=== PATIENT | female | born 1945 | race Caucasian/White ===

== ENCOUNTER 2020-03-09 12:55 | Outpatient (REF) | payer MEDICARE, OTHER, SELFPAY ==
[2020-03-09 13:59] LABS: MANUAL DIFF FLAG NO
[2020-03-09 14:05] LABS: Basophils Percent Auto 0.5 % (0-2); Eosinophils Absolute Auto 0.1 X10*3/uL (0.0-0.4); Eosinophils Percent Auto 2.5 % (0-4); Hematocrit 41.6 % (37-47); Hemoglobin 14.1 g/dl (12.0-16.0); Imm Gran Abs Auto 0.01 X10*3/uL (0.00-0.03); Imm Gran Pct Auto 0.2 % (0.0-0.4); Lymphocytes Absolute Auto 1.3 X10*3/uL (1.2-4.9); Mean Corpuscular HGB Conc 33.9 g/dl (31.0-35.0); Mean Corpuscular Hemoglobin 31.7 pg (27.0-33.0); Mean Corpuscular Volume 93.5 fL (80-98); Mean Platelet Volume 10.6 fL (9.4-12.3); Monocytes Absolute Auto 0.5 X10*3/uL (0.1-1.2); Monocytes Percent Auto 8.1 % (2-11); Neutrophils Absolute Auto 3.8 X10*3/uL (2.0-8.3); Neutrophils Percent Auto 66.7 % (45-73); Platelet Count 170 X10*3/uL (160-400); Red Blood Count 4.45 X10*6/uL (4.20-5.50); Red Cell Distribution Width 13.4 % (11.0-16.0); White Blood Count 5.7 X10*3/uL (4.8-10.8)
[2020-03-09 14:30] LABS: Alanine Aminotransferase 27 U/L (0-31); Albumin Level 4.2 g/dL (3.5-5.0); Alkaline Phosphatase 79 U/L (39-117); Anion Gap 15 (12-20); Aspartate Amino Transferase 22 U/L (5-31); Bilirubin Total 0.5 mg/dL (0.0-1.0); Blood Urea Nitrogen 14 mg/dL (9-16); C Reactive Protein 0.36 mg/dL (< or = 0.50); Calcium 8.9 mg/dL (8.4-10.2); Carbon Dioxide 29 mmol/L (22-29); Chloride 101 mmol/L (96-108); Estimated Glomerular Filt Rate > 60; Glucose Random 153 mg/dL (60-115); Potassium 4.5 mmol/l (3.3-5.1); Sodium 140 mmol/L (135-145); Total Protein 6.9 g/dL (6.5-8.0)
[2020-03-09 15:03] LABS: Erythrocyte Sedimentation Rate 14 MM/HR (0-20)
== END 2020-03-09 12:56 | disposition home or self-care (01) ==
LOC: HO.LAB 12:55
PROVIDERS: PCP Internal Medicine; Visit Provider Student in an Organized Health Care Education/Training Program
DX: L40.50 Arthropathic psoriasis, unspecified (principal); Z79.899 Other long term (current) drug therapy
CPT/HCPCS: 36415; 80053; 85025; 85652; 86140

== ENCOUNTER 2020-10-09 13:15 | Outpatient (REF) | payer MEDICARE, OTHER, SELFPAY ==
[2020-10-09 14:24] LABS: MANUAL DIFF FLAG NO
[2020-10-09 14:28] LABS: Basophils Percent Auto 0.6 % (0-2); Eosinophils Absolute Auto 0.2 X10*3/uL (0.0-0.4); Eosinophils Percent Auto 3.2 % (0-4); Hematocrit 43.3 % (37-47); Hemoglobin 14.2 g/dl (12.0-16.0); Imm Gran Abs Auto 0.02 X10*3/uL (0.00-0.03); Imm Gran Pct Auto 0.3 % (0.0-0.4); Lymphocytes Absolute Auto 1.6 X10*3/uL (1.2-4.9); Lymphocytes Percent Auto 23.1 % (20-40); Mean Corpuscular HGB Conc 32.8 g/dl (31.0-35.0); Mean Corpuscular Hemoglobin 29.1 pg (27.0-33.0); Mean Corpuscular Volume 88.7 fL (80-98); Mean Platelet Volume 10.8 fL (9.4-12.3); Monocytes Absolute Auto 0.8 X10*3/uL (0.1-1.2); Monocytes Percent Auto 11.2 % (2-11); Neutrophils Absolute Auto 4.3 X10*3/uL (2.0-8.3); Neutrophils Percent Auto 61.6 % (45-73); Platelet Count 199 X10*3/uL (160-400); Red Blood Count 4.88 X10*6/uL (4.20-5.50); Red Cell Distribution Width 14.2 % (11.0-16.0)
[2020-10-09 14:53] LABS: Alanine Aminotransferase 15 U/L (0-31); Albumin Level 3.9 g/dL (3.5-5.0); Alkaline Phosphatase 86 U/L (39-117); Anion Gap 16 (12-20); Aspartate Amino Transferase 19 U/L (5-31); Bilirubin Total 0.6 mg/dL (0.0-1.0); Blood Urea Nitrogen 22 mg/dL (9-16); C Reactive Protein 0.42 mg/dL (< or = 0.50); Calcium 9.7 mg/dL (8.4-10.2); Carbon Dioxide 29 mmol/L (22-29); Chloride 97 mmol/L (96-108); Estimated Glomerular Filt Rate 51; Glucose Random 198 mg/dL (60-115); Sodium 138 mmol/L (135-145); Total Protein 6.9 g/dL (6.5-8.0)
[2020-10-09 15:11] LABS: Erythrocyte Sedimentation Rate 5 MM/HR (0-20)
== END 2020-10-09 13:16 | disposition home or self-care (01) ==
LOC: HO.LAB 13:15
PROVIDERS: PCP Internal Medicine; Visit Provider Student in an Organized Health Care Education/Training Program
DX: L40.50 Arthropathic psoriasis, unspecified (principal); Z79.899 Other long term (current) drug therapy
CPT/HCPCS: 36415; 80053; 85025; 85652; 86140; 99212

== ENCOUNTER 2023-01-06 13:58 | Outpatient (AMB) | payer MEDICARE, MEDICAID, SELFPAY ==
[2023-01-06 14:08] VITALS: BP 118/66; PULSE 62; TEMP 36.7; O2SAT 97; BMI 35.2
--- NOTE | 2023-01-06 14:08 | MHC.OFFVIS ---
Intake Vital Signs 01/06/23 14:08 Height 5 ft 3 in Weight 198 lb 10.184 oz BMI 35.2 BP 118/66 Blood Pressure Location Rt brachial Position Sitting Pulse 62 Pulse Source Pulse Oximeter Temp 98.0 F Temp Source Skin Pulse Oximetry (%) 97 Intake Visit Reasons: PSA Intake Note: Pt seen today to establish care. Last time she was seen by rheumatology was 10/09/20. C/o pain in back, ankles and feet. 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 Required: No Accompanied by: Self / Same As Patient Allergies leflunomide [Arava] Allergy (Intermediate, Verified 01/06/23 14:12) swollen lisinopril [Zestril] Allergy (Intermediate, Verified 01/06/23 14:12) Cough penicillin V Allergy (Intermediate, Verified 01/06/23 14:12) Rash Bees Allergy (Intermediate, Uncoded 01/06/23 14:12) Anaphylaxis Medication List - Last Reconciled 01/06/23 by Ken Currie MD albuterol sulfate 90 mcg/actuation (Ventolin HFA) inhalation amiodarone 200 mg PO DAILY amlodipine 10 mg PO DAILY apixaban (Eliquis) 5 mg PO BID budesonide-formoterol 80-4.5 mcg/actuation (Symbicort) 2 puffs inhalation BID carvedilol 25 mg PO BID dapagliflozin propanediol (Farxiga) mg PO fluticasone furoate-vilanterol 100-25 mcg/dose (Breo Ellipta) 1 ea inhalation DAILY insulin NPH isoph U-100 human (Novolin N NPH U-100 Insulin isophane) units subcut methotrexate sodium 15 mg (6 x 2.5 mg) PO QWEEK nystatin topical omeprazole 20 mg PO DAILY sacubitril-valsartan 97-103 mg (Entresto) tabs PO simvastatin 10 mg PO DAILY spironolactone mg PO tiotropium bromide (Spiriva with HandiHaler) 1 cap inhalation DAILY trazodone mg PO HPI HPI Comments History of Present Illness Details This is a 77-year-old female with psoriasis and psoriatic arthritis who presents for follow-up. She was last evaluated by Dr. Cueto 10/2020. She states that she started having psoriasis in her early teens, she develops psoriatic arthritis 10-15 years ago. She stated that when she was started on methotrexate her psoriasis rash resolved completely. She would have swollen and tender joints. Over the last year or so patient has been having right shoulder stiffness and bilateral thumb pain. Her psoriasis has come back and she has rashes behind her right ear, her lower back and her umbilicus. She does not use a steroid cream [facility] Medical History (Updated 01/06/23 @ 15:29 by Ken Currie MD) Psoriasis Encounter for testing for latent tuberculosis infection Screening for viral disease Psoriatic arthritis Pacemaker Surgical History History of knee joint replacement Hx of cholecystectomy H/O: hysterectomy Family History Father CVD (cardiovascular disease) Mother Uterine cancer Social History Alcohol intake: current Alcohol intake frequency: holidays/special occasions only Patient Tobacco Use Status: Never used Tobacco Review of Systems [facility] Reports arthralgias, Denies joint swelling and Reports stiffness Skin/Breast Reports pruritus and Reports rash Physical Exam Vital Signs: Last Vital Signs Temp 98.0 F 01/06/23 14:08 Pulse 62 01/06/23 14:08 BP 118/66 01/06/23 14:08 Pulse Ox 97 01/06/23 14:08 BMI result Body Mass Index 35.2 Const General: cooperative, no acute distress and well developed Orientation/consciousness: patient oriented x3 HEENT Head: Yes normal to inspection Resp Effort & Inspection: normal respiratory effort and able to speak in complete sentences Auscultation: clear to auscultation bilaterally Skin Other: Large patches of psoriasis on her lower back Small patch of psoriasis behind the right ear, psoriasis rash on her umbilicus Neuro General: patient oriented x3 Extrem Other: No synovitis on exam. Bilateral Heberden's nodes Bilateral 1st CMC tenderness, mild Positive empty can test on the right Negative straight leg raise test Negative Marla test bilaterally Assessment & Plan Assessment & Plan (1) Psoriatic arthritis: Code(s): L40.50 - Arthropathic psoriasis, unspecified Plan: This is a 77-year-old female with psoriasis and psoriatic arthritis who presents for follow-up. States that she was diagnosed with psoriasis in her early teens and psoriatic arthritis 10-15 years ago. Her psoriasis and psoriatic arthritis responded very well to methotrexate 15 mg weekly. She stated however that she discontinued methotrexate due to hair loss, which she grew after discontinuation. Upon evaluation today I do not see any active synovitis. Her joint pain is due to right rotator cuff tendinitis and bilateral thumb arthritis We might consider restarting methotrexate to treat her psoriasis. 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 Will monitor patient for side effects with frequent lab work. Advised patient to take folic acid daily to prevent complications of methotrexate. Check labs today, plan to start methotrexate after labs are completed (3) Arthritis of carpometacarpal (CMC) joint of both thumbs: Code(s): M18.0 - Bilateral primary osteoarthritis of first carpometacarpal joints Plan: I educated patient about the benign nature of this condition. Patient is not interested in any specific treatment for it at this date (4) Rotator cuff arthropathy of right shoulder: Code(s): M12.811 - Other specific arthropathies, not elsewhere classified, right shoulder Plan: Patient states that her symptoms are mild and is not interested in physical therapy Plan I spent 45 minutes reviewing patient's chart, evaluating patient, ordering diagnostic workup, counseling patient and documenting in the chart Orders: Orders Complete Blood Count Auto Diff Today Z79.899 - Other technician terminal and repeater (current) drug therapy Comprehensive Met. Panel Today Z79.899 - Other detention (current) drug therapy C Reactive Protein Today Z79.899 - Other detention (current) drug therapy T Spot TB Today Z11.7 - Encounter for testing for latent tuberculosis infection XR shoulder LT min 2V Today Z79.899 - Other technician terminal and repeater (current) drug therapy XR shoulder RT min 2V Today Z79.899 - Other detention (current) drug therapy Complete Blood Count Auto Diff 2 Months Z79.899 - Other technician terminal and repeater (current) drug therapy Comprehensive Met. Panel 2 Months Z79.899 - Other technician terminal and repeater (current) drug therapy C Reactive Protein 2 Months Z79.899 - Other detention (current) drug therapy Complete Blood Count Auto Diff 5 Months Z79.899 - Other detention (current) drug therapy Erythrocyte Sedimentation Rate 5 Months Z79.899 - Other detention (current) drug therapy Erythrocyte Sedimentation Rate Today Z79.899 - Other detention (current) drug therapy Hepatitis A,B,C Profile Today Z11.59 - Encounter for screening for other viral diseases XR hand wrist LT Today Z79.899 - Other technician terminal and repeater (current) drug therapy XR hand wrist RT Today Z79.899 - Other detention (current) drug therapy Erythrocyte Sedimentation Rate 2 Months Z79.899 - Other detention (current) drug therapy Comprehensive Met. Panel 5 Months Z79.899 - Other technician terminal and repeater (current) drug therapy C Reactive Protein 5 Months Z79.899 - Other technician terminal and repeater (current) drug therapy Coding Level of Care Code Est Pt Level 5 (29942) Diagnoses Psoriatic arthritis L40.50 longterm methotrexate user Z79.899 Arthritis of carpometacarpal (CMC) joint of both thumbs M18.0 Rotator cuff arthropathy of right shoulder M12.811
== END 2023-01-06 14:46 | disposition home or self-care (01) ==
PROVIDERS: Visit Provider Student in an Organized Health Care Education/Training Program
DX: L40.50 Arthropathic psoriasis, unspecified (principal); Z79.631 Long term (current) use of antimetabolite agent; M18.0 Bilateral primary osteoarthritis of first carpometacarpal joints; M12.811 Other specific arthropathies, not elsewhere classified, right shoulder
CPT/HCPCS: 99215

== ENCOUNTER → 2023-01-06 13:58 | Outpatient (BNVA) | payer MEDICARE, MEDICAID, SELFPAY | PROVIDERS: Visit Provider Student in an Organized Health Care Education/Training Program | DX: L40.50 Arthropathic psoriasis, unspecified (principal); M18.0 Bilateral primary osteoarthritis of first carpometacarpal joints; M12.811 Other specific arthropathies, not elsewhere classified, right shoulder; Z79.899 Other long term (current) drug therapy | CPT/HCPCS: 99212 ==

== ENCOUNTER 2023-01-10 09:50 | Outpatient (REF) | payer MEDICARE, OTHER, MEDICAID, SELFPAY ==
[2023-01-10 11:54] LABS: MANUAL DIFF FLAG NO
[2023-01-10 12:16] LABS: Basophils Absolute Auto 0.1 X10*3/uL (0.0-0.2); Basophils Percent Auto 0.8 % (0-2); Eosinophils Absolute Auto 0.2 X10*3/uL (0.0-0.4); Eosinophils Percent Auto 2.9 % (0-4); Hematocrit 39.8 % (37.0-47.0); Hemoglobin 13.1 g/dl (12.0-16.0); Imm Gran Abs Auto 0.02 X10*3/uL (0.00-0.03); Imm Gran Pct Auto 0.3 % (0.0-0.4); Lymphocytes Absolute Auto 1.2 X10*3/uL (1.2-4.9); Mean Corpuscular HGB Conc 32.9 g/dl (31.0-35.0); Mean Corpuscular Hemoglobin 31.5 pg (27.0-33.0); Mean Corpuscular Volume 95.7 fL (80.0-98.0); Mean Platelet Volume 10.4 fL (9.4-12.3); Monocytes Absolute Auto 0.7 X10*3/uL (0.1-1.2); Monocytes Percent Auto 8.9 % (2-11); Neutrophils Absolute Auto 5.1 x10*3/uL (2.0-8.3); Neutrophils Percent Auto 70.1 % (45-73); Platelet Count 155 X10*3/uL (160-400); Red Blood Count 4.16 X10*6/uL (4.20-5.50); Red Cell Distribution Width 13.2 % (11.0-16.0); White Blood Count 7.3 X10*3/uL (4.8-10.8)
[2023-01-12 16:49] LABS: TS Negative Control Passed; TS Panel A 0; TS Panel B 0; TS Positive Control Passed; TSpotTB Negative (Negative)
== END 2023-01-10 09:51 | disposition home or self-care (01) ==
LOC: HO.WFDLDS 09:50
PROVIDERS: Visit Provider Student in an Organized Health Care Education/Training Program
DX: Z11.7 Encounter for testing for latent tuberculosis infection (principal); Z11.59 Encounter for screening for other viral diseases; Z79.899 Other long term (current) drug therapy; Z72.89 Other problems related to lifestyle
CPT/HCPCS: 36415; 80053; 85025; 85652; 86140; 86481; 86704; 86706; 86709; 86803; 87340

== ENCOUNTER 2023-03-20 13:49 | Outpatient (REF) | payer MEDICARE, MEDICAID, SELFPAY ==
--- NOTE | ~2023-03-20 | XR_ITS ---
EXAMINATION: Bilateral shoulder series CLINICAL INFORMATION: Reason for Exam Z79.899 - Other emt intermediate (current) drug therapy COMPARISON: None. TECHNIQUE: 4 views of each shoulder FINDINGS: Right shoulder: Acromioclavicular joint severe osteoarthritis with prominent marginal osteophytes subchondral cystic change and some calcification in capsule. Glenoid humeral joint: Chondrocalcinosis. Marginal osteophytes indicative of mild osteoarthritis. Enthesopathic cystic change at the greater tuberosity. Pacer present overlying the right chest with leads intact. Left shoulder: Acromioclavicular joint there is mild osteoarthritis with marginal osteophytes and some calcification in the capsule similar to that noted on the right. Glenohumeral joint: Mild osteoarthritis with small marginal osteophytes. Enthesopathic cystic change in the greater tuberosity. XR/XR shoulder LT min 2V Impression: RIGHT SHOULDER: Degenerative changes with chondrocalcinosis. LEFT SHOULDER: Mild osteoarthritis of the glenohumeral and acromioclavicular joints.
--- NOTE | ~2023-03-20 | XR_ITS ---
EXAMINATION: Bilateral hand series CLINICAL INFORMATION: Reason for Exam Z79.899 - Other halfway (current) drug therapy COMPARISON: None. TECHNIQUE: 3 views of each hand including wrist. FINDINGS: Right hand: There is chondrocalcinosis noted in the ulnocarpal articulation. There is arterial calcification. Triscaphoid joint there is mild arthrosis with subchondral cystic change present. Mild osteoarthritis of the third and fourth metacarpophalangeal joints manifested by marginal osteophytes and/or subchondral cystic change. The interphalangeal joints: Mild osteoarthritis of the DIP joints manifested by small marginal osteophytes and/or capsular calcification. Left hand: Chondrocalcinosis. Arterial calcification. Wrist joints intact. Metacarpophalangeal joints: There is mild osteoarthritis of the third and fourth metacarpophalangeal joints manifested by small marginal osteophytes and/or subchondral cystic change. Interphalangeal joints: There is mild osteoarthritis of the third and fourth DIP joints manifested by marginal osteophytes and/or subchondral cystic change. XR/XR hand wrist RT IMPRESSION: RIGHT HAND: Chondrocalcinosis. Mild osteoarthritis of multiple joints. LEFT HAND: Chondrocalcinosis. Mild osteoarthritis of multiple joints. Calcific atherosclerotic disease.
--- NOTE | ~2023-03-20 | XR_ITS ---
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 TECHNIQUE: 4 views of each shoulder FINDINGS: Right shoulder: Acromioclavicular joint severe osteoarthritis with prominent marginal osteophytes subchondral cystic change and some calcification in capsule. Glenoid humeral joint: Chondrocalcinosis. Marginal osteophytes indicative of mild osteoarthritis. Enthesopathic cystic change at the greater tuberosity. Pacer present overlying the right chest with leads intact. Left shoulder: Acromioclavicular joint there is mild osteoarthritis with marginal osteophytes and some calcification in the capsule similar to that noted on the right. Glenohumeral joint: Mild osteoarthritis with small marginal osteophytes. Enthesopathic cystic change in the greater tuberosity. XR/XR shoulder RT min 2V Impression: RIGHT SHOULDER: Degenerative changes with chondrocalcinosis. LEFT SHOULDER: Mild osteoarthritis of the glenohumeral and acromioclavicular joints.
--- NOTE | ~2023-03-20 | XR_ITS ---
EXAMINATION: Bilateral hand series CLINICAL INFORMATION: Reason for Exam Z79.899 - Other fci (current) drug therapy COMPARISON: None. TECHNIQUE: 3 views of each hand including wrist. FINDINGS: Right hand: There is chondrocalcinosis noted in the ulnocarpal articulation. There is arterial calcification. Triscaphoid joint there is mild arthrosis with subchondral cystic change present. Mild osteoarthritis of the third and fourth metacarpophalangeal joints manifested by marginal osteophytes and/or subchondral cystic change. The interphalangeal joints: Mild osteoarthritis of the DIP joints manifested by small marginal osteophytes and/or capsular calcification. Left hand: Chondrocalcinosis. Arterial calcification. Wrist joints intact. Metacarpophalangeal joints: There is mild osteoarthritis of the third and fourth metacarpophalangeal joints manifested by small marginal osteophytes and/or subchondral cystic change. Interphalangeal joints: There is mild osteoarthritis of the third and fourth DIP joints manifested by marginal osteophytes and/or subchondral cystic change. XR/XR hand wrist LT IMPRESSION: RIGHT HAND: Chondrocalcinosis. Mild osteoarthritis of multiple joints. LEFT HAND: Chondrocalcinosis. Mild osteoarthritis of multiple joints. Calcific atherosclerotic disease.
[2023-03-20 14:03] LABS: MANUAL DIFF FLAG NO
[2023-03-20 14:28] LABS: Basophils Percent Auto 0.6 % (0-2); Eosinophils Absolute Auto 0.1 X10*3/uL (0.0-0.4); Hematocrit 37.4 % (37.0-47.0); Hemoglobin 12.5 g/dl (12.0-16.0); Imm Gran Abs Auto 0.02 X10*3/uL (0.00-0.03); Imm Gran Pct Auto 0.3 % (0.0-0.4); Lymphocytes Absolute Auto 1.3 X10*3/uL (1.2-4.9); Mean Corpuscular HGB Conc 33.4 g/dl (31.0-35.0); Mean Corpuscular Hemoglobin 31.8 pg (27.0-33.0); Mean Corpuscular Volume 95.2 fL (80.0-98.0); Mean Platelet Volume 10.5 fL (9.4-12.3); Monocytes Absolute Auto 0.7 X10*3/uL (0.1-1.2); Monocytes Percent Auto 10.4 % (2-11); Neutrophils Absolute Auto 4.6 x10*3/uL (2.0-8.3); Neutrophils Percent Auto 67.7 % (45-73); Platelet Count 158 X10*3/uL (160-400); Red Blood Count 3.93 X10*6/uL (4.20-5.50); Red Cell Distribution Width 13.8 % (11.0-16.0); White Blood Count 6.8 X10*3/uL (4.8-10.8)
[2023-03-20 14:51] LABS: Alanine Aminotransferase 15 U/L (0-31); Albumin Level 4.2 g/dL (3.5-5.0); Alkaline Phosphatase 89 U/L (39-117); Anion Gap 14 (12-20); Aspartate Amino Transferase 18 U/L (5-31); Bilirubin Total 0.5 mg/dL (0.0-1.0); Blood Urea Nitrogen 22 mg/dL (9-16); C Reactive Protein 0.43 mg/dL (< or = 0.50); Calcium 9.5 mg/dL (8.4-10.2); Carbon Dioxide 33 mmol/L (22-29); Chloride 96 mmol/L (96-108); Estimated Glomerular Filt Rate 38; Glucose Random 218 mg/dL (60-115); Potassium 4.3 mmol/L (3.3-5.1); Sodium 139 mmol/L (135-145); Total Protein 7.4 g/dL (6.5-8.0)
[2023-03-20 15:13] LABS: Erythrocyte Sedimentation Rate 17 MM/HR (0-20)
== END 2023-03-20 13:50 | disposition home or self-care (01) ==
LOC: HO.XRAY 13:49
PROVIDERS: Visit Provider Student in an Organized Health Care Education/Training Program
DX: Z79.899 Other long term (current) drug therapy (principal); M19.041 Primary osteoarthritis, right hand; M19.042 Primary osteoarthritis, left hand; M19.012 Primary osteoarthritis, left shoulder; M19.011 Primary osteoarthritis, right shoulder
CPT/HCPCS: 36415; 73030; 73110; 73130; 80053; 85025; 85652; 86140

== ENCOUNTER 2023-03-22 10:37 | Outpatient (AMB) | payer MEDICARE, MEDICAID, SELFPAY ==
--- OUTSIDE RECORDS SUMMARY | 2023-03-22 10:38 | XMS_ITS | Continuity of Care Document ---
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 Refills 11, Maintenance, 01/12/22 12:09:00 EDT, Aerosol, Route to Pharmacy Electronically, [id number], [facility], 163, cm, 01/12/22 10:50:00 EDT,... Start Date: 01/12/22 Stop Date: 01/07/23 Status: Ordered amiodarone 200 mg oral tablet 200 mg, 1, tablet, By Mouth, Daily, Refills 0, Maintenance, 12/13/22 9:57:00 EDT, Partial fill uponpatient request if the prescription is for a schedule II opioid drug. Start Date: 12/13/22 Status: Ordered amLODIPine 10 mg oral tablet 10 mg, 1, tablet, By Mouth, Daily, # 90 tablet, Refills 2, Tot. Refills 2, Maintenance, 10/19/22 11:20:00 EDT, Route to Pharmacy Electronically, [facility], Partial fill upon patient request if the prescription is for a schedule II opioid d... Start Date: 10/19/22 Status: Ordered Breo Ellipta 100 mcg-25 mcg/inh inhalation powder 1 puffs, Inhalation, Daily, # 1 each, 11 Refills, Maintenance, 01/12/22 12:08:00 EDT, Inhaler, [facility], Partial fill upon patient request if the prescription is for a schedule II opioiddrug., 1 puffs Inhalation Daily,x30 days, 163, cm,... Start Date: 01/12/22 Stop Date: 01/07/23 Status: Ordered carvedilol 25 mg oral tablet 50 mg, 2, tablet, By Mouth, 2 times a day, # 360 tablet, Refills 11, Tot. Refills 11, Maintenance, 07/01/22 11:12:00 EDT, Route to Pharmacy Electronically, [facility], Dose increase, 163, cm, 03/21/22 12:14:00 EST, Height, 87.3, kg, ... Start Date: 07/01/22 Stop Date: 06/15/25 Status: Ordered dapagliflozin 10 mg oral tablet 1 tablet = 10 mg, By Mouth, Daily, # 90 tablet, 11 Refills, Maintenance, 03/21/22 13:01:00 EST, Tablet, [facility], Dose increase, 163, cm, 03/21/22 12:14:00 EST, Height, 87.3, kg, 08/12/21 7:07:00 EDT, Dry Weight Start Date: 03/21/22 Status: Ordered DIURETIC INTERVENTION DIURETIC INTERVENTION, See Instructions, # 1 each, Refills 0, Tot. Refills 0, Maintenance, Stardard Intervention for high PAD (PAD above goal for at least 2 readings) Double dose of loop diuretic for 2 days. Return to baseline dose of diuretics f... Start Date: 08/18/21 Status: Ordered Eliquis 5 mg oral tablet 1 tablet = 5 mg, By Mouth, 2 times a day, # 60 tablet, 0 Refills, Maintenance, 11/28/20 18:30:00 EDT, Tablet, Partial fill upon patient request if the prescription is for a schedule II opioid drug. Start Date: 11/28/20 Status: Ordered Entresto 97 mg-103 mg oral tablet 1 tablet, By Mouth, 2 times a day, # 60 tablet, 5 Refills, Maintenance, 12/21/22 12:30:00 EDT, [facility], 30, Take 1 tablet by mouth twice daily, 163, cm, 12/13/22 9:49:00 EDT, Height, 87.3, kg, 08/12/21 7:07:00 EDT, Dry Weight Start Date: 12/21/22 Status: Ordered EpiPen 2-Dave 0.3 mg injectable kit = 0.3 mg, Intramuscular, Once, 0 Refills, Maintenance, 02/08/21 11:58:00 EST, Partial fill upon patient request if the prescription is for a schedule II opioid drug. Start Date: 02/08/21 Status: Ordered meclizine 25 mg oral tablet 1 tablet = 25 mg, By Mouth, 3 times a day, 0 Refills, Maintenance, 02/08/21 12:00:00 EST, Partial fill upon patient request if the prescription is for a schedule II opioid drug. Start Date: 02/08/21 Status: Ordered nitroglycerin 0.4 mg sublingual tablet 1 tablet = 0.4 mg, Sublingual, Every 5 minutes, PRN for chest pain, # 25 tablet, 2 Refills, Maintenance, 04/24/20 11:22:00 EST, Tablet, [facility], 163, cm, 02/14/20 10:48:00 EST, Height, 99, kg, 09/19/19 18:05:00 EDT, Dry Weight Start Date: 04/24/20 Status: Ordered NovoLIN N FlexPen 100 units/mL subcutaneous suspension Subcutaneous Infusion, 2 times a day, 0 Refills, Maintenance, 02/08/21 12:01:00 EST, Partial fill upon patient request if the prescription is for a schedule II opioid drug. Start Date: 02/08/21 Status: Ordered omeprazole 20 mg oral delayed release tablet 1 tablet = 20 mg, By Mouth, Daily, # 90 tablet, 0 Refills, Maintenance, 06/12/20 12:27:00 EST, CR Tablet, Partial fill upon patient request if the prescription is for a schedule II opioid drug. Start Date: 06/12/20 Status: Ordered simvastatin 10 mg oral tablet 10 mg, 1, tablet, By Mouth, Daily, Refills 0, Maintenance, 10/22/20 18:04:00 EDT, Partial fill uponpatient request if the prescription is for a schedule II opioid drug. Start Date: 10/22/20 Status: Ordered Spiriva Respimat 1.25 mcg/inh inhalation aerosol 2 sprays, Inhalation, Daily, # 1 each, 11 Refills, Maintenance, 01/12/22 12:08:00 EDT, [facility], 163, cm, 01/12/22 10:50:00 EDT, Height, 87.3, kg, 08/12/21 7:07:00 EDT, Dry Weight Start Date: 01/12/22 Stop Date: 01/07/23 Status: Ordered spironolactone 50 mg oral tablet 1 tablet = 50 mg, By Mouth, Daily, dose increase, # 90 tablet, 3 Refills, Maintenance, 05/05/22 11:55:00 EST, [facility], 163, cm, 03/21/22 12:14:00 EST, Height, 87.3, kg, 08/12/21 7:07:00EDT, Dry Weight Start Date: 05/05/22 Stop Date: 04/30/23 Status: Ordered torsemide 20 mg oral tablet 1 tablet = 20 mg, By Mouth, Daily, # 90 tablet, 11 Refills, Maintenance, 07/13/21 11:14:00 EDT, Tablet, [facility], Partial fill upon patient request if the prescription is for a schedule II opioid drug., 163, cm, 07/13/21 10:43:00 EDT, Hei... Start Date: 07/13/21 Status: Ordered traZODone 100 mg oral tablet TAKE 1 2 TO 1 (ONE HALF TO ONE) TABLET BY MOUTH ONCE DAILY AT BEDTIME NEEDED FOR 30 DAYS Start Date: 11/05/20 Status: Ordered Tylenol Caplet = 650 mg, By Mouth, Every 4 hours, PRN as needed, 0 Refills, Maintenance, 09/25/20 12:29:00 EDT, Partial fill upon patient request if the prescription is for a schedule II opioid drug. 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 Active Left bundle branch block Confirmed Active Mild asthma Confirmed Active Obese class I Confirmed Active Primary cardiomyopathy Confirmed Active Phlebitis and thrombophlebitis of superficial veins of upper extremities Confirmed Active Social History Social History Type Response Smoking Status Never (less than 100 in lifetime) entered on: 09/19/19 Sex Patient Care team information Care Team Personnel Name: Tenisha Lara MD Position: [facility] Physician - Pediatrics Member Role: PCP Address: Address: [address] [place] [id number]- Name: Bettina Moran RN Position: S RN Member Role: Primary Care Nurse Name: Britany Fuentes RN Position: [facility] RN Member Role: Primary Care Nurse Name: Nathan ECHEVERRIA, Jenaro Hinojosa Position: [facility] Cardiology MD Member Role: Lifetime Consulting Physician Address: Address: [address] [place] [address] [place] [address]- Name: Sandra Dubois RN Position: [facility] RN Member Role: Primary Care Nurse Name: Taylor Lopes RN Position: [facility] RN Member Role: Primary Care Nurse Name: Haresh Deal RN Position: [facility] SN RN Member Role: Primary Care Nurse Name: Taina Lambert RN Position: [facility] RN Member Role: Primary Care Nurse Name: Teri Azevedo RN Position: [facility] SN RN Member Role: Primary Care Nurse Name: Zoie Abdalla RN Position: [facility] RN Member Role: Primary Care Nurse Care Team Related Persons Name: BESSIE ORTIZ Address: home [address] [place] [address] Name: SAMANTHA KHAN Address: home [address] [place] [address] Name: CARMEN WORTHY
--- OUTSIDE RECORDS SUMMARY | 2023-03-22 10:38 | XMS_ITS | Continuity of Care Document ---
Author Name Unknown Organization [facility] Address [address] [place] [id number]- Care Team Providers Care Laboratory Sampler Name Role Phone Tenisha Lara MD Primary Care Physician Encounter [facility] [place] R [id number] Date(s): 03/29/22 - 04/28/22 [facility] [address] [place] [address]- [place] Allergies, Adverse Reactions, Alerts Substance Reaction Severity Status codeine headache Active penicillins 1 Active Arava Active Zestril cough Active Augmentin Active Bee Stings Active 1Tolerates cefepime Medications albuterol CFC free 90 mcg/inh inhalation aerosol 2, puffs, Inhalation, 4 times a day, PRN, # 18 Gm, Refills 11, Tot. Refills 11, Maintenance, 01/12/22 12:09:00 EDT, Aerosol, Route to Pharmacy Electronically, [id number], [facility], 163, cm, 01/12/22 10:50:00 EDT,... Start Date: 01/12/22 Stop Date: 01/07/23 Status: Ordered amiodarone 200 mg oral tablet 200 mg, 1, tablet, By Mouth, Daily, # 30 tablet, Refills 1, Tot. Refills 1, Maintenance, 02/21/22 12:41:00 EST, Route to Pharmacy Electronically, [facility], Partial fill upon patient request if the prescription is for a schedule II opioid... Start Date: 02/21/22 Stop Date: 04/22/22 Status: Ordered amLODIPine 10 mg oral tablet 10 mg, 1, tablet, By Mouth, Daily, # 90 tablet, Refills 11, Tot. Refills 11, Maintenance, 07/13/21 11:13:00 EDT, Route to Pharmacy Electronically, [facility], Partial fill upon patient request if the prescription is for a schedule II opioid... Start Date: 07/13/21 Status: Ordered Breo Ellipta 100 mcg-25 mcg/inh inhalation powder 1 puffs, Inhalation, Daily, # 1 each, 11 Refills, Maintenance, 01/12/22 12:08:00 EDT, Inhaler, [facility], Partial fill upon patient request if the prescription is for a schedule II opioiddrug., 1 puffs Inhalation Daily,x30 days, 163, cm,... Start Date: 01/12/22 Stop Date: 01/07/23 Status: Ordered carvedilol 25 mg oral tablet 25 mg, 1, tablet, By Mouth, 2 times a day, # 180 tablet, Refills 11, Tot. Refills 11, Maintenance, 07/13/21 11:12:00 EDT, Route to Pharmacy Electronically, [facility], Dose increase, 163, cm, 07/13/21 10:43:00 EDT, Height, 93.5, kg, 2... Start Date: 07/13/21 Status: Ordered dapagliflozin 10 mg oral tablet 1 tablet = 10 mg, By Mouth, Daily, # 90 tablet, 11 Refills, Maintenance, 03/21/22 13:01:00 EST, Tablet, [facility], Dose increase, 163, cm, 03/21/22 [...] By Mouth, 2 times a day, # 180 tablet, 11 Refills, Maintenance, 10/25/21 15:10:00 EDT, Tablet, [facility], Partial fill upon patient request if the prescription is for a scheduleII opioid drug., 1 tablet By Mouth 2 times a day, 1... Start Date: 10/25/21 Status: Ordered EpiPen 2-Dave 0.3 mg injectable [...] 2 Refills, Maintenance, 04/24/20 11:22:00 EST, Tablet, [facility], 163, cm, 02/14/20 10:48:00 EST, [...] each, 11 Refills, Maintenance, 01/12/22 12:08:00 EDT, [facility], 163, cm, 01/12/22 10:50:00 EDT, Height, 87.3, kg, 08/12/21 7:07:00 EDT, Dry Weight Start Date: 01/12/22 Stop Date: 01/07/23 Status: Ordered spironolactone 50 mg oral tablet 1 tablet = 50 mg, By Mouth, Daily, dose increase, # 30 tablet, 3 Refills, Maintenance, 04/01/22 12:09:00 EST, [facility], 163, cm, 03/21/22 12:14:00 EST, Height, 87.3, kg, 08/12/21 7:07:00EDT, Dry Weight Start Date: 04/01/22 Stop Date: 07/30/22 Status: Ordered torsemide 20 mg oral tablet 1 tablet = 20 mg, By Mouth, Daily, # 90 tablet, 11 Refills, Maintenance, 07/13/21 11:14:00 EDT, Tablet, [facility], Partial fill upon patient request [...] Care team information Care Team Personnel Name: Aura Fox RN Position: [facility] ED RN W/OE and Tasks Member Role: Primary Care Nurse Name: Opal Gonzalez RN Position: S RN Member Role: Primary Care Nurse Name: Tenisha Lara MD Position: [facility] General Pediatrics MD Member Role: PCP Address: Address: [address] [place] [address]- Name: Bettina Moran RN Position: [facility] RN Member Role: Primary Care Nurse Name: Britany Fuentes RN Position: [facility] ED RN W/OE and Tasks Member Role: Primary Care Nurse Name: Jenaro Evans MD Position: [facility] Cardiology MD Member Role: Lifetime Consulting Physician Address: Address: [address] [place] [address] Cardiovascular [place], [place] [address] Name: Sandra Dubois RN Position: [facility] RN Member Role: Primary Care Nurse Name: Taylor Lopes RN Position: [facility] RN Member Role: Primary Care Nurse Name: Haresh Deal RN Position: S RN Member Role: Primary Care Nurse Name: Taina Lambert RN Position: S RN Member Role: Primary Care Nurse Name: Teri Azevedo RN Position: [facility] SN RN Member Role: Primary Care Nurse Name: Zoie Abdalla RN Position: S RN Member Role: Primary Care Nurse Care Team Related Persons Name: BESSIE ORTIZ Address: home [address] [place] [address] Name: SAMANTHA KHAN Address: home [address] [place] [address] Name: CARMEN WORTHY
--- OUTSIDE RECORDS SUMMARY | 2023-03-22 10:38 | XMS_ITS | Continuity of Care Document ---
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 Refills 11, Maintenance, 01/12/22 12:09:00 EDT, Aerosol, Route to Pharmacy Electronically, [id number], [facility], 163, cm, 01/12/22 10:50:00 EDT,... Start Date: 01/12/22 Stop Date: 01/07/23 Status: Ordered amiodarone 200 mg oral tablet 200 mg, 1, tablet, By Mouth, Daily, # 30 tablet, Refills 5, Tot. Refills 5, Maintenance, 08/20/21 10:22:00 EDT, Route to Pharmacy Electronically, [facility], Partial fill upon patient request if the prescription is for a schedule II opioid... Start Date: 08/20/21 Status: Ordered amLODIPine 10 mg oral tablet 10 mg, 1, tablet, By Mouth, Daily, # 90 tablet, Refills 11, Tot. Refills 11, Maintenance, 07/13/21 11:13:00 EDT, Route to Pharmacy Electronically, [facility], Partial fill upon patient request if the prescription is for a schedule II opioid... Start Date: 07/13/21 Status: Ordered Breo Ellipta 100 mcg-25 mcg/inh inhalation powder 1 puffs, Inhalation, Daily, # 1 each, 11 Refills, Maintenance, 01/12/22 12:08:00 EDT, Inhaler, [facility], Partial fill upon patient request if the prescription is for a schedule II opioiddrug., 1 puffs Inhalation Daily,x30 days, 163, cm,... Start Date: 01/12/22 Stop Date: 01/07/23 Status: Ordered carvedilol 25 mg oral tablet 25 mg, 1, tablet, By Mouth, 2 times a day, # 180 tablet, Refills 11, Tot. Refills 11, Maintenance, 07/13/21 11:12:00 EDT, Route to Pharmacy Electronically, [facility], Dose increase, 163, cm, 07/13/21 10:43:00 EDT, Height, 93.5, kg, ... Start Date: 07/13/21 Status: Ordered dapagliflozin 5 mg oral tablet 1 tablet = 5 mg, By Mouth, Daily, # 30 tablet, 11 Refills, Maintenance, 12/15/21 12:12:00 EDT, Tablet, [facility], this is a dose decrease, 163, cm, 10/25/21 14:46:00 EDT, Height, 87.3, kg, 08/12/21 7:07:00 EDT, Dry Weight Start Date: 12/15/21 Stop Date: 12/10/22 Status: Ordered DIURETIC INTERVENTION DIURETIC INTERVENTION, See [...] 11 Refills, Maintenance, 10/25/21 15:10:00 EDT, Tablet, [facility], Partial fill upon patient [...] 2 Refills, Maintenance, 04/24/20 11:22:00 EST, Tablet, [facility], 163, cm, 02/14/20 10:48:00 [...] each, 11 Refills, Maintenance, 01/12/22 12:08:00 EDT, [facility], 163, cm, 01/12/22 10:50:00 EDT, Height, 87.3, kg, 08/12/21 7:07:00 EDT, Dry Weight Start Date: 01/12/22 Stop Date: 01/07/23 Status: Ordered spironolactone 25 mg oral tablet 25 mg, 1, tablet, By Mouth, Daily, # 90 tablet, Refills 11, Tot. Refills 11, Maintenance, 10/25/21 15:11:00 EDT, Route to Pharmacy Electronically, [facility], Dose increase, 163, cm, 10/25/21 14:46:00 EDT, Height, 87.3, kg, 08/12/21 7:07:00... Start Date: 10/25/21 Status: Ordered torsemide 20 mg oral tablet 1 tablet = 20 mg, By Mouth, Daily, # 90 tablet, 11 Refills, Maintenance, 07/13/21 11:14:00 EDT, Tablet, [facility], Partial fill upon patient [...] Team Personnel Name: Aura Fox RN Position: [facility] ED RN W/OE and Tasks Member Role: Primary Care Nurse Name: Opal Gonzalez RN Position: [facility] RN Member Role: Primary Care Nurse Name: Tenisha Lara MD Position: [facility] General Pediatrics MD Member Role: PCP Address: Address: [address] [place] [address]- Name: Bettina Moran RN Position: [facility] RN Member Role: Primary Care Nurse Name: Jenaro Evans MD Position: [facility] Cardiology MD Member Role: Lifetime Consulting Physician Address: Address: [address] [place] [address] [facility] [place] [address]- Name: Sandra Dubois RN Position: [facility] RN Member Role: Primary Care Nurse Name: Taylor Lopes RN Position: [facility] RN Member Role: Primary Care Nurse Name: Haresh Deal RN Position: [facility] SN RN Member Role: Primary Care Nurse Name: Taina Lambert RN Position: [facility] RN Member Role: Primary Care Nurse Name: Teri Azevedo RN Position: [facility] SN RN Member Role: Primary Care Nurse Name: Zoie Abdalla RN Position: S RN Member Role: Primary Care Nurse Care Team Related Persons Name: BESSIE ORTIZ Address: home [address] [place] [address] Name: SAMANTHA KHAN Address: home [address] [place] [address]
--- OUTSIDE RECORDS SUMMARY | 2023-03-22 10:38 | XMS_ITS | Continuity of Care Document ---
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 Refills 11, Maintenance, 01/12/22 12:09:00 EDT, Aerosol, Route to Pharmacy Electronically, [id number], [facility], 163, cm, 01/12/22 10:50:00 EDT,... Start Date: 01/12/22 Stop Date: 01/07/23 Status: Ordered amiodarone 200 mg oral tablet 200 mg, 1, tablet, By Mouth, Daily, # 30 tablet, Refills 1, Tot. Refills 1, Maintenance, 02/21/22 12:41:00 EST, Route to Pharmacy Electronically, [facility], Partial fill upon patient request if the prescription is for a schedule II opioid... Start Date: 02/21/22 Stop Date: 04/22/22 Status: Ordered amLODIPine 10 mg oral tablet 10 mg, 1, tablet, By Mouth, Daily, # 90 tablet, Refills 11, Tot. Refills 11, Maintenance, 07/13/21 11:13:00 EDT, Route to Pharmacy Electronically, [facility], Partial fill upon patient request if the prescription is for a schedule II opioid... Start Date: 07/13/21 Status: Ordered Breo Ellipta 100 mcg-25 mcg/inh inhalation powder 1 puffs, Inhalation, Daily, # 1 each, 11 Refills, Maintenance, 01/12/22 12:08:00 EDT, Inhaler, [facility], Partial fill upon [...] 07/13/21 11:12:00 EDT, Route to Pharmacy Electronically, [facility], Dose increase, 163, cm, 07/13/21 10:43:00 EDT, Height, 93.5, kg, 2... Start Date: 07/13/21 Status: Ordered dapagliflozin 5 mg oral tablet 1 tablet = 5 mg, By Mouth, Daily, # 30 tablet, 11 Refills, Maintenance, 12/15/21 12:12:00 EDT, Tablet, [facility], this is a dose decrease, [...] 11 Refills, Maintenance, 10/25/21 15:10:00 EDT, Tablet, [facility], Partial fill upon [...] 2 Refills, Maintenance, 04/24/20 11:22:00 EST, Tablet, [facility], 163, cm, 02/14/20 [...] each, 11 Refills, Maintenance, 01/12/22 12:08:00 EDT, [facility], 163, cm, 01/12/22 10:50:00 EDT, Height, 87.3, kg, 08/12/21 7:07:00 EDT, Dry Weight Start Date: 01/12/22 Stop Date: 01/07/23 Status: Ordered spironolactone 25 mg oral tablet 25 mg, 1, tablet, By Mouth, Daily, # 90 tablet, Refills 11, Tot. Refills 11, Maintenance, 10/25/21 15:11:00 EDT, Route to Pharmacy Electronically, [facility], Dose increase, 163, cm, 10/25/21 14:46:00 EDT, Height, 87.3, kg, 08/12/21 7:07:00... Start Date: 10/25/21 Status: Ordered torsemide 20 mg oral tablet 1 tablet = 20 mg, By Mouth, Daily, # 90 tablet, 11 Refills, Maintenance, 07/13/21 11:14:00 EDT, Tablet, [facility], Partial fill upon [...] Team Personnel Name: Aura Fox RN Position: [facility] ED RN W/OE and Tasks Member Role: Primary Care Nurse Name: Opal Gonzalez RN Position: [facility] RN Member Role: Primary Care Nurse Name: Tenisha Lara MD Position: [facility] General Pediatrics MD Member Role: PCP Address: Address: [address] [place] [id number] Name: Bettina Moran RN Position: [facility] RN Member Role: Primary Care Nurse Name: Britany Fuentes RN Position: [facility] RN Member Role: Primary Care Nurse Name: Jenaro Evans MD Position: [facility] Cardiology MD Member Role: Lifetime Consulting Physician Address: Address: [address] [place] [address], [address] [place] [address] [place] [address]- Name: Sandra Dubois RN Position: [facility] RN Member Role: Primary Care Nurse Name: Taylor Lopes RN Position: [facility] RN Member Role: Primary Care Nurse Name: Haresh Deal RN Position: [facility] SN RN Member Role: Primary Care Nurse Name: Taina Lambert RN Position: [facility] RN Member Role: Primary Care Nurse Name: Teri Azevedo RN Position: [facility] SN RN Member Role: Primary Care Nurse Name: Zoie Abdalla RN Position: [facility] RN Member Role: Primary Care Nurse Care Team Related Persons Name: BESSIE ORTIZ Address: home [address] [place] [address] Name: SAMANTHA KHAN Address: home [address] [place] [address]
--- OUTSIDE RECORDS SUMMARY | 2023-03-22 10:38 | XMS_ITS | Continuity of Care Document ---
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 Role Phone Tenisha Lara MD Primary Care Physician Encounter [facility] [place] ACCT R [id number] Date(s): 01/07/22 - 02/06/22 [facility] [address] [place], [place] [address] Attending Physician: Admtr, Ar8 Admitting Physician: Admtr, Ar8 Referring Physician: Admtr, Ar8 Allergies, Adverse Reactions, Alerts Substance Reaction Severity Status codeine headache Active Bee Stings Active penicillins 1 Active Arava Active Zestril cough Active Augmentin Active 1Tolerates cefepime Medications albuterol CFC free 90 mcg/inh inhalation aerosol 2, puffs, Inhalation, 4 times a day, PRN, # 18 Gm, Refills 11, Tot. Refills 11, Maintenance, 01/12/22 12:09:00 EDT, Aerosol, Route to Pharmacy Electronically, [id number], [facility], 163, cm, 01/12/22 10:50:00 EDT,... Start Date: 01/12/22 Stop Date: 01/07/23 Status: Ordered amiodarone 200 mg oral tablet 200 mg, 1, tablet, By Mouth, Daily, # 30 tablet, Refills 5, Tot. Refills 5, Maintenance, 08/20/21 10:22:00 EDT, Route to Pharmacy Electronically, [facility], Partial fill upon patient request if the prescription is for a schedule II opioid... Start Date: 08/20/21 Status: Ordered amLODIPine 10 mg oral tablet 10 mg, 1, tablet, By Mouth, Daily, # 90 tablet, Refills 11, Tot. Refills 11, Maintenance, 07/13/21 11:13:00 EDT, Route to Pharmacy Electronically, [facility], Partial fill upon patient request if the prescription is for a schedule II opioid... Start Date: 07/13/21 Status: Ordered Breo Ellipta 100 mcg-25 mcg/inh inhalation powder 1 puffs, Inhalation, Daily, # 1 each, 11 Refills, Maintenance, 01/12/22 12:08:00 EDT, Inhaler, [facility], Partial fill upon patient request if the prescription is for a schedule II opioiddrug., 1 puffs Inhalation Daily,x30 days, 163, cm,... Start Date: 01/12/22 Stop Date: 01/07/23 Status: Ordered carvedilol 25 mg oral tablet 25 mg, 1, tablet, By Mouth, 2 times a day, # 180 tablet, Refills 11, Tot. Refills 11, Maintenance, 07/13/21 11:12:00 EDT, Route to Pharmacy Electronically, [facility], Dose increase, 163, cm, 07/13/21 10:43:00 EDT, Height, 93.5, kg, ... Start Date: 07/13/21 Status: Ordered dapagliflozin 5 mg oral tablet 1 tablet = 5 mg, By Mouth, Daily, # 30 tablet, 11 Refills, Maintenance, 12/15/21 12:12:00 EDT, Tablet, [facility], this is a dose [...] 11 Refills, Maintenance, 10/25/21 15:10:00 EDT, Tablet, [facility], Partial fill upon patient [...] 2 Refills, Maintenance, 04/24/20 11:22:00 EST, Tablet, [facility], 163, cm, 02/14/20 10:48:00 [...] each, 11 Refills, Maintenance, 01/12/22 12:08:00 EDT, [facility], 163, cm, 01/12/22 10:50:00 EDT, Height, 87.3, kg, 08/12/21 7:07:00 EDT, Dry Weight Start Date: 01/12/22 Stop Date: 01/07/23 Status: Ordered spironolactone 25 mg oral tablet 25 mg, 1, tablet, By Mouth, Daily, # 90 tablet, Refills 11, Tot. Refills 11, Maintenance, 10/25/21 15:11:00 EDT, Route to Pharmacy Electronically, [facility], Dose increase, 163, cm, 10/25/21 14:46:00 EDT, Height, 87.3, kg, 08/12/21 7:07:00... Start Date: 10/25/21 Status: Ordered torsemide 20 mg oral tablet 1 tablet = 20 mg, By Mouth, Daily, # 90 tablet, 11 Refills, Maintenance, 07/13/21 11:14:00 EDT, Tablet, [facility], Partial fill upon patient [...] on: 09/19/19 Sex Patient Care team information Personnel Name: Tenisha Lara MD Address: Address: [address] [place] [id number]
--- OUTSIDE RECORDS SUMMARY | 2023-03-22 10:38 | XMS_ITS | Continuity of Care Document ---
Author Name Unknown Organization [facility] Address [address] [place] [id number]- Care Team Providers Care Front Desk Manager Name Role Phone Tenisha Lara MD Primary Care Physician [place] [facility] [place]04[place]21 - 03/11/21 [facility] [address] [place] [address]- Attending Physician: Eleazar Yung MD Admitting Physician: Eleazar Yung MD Referring Physician: Oumou Talavera MD Allergies, Adverse Reactions, Alerts Substance Reaction Severity Status codeine headache Active penicillins 1 Active Arava Active Zestril cough Active Augmentin Active Bee Stings Active 1Tolerates cefepime Medications albuterol-ipratropium 3 mg-0.5 mg/3 ml inhalation solution 3 mL, Inhalation, 4 times a day, PRN As needed, # 30 each, 0 Refills, Maintenance, 05/21/19 9:59:00EST, Solution Start Date: 05/21/19 Status: Ordered amiodarone 200 mg oral tablet 200 mg, 1, tablet, By Mouth, Daily, # 30 tablet, Refills 5, Tot. Refills 5, Maintenance, 11/19/20 11:15:00 EDT, Route to Pharmacy Electronically, [id number], Partial fill upon patient request if the prescription is for a schedule II opioid... Start Date: 11/19/20 Status: Ordered Breo Ellipta 100 mcg-25 mcg/inh inhalation powder 1 puffs, Inhalation, Daily, # 30 each, 0 Refills, Maintenance, 07/07/20 15:59:00 EDT, Powder, Partial fill upon patient request if the prescription is for a schedule II opioid drug. Start Date: 07/07/20 Status: Ordered carvedilol 12.5 mg oral tablet 12.5 mg, 1, tablet, By Mouth, 2 times a day, # 60 tablet, Refills 11, Tot. Refills 11, Maintenance,12/31/20 16:52:00 EDT, Route to Pharmacy Electronically, [facility] [id number], Partial fill upon patient request if the prescription is for a schedule... Start Date: 12/31/20 Stop Date: 12/26/21 Status: Ordered dapagliflozin 5 mg oral tablet 1 tablet = 5 mg, By Mouth, Daily, # 90 tablet, 0 Refills, Maintenance, 10/27/20 11:53:00 EDT, Tablet, [facility] 3, Partial fill upon patient request if the prescription is for a scheduleII opioid drug., 163, cm, 10/27/20 7:45:00 EDT, Hei... Start Date: 10/27/20 Status: Ordered digoxin 0.125 mg oral tablet 1, tablet, By Mouth, Every Monday and , # 90 tablet, Refills 2, Tot. Refills 2, Maintenance, 10/30/20 10:00:00 EDT, Route to Pharmacy Electronically, [facility] [id number], 163, cm, 10/29/20 7:52:00 EDT, Height, 93.5, kg, 10/22/20 17:16:00 EDT... Start Date: 10/30/20 Status: Ordered Docusate/Senna Tablet 1 tablet, By Mouth, 2 times a day, PRN Constipation, 0 Refills, Maintenance, 12/04/20 11:06:00 EDT,Tablet, Partial fill upon patient request if the prescription is for a schedule II opioid drug. Start Date: 12/04/20 Status: Ordered Dulcolax 10 mg rectal suppository 1 supp = 10 mg, Rectally, Daily, 0 Refills, Maintenance, 12/31/20 16:15:00 EDT, Partial fill upon patient request if the prescription is for a schedule II opioid drug. Start Date: 12/31/20 Status: Ordered Eliquis 5 mg oral tablet 1 tablet = 5 mg, By Mouth, 2 times a day, # 60 tablet, 0 Refills, Maintenance, 11/28/20 18:30:00 EDT, Tablet, Partial fill upon patient request if the prescription is for a schedule II opioid drug. Start Date: 11/28/20 Status: Ordered Entresto 49 mg-51 mg oral tablet 1 tablet, By Mouth, 2 times a day, # 60 tablet, 0 Refills, Maintenance, 02/08/21 11:59:00 EST, Tablet, Partial fill upon patient request if the prescription is for a schedule II opioid drug. Start Date: 02/08/21 Status: Ordered EpiPen 2-Dave 0.3 mg injectable kit = 0.3 mg, Intramuscular, Once, 0 Refills, Maintenance, 02/08/21 11:58:00 EST, Partial fill upon patient request if the prescription is for a schedule II opioid drug. Start Date: 02/08/21 Status: Ordered Fleet Enema 19 gm-7 gm rectal enema 1 each, Rectally, Once, # 118 mL, 0 Refills, Maintenance, 12/31/20 16:15:00 EDT, Enema, Partial fill upon patient request if the prescription is for a schedule II opioid drug. Start Date: 12/31/20 Status: Ordered folic acid 1 mg oral tablet 1 mg, 1, tablet, By Mouth, Daily, # 30 tablet, Refills 0, Maintenance, 11/14/18 21:19:12 EDT Start Date: 11/14/18 Status: Ordered folic acid 1 mg oral tablet 1 mg, 1, tablet, By Mouth, Daily, # 30 tablet, Refills 0, Maintenance, 02/08/21 11:59:00 EST, Partial fill upon patient request if the prescription is for a schedule II opioid drug. Start Date: 02/08/21 Status: Ordered Glucagon = 1 mg, Once, 0 Refills, Maintenance, 12/31/20 16:16:00 EDT, Partial fill upon patient request if the prescription is for a schedule II opioid drug. Start Date: 12/31/20 Status: Ordered glucose 40% oral gel = 15 Gm, By Mouth, Once, 0 Refills, Maintenance, 12/31/20 16:17:00 EDT, Partial fill upon patient request if the prescription is for a schedule II opioid drug. Start Date: 12/31/20 Status: Ordered Insulin Lispro 2-10 units, Subcutaneous Injection, 3 times a day before meals, << Sliding Scale Comments >> 150 - 199 2 units Call if less than 70 200 - 249 4 units 250 - 299 6 units 300 - 349 8 units 350 - 399 10 units Call if greater than 400 <<... Start Date: 12/04/20 Status: Ordered meclizine 25 mg oral tablet 1 tablet = 25 mg, By Mouth, 3 times a day, 0 Refills, Maintenance, 02/08/21 12:00:00 EST, Partial fill upon patient request if the prescription is for a schedule II opioid drug. Start Date: 02/08/21 Status: Ordered melatonin 3 mg oral tablet = 3 mg, By Mouth, Daily at bedtime, PRN Insomnia, 0 Refills, Maintenance, 12/04/20 11:06:00 EDT, Tablet, Partial fill upon patient request if the prescription is for a schedule II opioid drug. Start Date: 12/04/20 Status: Ordered methotrexate 2.5 mg oral tablet 6 tablet = 15 mg, By Mouth, Every Monday, # 4 tablet, 0 Refills, Maintenance, 11/14/18 21:17:23 EDT, Tablet Start Date: 11/14/18 Status: Ordered metolazone 2.5 mg oral tablet 2.5 mg, 1, tablet, By Mouth, Daily, Refills 0, Maintenance, 02/08/21 11:59:00 EST, Partial fill upon patient request if the prescription is for a schedule II opioid drug. Start Date: 02/08/21 Status: Ordered Milk of Magnesia 400mg/5mL, By Mouth, Daily at bedtime, 0 Refills, Maintenance, 12/31/20 16:16:00 EDT, Partial fill upon patient request if the prescription is for a schedule II opioid drug. Start Date: 12/31/20 Status: Ordered Multi Vitamin+ Daily, 0 Refills, Maintenance, 09/25/20 12:29:00 EDT, Partial fill upon patient request if the prescription is for a schedule II opioid drug. Start Date: 09/25/20 Status: Ordered nitroglycerin 0.4 mg sublingual tablet 1 tablet = 0.4 mg, Sublingual, Every 5 minutes, PRN for chest pain, # 25 tablet, 2 Refills, Maintenance, 04/24/20 11:22:00 EST, Tablet, [facility] 2174, 163, cm, 02/14/20 10:48:00 EST, Height, [...] opioid drug. Start Date: 06/12/20 Status: Ordered oxyCODONE 5 mg oral capsule 1 capsule = 5 mg, By Mouth, Every 6 hours, 0 Refills, Maintenance, 12/31/20 16:19:00 EDT, Partial fill upon patient request if the prescription is for a schedule II opioid drug. Start Date: 12/31/20 Status: Ordered Potassium Acetate = 10 mg, Daily, 0 Refills, Maintenance, 02/08/21 12:00:00 EST, Partial fill upon patient request ifthe prescription is for a schedule II opioid drug. Start Date: 02/08/21 Status: Ordered Preparation H = 1 %, Rectally, 0 Refills, Maintenance, 12/31/20 16:19:00 EDT, Partial fill upon patient request if the prescription is for a schedule II opioid drug. Start Date: 12/31/20 Status: Ordered Senna 8.6-50mg, By Mouth, 0 Refills, Maintenance, 12/31/20 16:18:00 EDT, Partial fill upon patient request if the prescription is for a schedule II opioid drug. Start Date: 12/31/20 Status: Ordered simvastatin 10 mg oral tablet 10 mg, 1, tablet, By Mouth, Daily, Refills 0, Maintenance, 10/22/20 18:04:00 EDT, Partial fill uponpatient request if the prescription is for a schedule II opioid drug. Start Date: 10/22/20 Status: Ordered Spiriva Respimat 1.25 mcg/inh inhalation aerosol 2 sprays, Inhalation, Daily, # 4 Gm, 11 Refills, Maintenance, 09/25/20 13:18:00 EDT, [facility] 2174, 163, cm, 09/25/20 12:08:00 EDT, Height, 101.6, kg, 08/24/20 19:11:00 EDT, Dry Weight Start Date: 09/25/20 Status: Ordered spironolactone 25 mg oral tablet 12.5 mg, 0.5, tablet, By Mouth, Daily, # 15 tablet, Refills 0, Maintenance, 02/08/21 12:00:00 EST, Partial fill upon patient request if the prescription is for a schedule II opioid drug. Start Date: 02/08/21 Status: Ordered Tessalon Perles 100 mg oral capsule 1 capsule = 100 mg, By Mouth, 3 times a day, PRN Cough, # 14 capsule, 0 Refills, Maintenance, 06/24/20 0:38:00 EDT, Capsule, [facility] 2174, Partial fill upon patient request if the prescription is for a schedule II opioid drug., 164, cm, 06/23... Start Date: 06/24/20 Status: Ordered torsemide 20 mg oral tablet 1 tablet = 20 mg, By Mouth, 2 times a day, 0 Refills, Maintenance, 02/08/21 12:01:00 EST, Partial fill upon patient request if the prescription is for a schedule II opioid drug. Start Date: 02/08/21 Status: Ordered traZODone 100 mg oral tablet TAKE 1 2 TO 1 (ONE HALF TO ONE) TABLET BY MOUTH ONCE DAILY AT BEDTIME NEEDED FOR 30 DAYS Start Date: 11/05/20 Status: Ordered Trulicity Pen 3 mg/0.5 mL subcutaneous solution = 3 mg, Subcutaneous Infusion, 0 Refills, Maintenance, 02/08/21 12:02:00 EST, Partial fill upon patient request if the prescription is for a schedule II opioid drug. Start Date: 02/08/21 Status: Ordered Tylenol Caplet = 650 mg, By Mouth, Every 4 hours, PRN as needed, 0 Refills, Maintenance, 09/25/20 12:29:00 EDT, Partial fill upon patient request if the prescription is for a schedule II opioid drug. Start Date: 09/25/20 Status: Ordered Ventolin HFA 108 mcg/inh inhalation aerosol with adapter 2 puffs, Inhalation, 4 times a day, # 18 Gm, 11 Refills, Maintenance, 06/25/20 14:10:00 EDT, [facility] 2174, 164, cm, 06/24/20 0:51:00 EDT, Height, 101.5, kg, 06/24/20 0:51:00 EDT, Dry Weight Start Date: 06/25/20 Stop Date: 07/25/20 Status: Ordered Zanaflex 4 mg oral tablet 4 mg, 1, tablet, By Mouth, 3 times a day, PRN, # 9 tablet, Refills 0, Tot. Refills 0, Maintenance, Spasm, 12/04/20 11:07:00 EDT, Print Requisition, Partial fill upon patient request if the prescription is for a schedule II opioid drug. 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 Left bundle branch block(Confirmed) Active Mild asthma(Confirmed) Active Obese class I(Confirmed) Active Primary cardiomyopathy(Confirmed) Active Phlebitis and thrombophlebit is of superficial veins of upper extremities(Confirmed) Active Vital Signs Most recent to oldest [Reference Range]: 1 Height 163 cm (03/04/21 2:23 PM) Weight 83.46 kg (03/04/21 2:23 PM) Body Mass Index [18.5-24.99] 31.41 *>HHI* (03/04/21 2:23 PM) Blood Pressure [90-138/55-84 mm Hg] 132/ 70mm Hg (03/04/21 2:23 PM) Blood pressure sites Arm, left (03/04/21 2:23 PM) Weight Obtained Via Patient/family state d (03/04/21 2:23 PM) Social History Social History Type Response Smoking Status Never (less than 100 in lifetime) entered on: 09/19/19 Sex
--- OUTSIDE RECORDS SUMMARY | 2023-03-22 10:38 | XMS_ITS | Continuity of Care Document ---
Author Name Unknown Organization [facility] Address [address] [place] [address]- Care Team Providers Care Watch Crystal Molder Name Role Phone Tenisha Lraa MD Primary Care Physician [phone] Encounter [facility] [place] Date(s): 01/07/22 - 01/14/22 [facility] [address] [place] [address]- Attending Physician: Eleazar Yung MD Admitting Physician: Eleazar Yung MD Referring Physician: Tenisha Lara MD Allergies, Adverse Reactions, Alerts Substance Reaction Severity Status codeine headache Active penicillins 1 Active Arava Active Zestril cough Active Augmentin Active Bee Stings Active 1Tolerates cefepime Medications albuterol CFC free 90 mcg/inh inhalation aerosol 2, puffs, Inhalation, 4 times a day, PRN, # 18 Gm, Refills 11, Tot. Refills 11, Maintenance, 01/12/22 12:09:00 EDT, Aerosol, Route to Pharmacy Electronically, [id number], [facility] 2[facility], 163, cm, 01/12/22 10:50:00 EDT,... Start Date: 01/12/22 Stop Date: 01/07/23 Status: Ordered amiodarone 200 mg oral tablet 200 mg, 1, tablet, By Mouth, Daily, # 30 tablet, Refills 5, Tot. Refills 5, Maintenance, 08/20/21 10:22:00 EDT, Route to Pharmacy Electronically, [facility] [id number], Partial fill upon patient request if the prescription is for a schedule II opioid... Start Date: 08/20/21 Status: Ordered amLODIPine 10 mg oral tablet 10 mg, 1, tablet, By Mouth, Daily, # 90 tablet, Refills 11, Tot. Refills 11, Maintenance, 07/13/21 11:13:00 EDT, Route to Pharmacy Electronically, [facility] 2174, Partial fill upon patient request if the prescription is for a schedule II opioid... Start Date: 07/13/21 Status: Ordered Breo Ellipta 100 mcg-25 mcg/inh inhalation powder 1 puffs, Inhalation, Daily, # 1 each, 11 Refills, Maintenance, 01/12/22 12:08:00 EDT, Inhaler, [facility] 2174, Partial fill upon patient request if the prescription is for a schedule II opioiddrug., 1 puffs Inhalation Daily,x30 days, 163, cm,... Start Date: 01/12/22 Stop Date: 01/07/23 Status: Ordered carvedilol 25 mg oral tablet 25 mg, 1, tablet, By Mouth, 2 times a day, # 180 tablet, Refills 11, Tot. Refills 11, Maintenance, 07/13/21 11:12:00 EDT, Route to Pharmacy Electronically, [facility] 2174, Dose increase, 163, cm, 07/13/21 10:43:00 EDT, Height, 93.5, kg, ... Start Date: 07/13/21 Status: Ordered dapagliflozin 5 mg oral tablet 1 tablet = 5 mg, By Mouth, Daily, # 30 tablet, 11 Refills, Maintenance, 12/15/21 12:12:00 EDT, Tablet, [facility] 2174, this is a dose decrease, [...] 11 Refills, Maintenance, 10/25/21 15:10:00 EDT, Tablet, [facility] 2174, Partial fill upon patient request [...] 2 Refills, Maintenance, 04/24/20 11:22:00 EST, Tablet, [facility] 2174, 163, cm, 02/14/20 10:48:00 EST, [...] each, 11 Refills, Maintenance, 01/12/22 12:08:00 EDT, [facility] 2174, 163, cm, 01/12/22 10:50:00 EDT, Height, 87.3, kg, 08/12/21 7:07:00 EDT, Dry Weight Start Date: 01/12/22 Stop Date: 01/07/23 Status: Ordered spironolactone 25 mg oral tablet 25 mg, 1, tablet, By Mouth, Daily, # 90 tablet, Refills 11, Tot. Refills 11, Maintenance, 10/25/21 15:11:00 EDT, Route to Pharmacy Electronically, [facility] 2174, Dose increase, 163, cm, 10/25/21 14:46:00 EDT, Height, 87.3, kg, 08/12/21 7:07:00... Start Date: 10/25/21 Status: Ordered torsemide 20 mg oral tablet 1 tablet = 20 mg, By Mouth, Daily, # 90 tablet, 11 Refills, Maintenance, 07/13/21 11:14:00 EDT, Tablet, [facility] 2174, Partial fill upon patient request [...] Personnel Name: Tenisha Lara MD Address: Address: [address] [place] [phone]-
--- OUTSIDE RECORDS SUMMARY | 2023-03-22 10:39 | XMS_ITS | Continuity of Care Document ---
Author Name Unknown Organization [facility] Address [address] [place] [address]- Care Team Providers Care Chief Psychology Name Role Phone Jane ECHEVERRIA, Tenisha Primary Care Physician [phone] Encounter 06/30/20 - 08/28/20 [facility] [address] [place] [id number]- Discharge Disposition: CLIENT NO LONGER REQUIRES SKILLED CARE Allergies, Adverse Reactions, Alerts Substance Reaction Severity Status codeine headache Active penicillins 1 Active Arava Active Zestril cough Active 1Tolerates cefepime Medications acetaminophen 325 mg oral tablet 650 mg, 2, tablet, By Mouth, Every 6 hours, PRN, for 5 days, not to exceed 4000 mg/day As needed for pain or fever, # 24 tablet, Refills 0, Tot. Refills 0, Acute 08/29/20 17:49:00 EDT, Pain , Mild, 08/24/20 17:49:00 EDT, Route to Pharmacy Electronic[facility]... Start Date: 08/24/20 Stop Date: 08/29/20 Status: Ordered albuterol-ipratropium 3 mg-0.5 mg/3 ml inhalation solution 3 mL, Inhalation, 4 times a day, # 30 each, 0 Refills, Maintenance, 05/21/19 9:59:00 EST, Solution Start Date: 05/21/19 Status: Ordered Basic Metabolic Panel and digoxin level on 07/03/2020. Please fax results to Primary care: Tenisha Marc Basic Metabolic Panel and digoxin level on 07/03/2020. Please fax results to Primary care: Tenisha Lara MD, See Instructions, # 1 each, Refills 0, Tot. Refills 0, Maintenance, Basic Metabolic Panel, PT(INR) and digoxin level on 07/03/2020. Please fax res... Start Date: 06/29/20 Status: Ordered Breo Ellipta 100 mcg-25 mcg/inh inhalation powder 1 puffs, Inhalation, Daily, # 30 each, 0 Refills, Maintenance, 07/07/20 15:59:00 EDT, Powder, Partial fill upon patient request if the prescription is for a schedule II opioid drug. Start Date: 07/07/20 Status: Ordered carvedilol 25 mg oral tablet 1, tablet, By Mouth, 2 times a day, # 180 tablet, Refills 3, Tot. Refills 3, Maintenance, 06/09/20 11:25:00 EST, Route to Pharmacy Electronically, [facility] 2174, 163, cm, 02/14/20 10:48:00 EST, Height, 99, kg, 09/19/19 18:05:00 EDT, Dry Weight Start Date: 06/09/20 Stop Date: 06/04/21 Status: Ordered digoxin 0.125 mg oral tablet 0.125 mg, 1, tablet, By Mouth, Daily, # 30 tablet, Refills 2, Tot. Refills 2, Maintenance, 07/23/2114:03:00 EDT, Route to Pharmacy Electronically, [facility] 2174, Partial fill upon patient request if the prescription is for a schedule II opioi... Start Date: 07/23/20 Stop Date: 10/21/20 Status: Ordered Eliquis 5 mg oral tablet 1 tablet, By Mouth, 2 times a day, # 60 tablet, 5 Refills, Maintenance, 08/10/20 8:26:00 EDT, [facility] 2174, 160, cm, 08/03/20 12:06:00 EDT, Height, 104.5, kg, 08/03/20 12:06:00 EDT, Dry Weight Start Date: 08/10/20 Status: Ordered Entresto 49 mg-51 mg oral tablet 1 tablet, By Mouth, 2 times a day, # 180 tablet, 3 Refills, Maintenance, 12/06/19 9:20:00 EDT, Tablet, [facility] 2174, 1 tablet By Mouth 2 times a day, 163, cm, 10/14/19 13:52:00 EDT, Height, 99, kg, 09/19/19 18:05:00 EDT, Dry Weight Start Date: 12/06/19 Status: Ordered folic acid 1 mg oral tablet 1 mg, 1, tablet, By Mouth, Daily, # 30 tablet, Refills 0, Maintenance, 11/14/18 21:19:12 EDT Start Date: 11/14/18 Status: Ordered furosemide 20 mg oral tablet 80 mg, 4, tablet, By Mouth, 2 times a day, Refills 0, Maintenance, 03/06/18 14:21:00 EST Start Date: 03/06/18 Status: Ordered Imdur 60 mg oral tablet, extended release 1 tablet = 60 mg, By Mouth, Daily in AM, # 90 tablet, 3 Refills, Maintenance, 09/19/15 11:57:02, 1 tablet By Mouth Daily in AM,x90 days Start Date: 09/19/15 Stop Date: 09/13/16 Status: Ordered insulin isophane human recombinant 100 u/ml subcutaneous injection = 30 units, Subcutaneous Injection, Daily, 30 units daily in the am 25 units at bedtime, 0 Refills,Maintenance, 12/01/17 13:40:05 EDT, Injection Start Date: 12/01/17 Status: Ordered methotrexate 2.5 mg oral tablet 6 tablet = 15 mg, By Mouth, Every Monday, # 4 tablet, 0 Refills, Maintenance, 11/14/18 21:17:23 EDT, Tablet Start Date: 11/14/18 Status: Ordered nitroglycerin 0.4 mg sublingual tablet 1 tablet = 0.4 mg, Sublingual, Every 5 minutes, PRN for chest pain, # 25 tablet, 2 Refills, Maintenance, 04/24/20 11:22:00 EST, Tablet, [facility] 2174, 163, cm, 02/14/20 10:48:00 EST, Height, 99, kg, 09/19/19 18:05:00 EDT, Dry Weight Start Date: 04/24/20 Status: Ordered omeprazole 20 mg oral delayed release tablet 1 tablet = 20 mg, By Mouth, Daily, # 90 tablet, 0 Refills, Maintenance, 06/12/20 12:27:00 EST, CR Tablet, Partial fill upon patient request if the prescription is for a schedule II opioid drug. Start Date: 06/12/20 Status: Ordered phenylephrine 1% nasal spray 2 sprays, Nares, Both, Every 4 hours, PRN for nasal congestion, # 15 mL, 0 Refills, Maintenance, 06/26/20 22:05:00 EDT, Roy, Partial fill upon patient request if the prescription is for a schedule II opioid drug. Start Date: 06/26/20 Status: Ordered simvastatin 20 mg oral tablet 20 mg, 1, tablet, By Mouth, Daily at bedtime, # 90 tablet, Refills 0, Maintenance, 05/21/19 9:15:00EST Start Date: 05/21/19 Status: Ordered Spiriva Respimat 1.25 mcg/inh inhalation aerosol 2 sprays, Inhalation, Daily, # 4 Gm, 0 Refills, Maintenance, 04/13/20 16:46:00 EST, [facility] 2174, 163, cm, 02/14/20 10:48:00 EST, Height, 99, kg, 09/19/19 18:05:00 EDT, Dry Weight Start Date: 04/13/20 Stop Date: 05/13/20 Status: Ordered Tessalon Perles 100 mg oral capsule 1 capsule = 100 mg, By Mouth, 3 times a day, PRN Cough, # 14 capsule, 0 Refills, Maintenance, 06/24/20 0:38:00 EDT, Capsule, [facility] 2174, Partial fill upon patient request if the prescription is for a schedule II opioid drug., 164, cm, 06/23... 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
--- OUTSIDE RECORDS SUMMARY | 2023-03-22 10:39 | XMS_ITS | Continuity of Care Document ---
Author Name Unknown Organization [facility] Address [address] [place] [address]- Care Team Providers Care Guest Services Lead Name Role Phone Tenisha Lara MD Primary Care Physician Encounter [facility] Date(s): 04/20/22 - 08/18/22 [facility] [address] [place] [address]- Attending Physician: Eleazar Yung MD Admitting Physician: Eleazar Yung MD Referring Physician: Eleazar Yung MD Allergies, Adverse Reactions, Alerts Substance Reaction Severity Status codeine headache Active penicillins 1 Active Arava Active Zestril cough Active Augmentin Active Bee Stings Active 1Tolerates cefepime Medications albuterol CFC free 90 mcg/inh inhalation aerosol 2, puffs, Inhalation, 4 times a day, PRN, # 18 Gm, Refills 11, Tot. Refills 11, Maintenance, 01/12/22 12:09:00 EDT, Aerosol, Route to Pharmacy Electronically, [id number], [facility], 163, cm, 01/12/22 10:50:00 EDT,... Start Date: 01/12/22 Stop Date: 01/07/23 Status: Ordered amiodarone 200 mg oral tablet 200 mg, 1, tablet, By Mouth, Daily, # 90 tablet, Refills 2, Tot. Refills 2, Maintenance, 05/02/22 14:32:00 EST, Route to Pharmacy Electronically, [facility], 163, cm, 03/21/22 12:14:00 EST, Height, 87.3, kg, 08/12/21 7:07:00 EDT, Dry Weight Start Date: 05/02/22 Stop Date: 01/27/23 Status: Ordered amLODIPine 10 mg oral tablet 10 mg, 1, tablet, By Mouth, Daily, # 90 tablet, Refills 11, Tot. Refills 11, Maintenance, 07/13/21 11:13:00 EDT, Route to Pharmacy Electronically, [facility], Partial fill upon patient request if the prescription is for a schedule II opioid... Start Date: 07/13/21 Status: Ordered Breo Ellipta 100 mcg-25 mcg/inh inhalation powder 1 puffs, Inhalation, Daily, # 1 each, 11 Refills, Maintenance, 01/12/22 12:08:00 EDT, Inhaler, [facility], Partial fill upon [...] 07/01/22 11:12:00 EDT, Route to Pharmacy Electronically, [facility], Dose increase, 163, cm, 03/21/22 12:14:00 EST, Height, 87.3, kg, ... Start Date: 07/01/22 Stop Date: 06/15/25 Status: Ordered dapagliflozin 10 mg oral tablet 1 tablet = 10 mg, By Mouth, Daily, # 90 tablet, 11 Refills, Maintenance, 03/21/22 13:01:00 EST, Tablet, [facility], Dose increase, 163, [...] 11 Refills, Maintenance, 10/25/21 15:10:00 EDT, Tablet, [facility], Partial fill upon [...] 2 Refills, Maintenance, 04/24/20 11:22:00 EST, Tablet, [facility], 163, cm, 02/14/20 [...] each, 11 Refills, Maintenance, 01/12/22 12:08:00 EDT, [facility], 163, cm, 01/12/22 10:50:00 EDT, Height, 87.3, kg, 08/12/21 7:07:00 EDT, Dry Weight Start Date: 01/12/22 Stop Date: 01/07/23 Status: Ordered spironolactone 50 mg oral tablet 1 tablet = 50 mg, By Mouth, Daily, dose increase, # 90 tablet, 3 Refills, Maintenance, 05/05/22 11:55:00 EST, [facility], 163, cm, 03/21/22 12:14:00 EST, Height, 87.3, kg, 08/12/21 7:07:00EDT, Dry Weight Start Date: 05/05/22 Stop Date: 04/30/23 Status: Ordered torsemide 20 mg oral tablet 1 tablet = 20 mg, By Mouth, Daily, # 90 tablet, 11 Refills, Maintenance, 07/13/21 11:14:00 EDT, Tablet, [facility], Partial fill upon [...] Team Personnel Name: Aura Fox RN Position: [facility] ED RN W/OE and Tasks Member Role: Primary Care Nurse Name: Tenisha Lara MD Position: [facility] General Pediatrics MD Member Role: PCP Address: Address: [address] [place] [id number]- Name: Bettina Moran RN Position: [facility] RN Member Role: Primary Care Nurse Name: Britany Fuentes RN Position: [facility] ED RN W/OE and Tasks Member Role: Primary Care Nurse Name: Jenaro Evans MD Position: [facility] Cardiology MD Member Role: Lifetime Consulting Physician Address: Address: [address] [place] [address] [place] [address]- Name: Sandra Dubois RN Position: S RN Member Role: Primary Care Nurse Name: Taylor Lopes RN Position: S RN Member Role: Primary Care Nurse Name: Haresh Deal RN Position: [facility] SN RN Member Role: Primary Care Nurse Name: Taina Lambert RN Position: S RN Member Role: Primary Care Nurse Name: Teri Azevedo RN Position: [facility] SN RN Member Role: Primary Care Nurse Name: Zoie Abdalla RN Position: S RN Member Role: Primary Care Nurse Care Team Related Persons Name: BESSIE ORTIZ Address: [address] [place] [address] Name: SAMANTHA KHAN Address: home [address] [place] [address] Name: CARMEN WORTHY
--- OUTSIDE RECORDS SUMMARY | 2023-03-22 10:39 | XMS_ITS | Continuity of Care Document ---
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 Refills 11, Maintenance, 01/12/22 12:09:00 EDT, Aerosol, Route to Pharmacy Electronically, [id number], [facility], 163, cm, 01/12/22 10:50:00 EDT,... Start Date: 01/12/22 Stop Date: 01/07/23 Status: Ordered amiodarone 200 mg oral tablet 200 mg, 1, tablet, By Mouth, Daily, # 30 tablet, Refills 1, Tot. Refills 1, Maintenance, 02/21/22 12:41:00 EST, Route to Pharmacy Electronically, [facility], Partial fill upon patient request if the prescription is for a schedule II opioid... Start Date: 02/21/22 Stop Date: 04/22/22 Status: Ordered amLODIPine 10 mg oral tablet 10 mg, 1, tablet, By Mouth, Daily, # 90 tablet, Refills 11, Tot. Refills 11, Maintenance, 07/13/21 11:13:00 EDT, Route to Pharmacy Electronically, [facility], Partial fill upon patient request if the prescription is for a schedule II opioid... Start Date: 07/13/21 Status: Ordered Breo Ellipta 100 mcg-25 mcg/inh inhalation powder 1 puffs, Inhalation, Daily, # 1 each, 11 Refills, Maintenance, 01/12/22 12:08:00 EDT, Inhaler, [facility], Partial fill upon patient request if the prescription is for a schedule II opioiddrug., 1 puffs Inhalation Daily,x30 days, 163, cm,... Start Date: 01/12/22 Stop Date: 01/07/23 Status: Ordered carvedilol 25 mg oral tablet 25 mg, 1, tablet, By Mouth, 2 times a day, # 180 tablet, Refills 11, Tot. Refills 11, Maintenance, 07/13/21 11:12:00 EDT, Route to Pharmacy Electronically, [facility], Dose increase, 163, cm, 07/13/21 10:43:00 EDT, Height, 93.5, kg, 2... Start Date: 07/13/21 Status: Ordered dapagliflozin 10 mg oral tablet 1 tablet = 10 mg, By Mouth, Daily, # 90 tablet, 11 Refills, Maintenance, 03/21/22 13:01:00 EST, Tablet, [facility], Dose increase, 163, cm, [...] 11 Refills, Maintenance, 10/25/21 15:10:00 EDT, Tablet, [facility], Partial fill upon patient [...] 2 Refills, Maintenance, 04/24/20 11:22:00 EST, Tablet, [facility], 163, cm, 02/14/20 10:48:00 [...] each, 11 Refills, Maintenance, 01/12/22 12:08:00 EDT, [facility], 163, cm, 01/12/22 10:50:00 EDT, Height, 87.3, kg, 08/12/21 7:07:00 EDT, Dry Weight Start Date: 01/12/22 Stop Date: 01/07/23 Status: Ordered spironolactone 50 mg oral tablet 1 tablet = 50 mg, By Mouth, Daily, dose increase, # 30 tablet, 3 Refills, Maintenance, 04/01/22 12:09:00 EST, [facility], 163, cm, 03/21/22 12:14:00 EST, Height, 87.3, kg, 08/12/21 7:07:00EDT, Dry Weight Start Date: 04/01/22 Stop Date: 07/30/22 Status: Ordered torsemide 20 mg oral tablet 1 tablet = 20 mg, By Mouth, Daily, # 90 tablet, 11 Refills, Maintenance, 07/13/21 11:14:00 EDT, Tablet, [facility], Partial fill upon patient [...] Team Personnel Name: Aura Fox RN Position: [facility] ED RN W/OE and Tasks Member Role: Primary Care Nurse Name: Opal Gonzalez RN Position: S RN Member Role: Primary Care Nurse Name: Tenisha Lara MD Position: [facility] General Pediatrics MD Member Role: PCP Address: Address: [address] [place] [address]- Name: Bettina Moran RN Position: [facility] RN Member Role: Primary Care Nurse Name: Britany Fuentes RN Position: [facility] ED RN W/OE and Tasks Member Role: Primary Care Nurse Name: Jenaro Evans MD Position: [facility] Cardiology MD Member Role: Lifetime Consulting Physician Address: Address: [address] [place] [address] [place] [place] [address]- Name: Sandra Dubois RN Position: [facility] RN Member Role: Primary Care Nurse Name: Taylor Lopes RN Position: S RN Member Role: Primary Care Nurse Name: Haresh Deal RN Position: S RN Member Role: Primary Care Nurse Name: Taina Lambert RN Position: S RN Member Role: Primary Care Nurse Name: Teri Azevedo RN Position: [facility] SN RN Member Role: Primary Care Nurse Name: Zoie Abdalla RN Position: S RN Member Role: Primary Care Nurse Care Team Related Persons Name: BESSIE ORTIZ Address: home [address] [place] [address] Name: SAMANTHA KHAN Address: home [address] [place] [address] Name: CARMEN WORTHY
--- OUTSIDE RECORDS SUMMARY | 2023-03-22 10:39 | XMS_ITS | Continuity of Care Document ---
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 Refills 5, Maintenance, 08/20/21 10:22:00 EDT, Route to Pharmacy Electronically, [facility], Partial fill upon patient request if the prescription is for a schedule II opioid... Start Date: 08/20/21 Status: Ordered amLODIPine 10 mg oral tablet 10 mg, 1, tablet, By Mouth, Daily, # 90 tablet, Refills 11, Tot. Refills 11, Maintenance, 07/13/21 11:13:00 EDT, Route to Pharmacy Electronically, [facility], Partial fill upon patient [...] 07/13/21 11:12:00 EDT, Route to Pharmacy Electronically, [facility], Dose increase, 163, cm, 07/13/21 10:43:00 EDT, Height, 93.5, kg, 2... Start Date: 07/13/21 Status: Ordered dapagliflozin 5 mg oral tablet 1 tablet = 5 mg, By Mouth, Daily, # 90 tablet, 0 Refills, Maintenance, 10/27/20 11:53:00 EDT, Tablet, [facility], Partial fill upon patient request if the prescription is for a scheduleII opioid drug., 163, cm, 10/27/20 7:45:00 EDT, Hei... Start Date: 10/27/20 Status: Ordered DIURETIC INTERVENTION DIURETIC INTERVENTION, See [...] opioid drug. Start Date: 11/28/20 Status: Ordered EpiPen 2-Dave 0.3 mg injectable [...] 2 Refills, Maintenance, 04/24/20 11:22:00 EST, Tablet, [facility], 163, cm, 02/14/20 10:48:00 [...] Gm, 11 Refills, Maintenance, 09/25/20 13:18:00 EDT, [facility], 163, cm, 09/25/20 12:08:00 EDT, Height, 101.6, kg, 08/24/20 19:11:00 EDT, Dry Weight Start Date: 09/25/20 Status: Ordered spironolactone 25 mg oral tablet 12.5 mg, 0.5, tablet, By Mouth, Daily, # 15 tablet, Refills 11, Tot. Refills 11, Maintenance, 07/13/21 11:14:00 EDT, Route to Pharmacy Electronically, [facility], Partial fill upon patientrequest if the prescription is for a schedule II op... Start Date: 4/12/22 Status: Ordered torsemide 20 mg oral tablet 1 tablet = 20 mg, By Mouth, Daily, # 90 tablet, 11 Refills, Maintenance, 07/13/21 11:14:00 EDT, Tablet, [facility], Partial fill upon patient [...] Date: 09/25/20 Status: Ordered Problem List Condition Effective Dates [...]
--- OUTSIDE RECORDS SUMMARY | 2023-03-22 10:39 | XMS_ITS | Continuity of Care Document ---
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 Start Date: 11/19/20 Status: Ordered amLODIPine 5 mg oral tablet 5 mg, 1, tablet, By Mouth, Daily, # 90 tablet, Refills 1, Tot. Refills 1, Maintenance, 07/02/21 11:26:00 EDT, Route to Pharmacy Electronically, [facility], Partial fill upon patient request if the prescription is for a schedule II opioid drCammy Start Date: 07/02/21 Status: Ordered Breo Ellipta 100 mcg-25 mcg/inh inhalation powder 1 puffs, Inhalation, Daily, # 30 each, 0 Refills, Maintenance, 07/07/20 15:59:00 EDT, Powder, Partial fill upon patient request if the prescription is for a schedule II opioid drug. Start Date: 07/07/20 Status: Ordered carvedilol 12.5 mg oral tablet 25 mg, By Mouth, 2 times a day, # 30 tablet, Refills 11, Tot. Refills 11, Maintenance, 12/31/20 16:52:00 EDT, Route to Pharmacy Electronically, [facility], Partial fill upon patient request if the prescription is for a schedule II opioid dr... Start Date: 12/31/20 Stop Date: 12/26/21 Status: Ordered dapagliflozin 5 mg oral tablet 1 tablet = 5 mg, By Mouth, Daily, # 90 tablet, 0 Refills, Maintenance, 10/27/20 11:53:00 EDT, Tablet, [facility], Partial fill upon patient request if the prescription is for a scheduleII opioid drug., 163, cm, 10/27/20 7:45:00 EDT, Hei... Start Date: 10/27/20 Status: Ordered digoxin 0.125 mg oral tablet 1, tablet, By Mouth, Every Monday and , # 90 tablet, Refills 2, Tot. Refills 2, Maintenance, 10/30/20 10:00:00 EDT, Route to Pharmacy Electronically, [facility], 163, cm, 10/29/20 7:52:00 EDT, Height, 93.5, kg, 10/22/20 17:16:00 EDT... Start Date: 10/30/20 Status: Ordered Eliquis 5 mg oral tablet 1 tablet = 5 mg, By Mouth, 2 times a day, # 60 tablet, 0 Refills, Maintenance, 11/28/20 18:30:00 EDT, Tablet, Partial fill upon patient request if the prescription is for a schedule II opioid drug. Start Date: 11/28/20 Status: Ordered Entresto 97 mg-103 mg oral tablet 1 tablet, By Mouth, 2 times a day, dose increase, # 60 tablet, 5 Refills, Maintenance, 05/17/21 7:35:00 EST, [facility], 1 tablet By Mouth 2 times a day,x30 days,Instr:dose increase, 163, cm, 04/09/21 15:22:00 EST, Height, 93.5, kg, ... Start Date: 05/17/21 Stop Date: 11/13/21 Status: Ordered EpiPen 2-Dave 0.3 mg injectable kit = 0.3 mg, Intramuscular, Once, 0 Refills, Maintenance, 02/08/21 11:58:00 EST, Partial fill upon patient request if the prescription is for a schedule II opioid drug. Start Date: 02/08/21 Status: Ordered folic acid 1 mg oral [...] opioid drug. Start Date: 02/08/21 Status: Ordered Multi Vitamin+ Daily, 0 Refills, Maintenance, 09/25/20 12:29:00 EDT, Partial fill upon patient request if the prescription is for a schedule II opioid drug. Start Date: 09/25/20 Status: Ordered nitroglycerin 0.4 mg sublingual tablet 1 tablet = 0.4 mg, Sublingual, Every 5 minutes, PRN for chest pain, # 25 tablet, 2 Refills, Maintenance, 04/24/20 11:22:00 EST, Tablet, [facility], 163, cm, 02/14/20 10:48:00 [...] opioid drug. Start Date: 02/08/21 Status: Ordered simvastatin 10 mg oral tablet 10 mg, 1, tablet, By Mouth, Daily, Refills 0, Maintenance, 10/22/20 18:04:00 EDT, Partial fill uponpatient request if the prescription is for a schedule II opioid drug. Start Date: 10/22/20 Status: Ordered Spiriva Respimat 1.25 mcg/inh inhalation aerosol 2 sprays, Inhalation, Daily, # 4 Gm, 11 Refills, Maintenance, 09/25/20 13:18:00 EDT, [facility], 163, cm, 09/25/20 12:08:00 EDT, [...] 0 Refills, Maintenance, 06/24/20 0:38:00 EDT, Capsule, [facility], Partial fill upon patient [...] Gm, 11 Refills, Maintenance, 06/25/20 14:10:00 EDT, [facility], 164, cm, 06/24/20 0:51:00 [...]
--- OUTSIDE RECORDS SUMMARY | 2023-03-22 10:39 | XMS_ITS | Continuity of Care Document ---
Author Name Unknown Organization [facility] Address [address] [place] [id number]- Care Team Providers Care Director Marketing Communications Name Role Phone Tenisha Lara MD Primary Care Physician [place] [facility] [id number] Date(s): 03/04/21 - 06/13/21 [facility] [address] [place] [address]- Attending Physician: Eleazar Yung MD Admitting Physician: [...] 11/19/20 11:15:00 EDT, Route to Pharmacy Electronically, [facility], Partial fill upon patient request if the [...] Maintenance,12/31/20 16:52:00 EDT, Route to Pharmacy Electronically, [facility], Partial fill upon patient request if the prescription is for a schedule... Start Date: 12/31/20 Stop Date: 12/26/21 Status: Ordered dapagliflozin 5 mg oral tablet 1 tablet = 5 mg, By Mouth, Daily, # 90 tablet, 0 Refills, Maintenance, 10/27/20 11:53:00 EDT, Tablet, [facility], Partial fill upon patient request if the prescription is for a scheduleII opioid drug., 163, cm, 10/27/20 7:45:00 EDT, Hei... Start Date: 10/27/20 Status: Ordered digoxin 0.125 mg oral tablet 1, tablet, By Mouth, Every Monday and , # 90 tablet, Refills 2, Tot. Refills 2, Maintenance, 10/30/20 10:00:00 EDT, Route to Pharmacy Electronically, [facility], 163, cm, 10/29/20 7:52:00 [...] tablet, 5 Refills, Maintenance, 05/17/21 7:35:00 EST, [facility], 1 tablet By Mouth 2 times a day,x30 days,Instr:dose increase, 163, cm, 04/09/21 15:22:00 EST, Height, 93.5, kg, 2... Start Date: 05/17/21 Stop Date: 11/13/21 Status: [...] 2 Refills, Maintenance, 04/24/20 11:22:00 EST, Tablet, [facility], 163, cm, 02/14/20 10:48:00 [...] Gm, 11 Refills, Maintenance, 09/25/20 13:18:00 EDT, [facility], 163, cm, 09/25/20 12:08:00 [...] 0 Refills, Maintenance, 06/24/20 0:38:00 EDT, Capsule, [facility], Partial fill upon patient [...] Gm, 11 Refills, Maintenance, 06/25/20 14:10:00 EDT, [facility], 164, cm, 06/24/20 0:51:00 [...]
--- OUTSIDE RECORDS SUMMARY | 2023-03-22 10:39 | XMS_ITS | Continuity of Care Document ---
Author Name Unknown Organization [facility] ter Address [address] [place] [phone]- Care Team Providers Care Alcoholism Worker Name Role Phone Tenisha Lara MD Primary Care Physician Encounter [facility] [place] Date(s): 10/22/20 - 10/29/[address] [address]- Encounter Diagnosis Acute exacerbation of congestive heart failure(Final) - 10/22/20 Discharge Disposition: A-D/C Home Attending Physician: Mikael Watts DO Admitting Physician: Kajal Espinosa MD Referring Physician: Not on Staff, Referring MD Allergies, Adverse Reactions, Alerts Substance Reaction Severity Status codeine headache Active penicillins 1 Active Zestril cough Active Arava Active 1Tolerates cefepime Medications albuterol-ipratropium 3 mg-0.5 mg/3 ml inhalation solution 3 mL, Inhalation, 4 times a day, PRN As needed, # 30 each, 0 Refills, Maintenance, 05/21/19 9:59:00EST, Solution Start Date: 05/21/19 Status: Ordered amiodarone 200 mg oral tablet See Instructions, 2 tablet By Mouth 2 times a day until 11/06, then 1 tablet daily thereafter, # 54 tablet, Refills 0, Tot. Refills 0, Maintenance, 10/29/20 11:13:00 EDT, Instructions Replace Required Details, Route to Pharmacy [facility]ically, [facility] Start Date: 10/29/20 Status: Ordered Breo Ellipta 100 mcg-25 mcg/inh [...] 06/09/20 11:25:00 EST, Route to Pharmacy Electronically, [facility], 163, cm, 02/14/20 10:48:00 EST, Height, 99, kg, 09/19/19 18:05:00 EDT, Dry Weight Start Date: 06/09/20 Stop Date: 06/04/21 Status: Ordered carvedilol 25 mg oral tablet 25 mg, Tablet, By Mouth, 10/29/20 9:00:00 EDT Start Date: 10/29/20 Stop Date: 10/29/20 Status: Completed dapagliflozin 5 mg oral tablet 1 tablet = 5 mg, By Mouth, Daily, # 90 tablet, 0 Refills, Maintenance, 10/27/20 11:53:00 EDT, Tablet, [facility], Partial fill upon patient request if the prescription is for a scheduleII opioid drug., 163, cm, 10/27/20 7:45:00 EDT, Hei... Start Date: 10/27/20 Status: Ordered digoxin 0.125 mg oral tablet 0.125 mg, 1, tablet, By Mouth, Daily, # 30 tablet, Refills 2, Tot. Refills 2, Maintenance, 07/23/2114:03:00 EDT, Route to Pharmacy Electronically, [facility], Partial fill upon patient request if the prescription is for a schedule II opioi... Start Date: 07/23/20 Stop Date: 10/21/20 Status: Ordered Eliquis 5 mg oral tablet 1 tablet, By Mouth, 2 times a day, # 60 tablet, 5 Refills, Maintenance, 08/10/20 8:26:00 EDT, [facility], 160, cm, 08/03/20 12:06:00 EDT, Height, 104.5, kg, 08/03/20 12:06:00 EDT, Dry Weight Start Date: 08/10/20 Status: Ordered Entresto 49 mg-51 mg oral tablet 1 tablet, By Mouth, 2 times a day, # 180 tablet, 3 Refills, Maintenance, 12/06/19 9:20:00 EDT, Tablet, [facility], 1 tablet By Mouth 2 times a day, 163, cm, 10/14/19 13:52:00 EDT, Height, 99, kg, 09/19/19 18:05:00 EDT, Dry Weight Start Date: 12/06/19 Status: Ordered folic acid 1 mg oral tablet 1 mg, 1, tablet, By Mouth, Daily, # 30 tablet, Refills 0, Maintenance, 11/14/18 21:19:12 EDT Start Date: 11/14/18 Status: Ordered Imdur 60 mg oral tablet, extended release 1 tablet = 60 mg, By Mouth, Daily in AM, # 90 tablet, 3 Refills, Maintenance, 09/19/15 11:57:02, 1 tablet By Mouth Daily in AM,x90 days Start Date: 09/19/15 Stop Date: 09/13/16 Status: Ordered methotrexate 2.5 mg oral tablet 6 tablet = 15 mg, By Mouth, Every Monday, # 4 tablet, 0 Refills, Maintenance, 11/14/18 21:17:23 EDT, Tablet Start Date: 11/14/18 Status: Ordered metolazone 2.5 mg oral tablet 2.5 mg, 1, tablet, By Mouth, Every other day, # 45 tablet, Refills 3, Tot. Refills 3, Maintenance, 09/25/20 12:58:00 EDT, Route to Pharmacy Electronically, [facility], Partial fill upon patient request if the prescription is for a schedule... Start Date: 09/25/20 Status: Ordered Multi Vitamin+ Daily, 0 Refills, Maintenance, 09/25/20 12:29:00 EDT, Partial fill upon patient request if the prescription is for a schedule II opioid drug. Start Date: 09/25/20 Status: Ordered nitroglycerin 0.4 mg sublingual tablet 1 tablet = 0.4 mg, Sublingual, Every 5 minutes, PRN for chest pain, # 25 tablet, 2 Refills, Maintenance, 04/24/20 11:22:00 EST, Tablet, [facility], 163, cm, 02/14/20 10:48:00 EST, Height, 99, kg, 09/19/19 18:05:00 EDT, Dry Weight Start Date: 04/24/20 Status: Ordered Novolin N human recombinant 100 u/ml subcutaneous injection = 30 units, Subcutaneous Injection, 2 times a day, 0 Refills, Maintenance, 10/22/20 18:01:00 EDT, Partial fill upon patient request if the prescription is for a schedule II opioid drug. Start Date: 10/22/20 Status: Ordered omeprazole 20 mg oral delayed [...] Gm, 11 Refills, Maintenance, 09/25/20 13:18:00 EDT, [facility], 163, cm, 09/25/20 12:08:00 EDT, Height, 101.6, kg, 08/24/20 19:11:00 EDT, Dry Weight Start Date: 09/25/20 Status: Ordered spironolactone 25 mg oral tablet 12.5 mg, 0.5, tablet, By Mouth, Daily, # 15 tablet, Refills 0, Tot. Refills 0, Maintenance, 10/29/20 11:16:00 EDT, Route to Pharmacy Electronically, [facility], Partial fill upon patient request if the prescription is for a schedule II o... Start Date: 10/29/20 Status: Ordered Tessalon Perles 100 mg oral capsule 1 capsule = 100 mg, By Mouth, 3 times a day, PRN Cough, # 14 capsule, 0 Refills, Maintenance, 06/24/20 0:38:00 EDT, Capsule, [facility], Partial fill upon patient request if the prescription is for a schedule II opioid drug., 164, cm, 06/23... Start Date: 06/24/20 Status: Ordered torsemide 20 mg oral tablet 2 tablet = 40 mg, By Mouth, Daily, # 60 tablet, 0 Refills, Maintenance, 10/29/20 11:16:00 EDT, Tablet, [facility], Partial fill upon patient request if the prescription is for a schedule II opioid drug., 163, cm, 10/29/20 7:52:00 EDT, He... Start Date: 10/29/20 Status: Ordered Tylenol Caplet = 650 mg, [...] Gm, 11 Refills, Maintenance, 06/25/20 14:10:00 EDT, [facility], 164, cm, 06/24/20 0:51:00 [...] of superficial veins of upper extremities(Confirmed) Active Results Radiology Reports * Exam Date Time Procedure Performing Provider Status 10/22/20 12:24 PM Chest Portable Rickey Ochoa (Verified) Notes: (Chest Portable) Reason For Exam: Shortness of Breath RESULT: Chest Portable AP upright portable chest dated October 22, 2020 at 1218 hours. There is an films are from August 24, 2020. HISTORY: Shortness of breath. FINDINGS: The cardiac silhouette is increased in size and has increased in the prior study. Mural calcifications are present in the aorta and Airways. Mild pulmonary vascular congestion is noted. A pacemaker/AICD is noted on the right. Wires extend to overlie the heart. No airspace consolidation orpleural effusion is appreciated. Visualized osseous structures show minimal degenerative changes in the spine and shoulders. IMPRESSION: Mild pulmonary vascular congestion which may result of volume overload or early congestive heart failure pattern. Examination 83797. Thank you for allowing me to participate in the care of this patient. WSN: [id number] Ordering Physician: Brian Paniagua V Dictated By: Gavin Cole MD Dictated Date/Time: 10/22/20 1:06 pm Reviewed By: Gavin Cole MD Signed By: Gavin Cole MD Signed Date/Time: 10/22/20 1:06 pm Transcribed By: RONALD Transcribed Date/Time: 10/22/20 1:06 pm Vital Signs Most recent to oldest [Reference Range]: 1 2 3 Height 163 cm (10/29/20 7:52 AM) 163 cm (10/29/20 2:11 AM) 163 cm (10/28/20 7:55 PM) Weight 90.8 kg (10/29/20 6:32 AM) 92.5 kg (10/28/20 6:12 AM) 94 kg (10/27/20 12:35 PM) Oxygen Saturation [94-100 %] 94 % (10/29/20 7:52 AM) 96 % (10/29/20 2:11 AM) 93 % *L* (10/28/20 7:55 PM) Pulse Rate [55-90 bpm] 72 bpm (10/29/20 8:55 AM) 72 bpm (10/29/20 7:52 AM) 79 bpm (10/29/20 2:11 AM) Body Mass Index [18.5-24.99] 35.38 *>HHI* (10/27/20 5:39 AM) 36.81 *>HHI* (10/22/20 5:16 PM) Blood Pressure [90-138/55-84 mm Hg] 129/66mm Hg (10/29/20 8:55 AM) 129/66mm Hg (10/29/20 7:52 AM) 127/59mm Hg (10/29/20 2:11 AM) Respiratory Rate [16-30 br/min] 18 br/min (10/29/20 7:52 AM) 18 br/min (10/29/20 2:11 AM) 16 br/min (10/28/20 7:55 PM) Temperature [96.8-100.4 DegF] 97.5 DegF (10/29/20 7:52 AM) 97.1 DegF (10/29/20 2:11 AM) 97.0 DegF (10/28/20 7:55 PM) Mode of Delivery (Oxygen) Room air (10/29/20 7:52 AM) Room air (10/29/20 2:11 AM) Room air (10/28/20 7:55 PM) Blood pressure sites Arm, right (10/29/20 7:52 AM) Arm, left (10/29/20 2:11 AM) Arm, right (10/28/20 7:55 PM) Temperature Route Oral (10/29/20 7:52 AM) Temporal (10/29/20 2:11 AM) Temporal (10/28/20 7:55 PM) Dry Weight 93.5 kg (10/22/20 5:16 PM) Weight Obtained Via Bed scale (10/29/20 6:32 AM) Bed scale (10/28/20 6:12 AM) Bed scale (10/27/20 5:39 AM) Dry Weight Obtained Via Patient/family stated (10/22/20 5:16 PM) Social History Social History Type Response Smoking Status Never (less than 100 in lifetime) entered on: 09/19/19 Sex
--- OUTSIDE RECORDS SUMMARY | 2023-03-22 10:39 | XMS_ITS | Continuity of Care Document ---
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 Start Date: 01/12/22 Stop Date: 01/07/23 Status: Ordered amiodarone 200 mg oral tablet 200 mg, 1, tablet, By Mouth, Daily, # 90 tablet, Refills 2, Tot. Refills 2, Maintenance, 05/02/22 14:32:00 EST, Route to Pharmacy Electronically, [facility], 163, cm, 03/21/22 12:14:00 EST, Height, 87.3, kg, 08/12/21 7:07:00 EDT, Dry Weight Start Date: 05/02/22 Stop Date: 01/27/23 Status: Ordered amLODIPine 10 mg oral tablet 10 mg, 1, tablet, By Mouth, Daily, # 90 tablet, Refills 11, Tot. Refills 11, Maintenance, 07/13/21 11:13:00 EDT, Route to Pharmacy Electronically, [facility], Partial fill upon patient request if the prescription is for a schedule II opioid... Start Date: 07/13/21 Status: Ordered Breo Ellipta 100 mcg-25 mcg/inh inhalation powder 1 puffs, Inhalation, Daily, # 1 each, 11 Refills, Maintenance, 01/12/22 12:08:00 EDT, Inhaler, [facility], Partial fill upon patient request if the prescription is for a schedule II opioiddrug., 1 puffs Inhalation Daily,x30 days, 163, cm,... Start Date: 01/12/22 Stop Date: 01/07/23 Status: Ordered carvedilol 25 mg oral tablet 50 mg, 2, tablet, By Mouth, 2 times a day, # 360 tablet, Refills 11, Tot. Refills 11, Maintenance, 07/01/22 11:12:00 EDT, Route to Pharmacy Electronically, [facility], Dose increase, 163, cm, 03/21/22 12:14:00 EST, Height, 87.3, kg, ... Start Date: 07/01/22 Stop Date: 06/15/25 Status: Ordered dapagliflozin 10 mg oral tablet 1 tablet = 10 mg, By Mouth, Daily, # 90 tablet, 11 Refills, Maintenance, 03/21/22 13:01:00 EST, Tablet, [facility], Dose increase, 163, cm, [...] 11 Refills, Maintenance, 10/25/21 15:10:00 EDT, Tablet, [facility], Partial fill upon patient [...] 2 Refills, Maintenance, 04/24/20 11:22:00 EST, Tablet, [facility], 163, cm, 02/14/20 10:48:00 [...] each, 11 Refills, Maintenance, 01/12/22 12:08:00 EDT, [facility], 163, cm, 01/12/22 10:50:00 EDT, Height, 87.3, kg, 08/12/21 7:07:00 EDT, Dry Weight Start Date: 01/12/22 Stop Date: 01/07/23 Status: Ordered spironolactone 50 mg oral tablet 1 tablet = 50 mg, By Mouth, Daily, dose increase, # 90 tablet, 3 Refills, Maintenance, 05/05/22 11:55:00 EST, [facility], 163, cm, 03/21/22 12:14:00 EST, Height, 87.3, kg, 08/12/21 7:07:00EDT, Dry Weight Start Date: 05/05/22 Stop Date: 04/30/23 Status: Ordered torsemide 20 mg oral tablet 1 tablet = 20 mg, By Mouth, Daily, # 90 tablet, 11 Refills, Maintenance, 07/13/21 11:14:00 EDT, Tablet, [facility], Partial fill upon patient [...] Pediatrics MD Member Role: PCP Address: Address: [address] [place] [id number] Name: Bettina Moran RN [facility] Member Role: Lifetime Consulting Physician Address: Address: [address] [place] [address] [place] [address]- Name: Sandra Dubois RN Position: [facility] RN Member Role: Primary Care Nurse Name: Taylor Lopes RN Position: [facility] [...] Persons Name: BESSIE ORTIZ Address: home [address] [place] [address] Name: SAMANTHA KHAN Address: home [address] [place] [address] Name: CARMEN WORTHY
--- OUTSIDE RECORDS SUMMARY | 2023-03-22 10:39 | XMS_ITS | Continuity of Care Document ---
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 Name Role Phone Tenisha Lara MD Primary Care Physician [phone] Encounter [facility] [place] Date(s): 11/05/20 - 12/05/20 [facility] [address] [place] [phone]- Attending Physician: Admtatyana, Fartun Admitting Physician: AdmtrFartun Referring Physician: Admtr, Ar8 Allergies, Adverse Reactions, [...] 11/19/20 11:15:00 EDT, Route to Pharmacy Electronically, [facility], Partial fill upon patient request if the [...] 06/09/20 11:25:00 EST, Route to Pharmacy Electronically, [facility], 163, cm, 02/14/20 10:48:00 EST, Height, 99, kg, 09/19/19 18:05:00 EDT, Dry Weight Start Date: 06/09/20 Stop Date: 06/04/21 Status: Ordered dapagliflozin 5 mg oral tablet 1 tablet = 5 mg, By Mouth, Daily, # 90 tablet, 0 Refills, Maintenance, 10/27/20 11:53:00 EDT, Tablet, [facility], Partial fill upon patient request if the prescription is for a scheduleII opioid drug., 163, cm, 10/27/20 7:45:00 EDT, Hei... Start Date: 10/27/20 Status: Ordered digoxin 0.125 mg oral tablet 1, tablet, By Mouth, Every Monday and , # 90 tablet, Refills 2, Tot. Refills 2, Maintenance, 10/30/20 10:00:00 EDT, Route to Pharmacy Electronically, [facility], 163, cm, 10/29/20 7:52:00 EDT, Height, 93.5, kg, 10/22/20 17:16:00 EDT... Start Date: 10/30/20 Status: Ordered Docusate/Senna Tablet 1 tablet, By Mouth, 2 times a day, PRN Constipation, 0 Refills, Maintenance, 12/04/20 11:06:00 EDT,Tablet, Partial fill upon patient request if the prescription is for a schedule II opioid drug. Start Date: 12/04/20 Status: Ordered Eliquis 5 mg oral tablet 1 tablet = 5 mg, By Mouth, 2 times a day, # 60 tablet, 0 Refills, Maintenance, 11/28/20 18:30:00 EDT, Tablet, Partial fill upon patient request if the prescription is for a schedule II opioid drug. Start Date: 11/28/20 Status: Ordered folic acid 1 mg oral tablet 1 mg, 1, tablet, By Mouth, Daily, # 30 tablet, Refills 0, Maintenance, 11/14/18 21:19:12 EDT Start Date: 11/14/18 Status: Ordered Insulin Lispro 2-10 units, Subcutaneous Injection, 3 times a day before meals, << Sliding Scale Comments >> 150 - 199 2 units Call if less than 70 200 - 249 4 units 250 - 299 6 units 300 - 349 8 units 350 - 399 10 units Call if greater than 400 <<... Start Date: 12/04/20 Status: Ordered melatonin 3 mg oral tablet [...] EDT, Tablet Start Date: 11/14/18 Status: Ordered Multi Vitamin+ Daily, 0 Refills, Maintenance, 09/25/20 12:29:00 EDT, Partial fill upon patient request if the prescription is for a schedule II opioid drug. Start Date: 09/25/20 Status: Ordered nitroglycerin 0.4 mg sublingual tablet 1 tablet = 0.4 mg, Sublingual, Every 5 minutes, PRN for chest pain, # 25 tablet, 2 Refills, Maintenance, 04/24/20 11:22:00 EST, Tablet, [facility], 163, cm, 02/14/20 10:48:00 [...] 06/12/20 Status: Ordered oxyCODONE 5 mg oral tablet 5 mg, 1, tablet, By Mouth, Every 6 hours, PRN, for 3 days, # 12 tablet, Refills 0, Tot. Refills 0, Acute 12/07/20 11:06:00 EDT, Pain , Moderate, 12/04/20 11:06:00 EDT, Print Requisition, Partial fillupon patient request if the prescription is for a s... Start Date: 12/04/20 Stop Date: 12/07/20 Status: Ordered simvastatin 10 mg oral tablet 10 mg, 1, tablet, By Mouth, Daily, Refills 0, Maintenance, 10/22/20 18:04:00 EDT, Partial fill uponpatient request if the prescription is for a schedule II opioid drug. Start Date: 10/22/20 Status: Ordered Spiriva Respimat 1.25 mcg/inh inhalation aerosol 2 sprays, Inhalation, Daily, # 4 Gm, 11 Refills, Maintenance, 09/25/20 13:18:00 EDT, [facility], 163, cm, 09/25/20 12:08:00 EDT, Height, 101.6, kg, 08/24/20 19:11:00 EDT, Dry Weight Start Date: 09/25/20 Status: Ordered Tessalon Perles 100 mg oral capsule 1 capsule = 100 mg, By Mouth, 3 times a day, PRN Cough, # 14 capsule, 0 Refills, Maintenance, 06/24/20 0:38:00 EDT, Capsule, [facility], Partial fill upon patient request if the prescription is for a schedule II opioid drug., 164, cm, 06/23... Start Date: 06/24/20 Status: Ordered traZODone 100 mg oral tablet [...] Gm, 11 Refills, Maintenance, 06/25/20 14:10:00 EDT, [facility], 164, cm, 06/24/20 0:51:00 [...]
--- OUTSIDE RECORDS SUMMARY | 2023-03-22 10:39 | XMS_ITS | Continuity of Care Document ---
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 Refills 11, Maintenance, 01/12/22 12:09:00 EDT, Aerosol, Route to Pharmacy Electronically, [id number], [facility], 163, cm, 01/12/22 10:50:00 [...] 10/19/22 11:20:00 EDT, Route to Pharmacy Electronically, [facility], Partial fill upon patient request if the prescription is for a schedule II opioid d... Start Date: 10/19/22 Status: Ordered Breo Ellipta 100 mcg-25 mcg/inh inhalation powder 1 puffs, Inhalation, Daily, # 1 each, 11 Refills, Maintenance, 01/12/22 12:08:00 EDT, Inhaler, [facility], Partial fill upon [...] 07/01/22 11:12:00 EDT, Route to Pharmacy Electronically, [facility], Dose increase, 163, cm, 03/21/22 12:14:00 EST, Height, 87.3, kg, ... Start Date: 07/01/22 Stop Date: 06/15/25 Status: Ordered dapagliflozin 10 mg oral tablet 1 tablet = 10 mg, By Mouth, Daily, # 90 tablet, 11 Refills, Maintenance, 03/21/22 13:01:00 EST, Tablet, [facility], Dose increase, 163, cm, [...] tablet, 5 Refills, Maintenance, 12/21/22 12:30:00 EDT, [facility], 30, Take 1 tablet [...] 2 Refills, Maintenance, 04/24/20 11:22:00 EST, Tablet, [facility], 163, cm, 02/14/20 [...] each, 11 Refills, Maintenance, 01/12/22 12:08:00 EDT, [facility], 163, cm, 01/12/22 10:50:00 EDT, Height, 87.3, kg, 08/12/21 7:07:00 EDT, Dry Weight Start Date: 01/12/22 Stop Date: 01/07/23 Status: Ordered spironolactone 50 mg oral tablet 1 tablet = 50 mg, By Mouth, Daily, dose increase, # 90 tablet, 3 Refills, Maintenance, 05/05/22 11:55:00 EST, [facility], 163, cm, 03/21/22 12:14:00 EST, Height, 87.3, kg, 08/12/21 7:07:00EDT, Dry Weight Start Date: 05/05/22 Stop Date: 04/30/23 Status: Ordered torsemide 20 mg oral tablet 1 tablet = 20 mg, By Mouth, Daily, # 90 tablet, 11 Refills, Maintenance, 07/13/21 11:14:00 EDT, Tablet, [facility], Partial fill upon [...] Team Personnel Name: Tenisha Lara MD Position[facility] Physician - Pediatrics Member Role: PCP Address: Address: [address] [place] [phone]- Name: Bettina Moran RN Position: S RN Member Role: Primary Care Nurse Name: Britany Fuentes RN Position: [facility] RN Member Role: Primary Care Nurse Name: Nathan ECHEVERRIA, Jenaro Hinojosa Position: [facility] Cardiology MD Member Role: Lifetime Consulting Physician Address: Address: [address] [place] [address] [place] [address]- Name: Sandra Dubois RN Position: [facility] RN Member Role: Primary Care Nurse Name: Taylor Lopes RN Position: [facility] RN Member Role: Primary Care Nurse Name: Haresh Deal RN Position: [facility] SN RN Member Role: Primary Care Nurse Name: Taina Lambert RN Position: [facility] RN Member Role: Primary Care Nurse Name: Teri Azevedo RN Position: [facility] SN RN Member Role: Primary Care Nurse Name: Zoie Abdalla RN Position: [facility] RN Member Role: Primary Care Nurse Care Team Related Persons Name: BESSIE ORTIZ Address: home [address] [place] [address] Name: SAMANTHA KHAN Address: home [address] [place] [address] Name: CARMEN WORTHY
--- OUTSIDE RECORDS SUMMARY | 2023-03-22 10:39 | XMS_ITS | Continuity of Care Document ---
Author Name Unknown Organization [facility] ter Address [address] [place] [address]- Care Team Providers Care Patient Admitting Representative Name Role Phone Jane ECHEVERRIA, Tenisha Primary Care Physician Encounter [facility] Date(s): 05/23/19 - 05/23/[address] [address]- [facility] Attending Physician: Daisha RASCON, Nel Nieto Allergies, Adverse Reactions, Alerts Substance Reaction Severity Status codeine headache Active penicillins 1 Active Arava Active Zestril cough Active 1Tolerates cefepime Medications albuterol 0.083% inhalation solution 3 mL = 2.5 mg, Neb, Every 6 hours, PRN as needed for wheezing, Asthma: J45.909, # 360 mL, 11 Refills, Maintenance, 05/21/19 10:27:00 EST, Solution, 163, cm, 05/21/19 9:55:00 EST, Height, 93.5, kg, 11/14/18 20:45:00 EDT, Dry Weight Start Date: 05/21/19 Stop Date: 05/15/20 Status: Ordered albuterol-ipratropium 3 mg-0.5 mg/3 ml inhalation solution 3 mL, Inhalation, 4 times a day, # 30 each, 0 Refills, Maintenance, 05/21/19 9:59:00 EST, Solution Start Date: 05/21/19 Status: Ordered carvedilol 25 mg oral tablet 1, tablet, By Mouth, 2 times a day, # 60 each, Refills 0, Tot. Refills 0, Maintenance, 05/08/19 12:04:00 EST, Route to Pharmacy Electronically, [facility], 163, cm, 03/14/19 14:03:00 EST, Height, 93.5, kg, 11/14/18 20:45:00 EDT, Dry Weight Start Date: 05/08/19 Status: Ordered Entresto 97 mg-103 mg oral tablet See Instructions, 1/2 tablet By Mouth 2 times a day, 0 Refills, Maintenance, 05/21/19 9:15:00 EST Start Date: 05/21/19 Status: Ordered folic acid 1 mg oral tablet 1 mg, 1, tablet, By Mouth, Daily, # 30 tablet, Refills 0, Maintenance, 11/14/18 21:19:12 EDT Start Date: 11/14/18 Status: Ordered furosemide 20 mg oral tablet 60 mg, 3, tablet, By Mouth, 2 times a day, [...] injection = 30 units, Subcutaneous Injection, Daily, 0 Refills, Maintenance, 12/01/17 13:40:05 EDT, Injection Start Date: 12/01/17 Status: Ordered Klor-Con By Mouth, 2 times a day, 0 Refills, Maintenance, 09/20/18 12:56:26 EDT Start Date: 09/20/18 Status: Ordered methotrexate 2.5 mg oral tablet 6 tablet = 15 mg, By Mouth, Every Monday, # 4 tablet, 0 Refills, Maintenance, 11/14/18 21:17:23 EDT, Tablet Start Date: 11/14/18 Status: Ordered nitroglycerin 0.4 mg sublingual tablet 1 tablet = 0.4 mg, Sublingual, Every 5 minutes, PRN for chest pain, # 25 tablet, 2 Refills, Maintenance, 10/12/18 17:01:00 EDT, Tablet Start Date: 10/12/18 Status: Ordered simvastatin 20 mg oral tablet 20 mg, 1, tablet, By Mouth, Daily at bedtime, # 90 tablet, Refills 0, Maintenance, 05/21/19 9:15:00EST Start Date: 05/21/19 Status: Ordered Spiriva Respimat 1.25 mcg/inh inhalation aerosol 2 puffs, Inhalation, Daily, # 1 each, 11 Refills, Maintenance, 01/03/19 11:44:26 EDT, Aerosol Start Date: 01/03/19 Stop Date: 12/29/19 Status: Ordered Symbicort 160mcg/4.5mcg Inhaler 2, puffs, Inhalation, 2 times a day, # 1 each, Refills 11, Tot. Refills 11, Maintenance, 05/21/19 12:21:00 EST, Aerosol, Route to Pharmacy Electronically, [id number], [facility], 163, cm, 05/21/19 9:55:00 EST, Heig... Start Date: 05/21/19 Status: Ordered Tylenol 8 Hour 650 mg oral tablet, extended release See Instructions, 1 tablet By Mouth NEEDED, 0 Refills, Maintenance, 09/20/18 12:56:42 EDT Start Date: 09/20/18 Status: Ordered Ventolin HFA 108 mcg/inh inhalation aerosol with adapter 2 puffs, Inhalation, 4 times a day, PRN for wheezing, # 1 each, 11 Refills, Maintenance, 07/02/18 17:55:59 EDT, Aerosol Start Date: 07/02/18 Stop Date: 06/27/19 Status: Ordered warfarin 5 mg oral tablet 1 tablet = 5 mg, By Mouth, Daily, 1-2 tabs, # 30 tablet, 0 Refills, Maintenance, 11/14/18 21:20:15 EDT, Tablet Start Date: 11/14/18 Status: Ordered Problem List Condition Effective Dates Status Health Status Inform ant Congestive heart failure(Confirmed) Active Diabetes mellitus - adult onset(Confirmed) Active Eosinophilic pneumonia(Confirmed) Active Implantable defibrillator(Confirmed) Active Left bundle branch block(Confirmed) Active Mild asthma(Confirmed) Active Primary cardiomyopathy(Confirmed) Active Phlebitis and thrombophlebit is of superficial veins of upper extremities(Confirmed) Active Social History Social History Type Response Smoking Status Never smoker entered on: 12/15/17 Sex
--- OUTSIDE RECORDS SUMMARY | 2023-03-22 10:39 | XMS_ITS | Continuity of Care Document ---
Author Name Unknown Organization [facility] ter Address [address] [place] [address]- Care Team Providers Care Envelope Folding Machine Adjuster Name Role Phone Tenisha Lara MD Primary Care Physician [phone] Encounter [facility] [place] Date(s): 08/12/21 - 08/12/[address] [address]- Discharge Disposition: A-D/C Home Attending Physician: Jenaro Nicholas DO Admitting Physician: Jenaro Nicholas DO Referring Physician: Lara Conti MD Allergies, Adverse Reactions, Alerts Substance Reaction Severity Status codeine headache Active Arava Active Bee Stings Active Augmentin Active penicillins 1 Active Zestril cough Active 1Tolerates cefepime Medications amiodarone 200 mg oral tablet 200 mg, 1, tablet, By Mouth, Daily, # 30 tablet, Refills 5, Tot. Refills 5, Maintenance, 11/19/20 11:15:00 EDT, Route to Pharmacy Electronically, [facility], Partial fill upon patient request if the prescription is for a schedule II opioid... Start Date: 11/19/20 Status: Ordered amLODIPine 10 mg oral tablet 10 mg, 1, tablet, By Mouth, Daily, # 90 tablet, Refills 11, Tot. Refills 11, Maintenance, 07/13/21 11:13:00 EDT, [facility], Partial fill upon patient request [...] 07/13/21 11:12:00 EDT, Route to Pharmacy Electronically, [facility], Dose increase, 163, cm, 07/13/21 10:43:00 EDT, Height, 93.5, kg, ... Start Date: 07/13/21 Status: Ordered dapagliflozin 5 mg oral tablet 1 tablet = 5 mg, By Mouth, Daily, # 90 tablet, 0 Refills, Maintenance, 10/27/20 11:53:00 EDT, Tablet, [facility], Partial fill upon patient request if the prescription is for a scheduleII opioid drug., 163, cm, 10/27/20 7:45:00 EDT, Hei... Start Date: 10/27/20 Status: Ordered Eliquis 5 mg oral tablet [...] 2 Refills, Maintenance, 04/24/20 11:22:00 EST, Tablet, [facility], 163, cm, 02/14/20 10:48:00 [...] Gm, 11 Refills, Maintenance, 09/25/20 13:18:00 EDT, [facility], 163, cm, 09/25/20 12:08:00 EDT, Height, 101.6, kg, 08/24/20 19:11:00 EDT, Dry Weight Start Date: 09/25/20 Status: Ordered spironolactone 25 mg oral tablet 12.5 mg, 0.5, tablet, By Mouth, Daily, # 15 tablet, Refills 11, Tot. Refills 11, Maintenance, 07/13/21 11:14:00 EDT, Route to Pharmacy Electronically, [facility], Partial fill upon patientrequest if the prescription is for a schedule II op... Start Date: 07/13/21 Status: Ordered torsemide 20 mg oral tablet 1 tablet = 20 mg, By Mouth, Daily, # 90 tablet, 11 Refills, Maintenance, 07/13/21 11:14:00 EDT, Tablet, [facility], Partial fill upon patient request if the prescription is for a schedule II opioid drug., 163, cm, 07/13/21 10:43:00 EDT, Heale... Start Date: 07/13/21 Status: Ordered traZODone 100 [...] Range]: 1 2 3 Height 163 cm (08/12/21 6:49 AM) 163 cm (08/12/21 6:47 AM) Weight 87.3 kg (08/12/21 6:49 AM) 87.3 kg (08/12/21 6:47 AM) Oxygen Saturation [94-100 %] 99 % (08/12/21 2:30 PM) 100 % (08/12/21 2:00 PM) 97 % (08/12/21 1:30 PM) Body Mass Index [18.5-24.99] 32.86 *>HHI* (08/12/21 6:47 AM) Blood Pressure [90-138/55-84 mm Hg] 141/64mm Hg *H* (08/12/21 2:30 PM) 141/64mm Hg *H* (08/12/21 2:00 PM) 141/64mm Hg *H* (08/12/21 1:30 PM) Respiratory Rate [16-30 br/min] 18 br/min (08/12/21 2:30 PM) 27 br/min (08/12/21 2:00 PM) 25 br/min (08/12/21 1:30 PM) Temperature [96.8-100.4 DegF] 97.5 DegF (08/12/21 7:00 AM) 97.5 DegF (08/12/21 6:47 AM) Mode of Delivery (Oxygen) Room air (08/12/21 2:30 PM) Room air (08/12/21 2:00 PM) Room air (08/12/21 1:30 PM) Blood pressure sites Arm, left (08/12/21 2:30 PM) Arm, left (08/12/21 2:00 PM) Arm, left (08/12/21 1:30 PM) Temperature Route Temporal (08/12/21 7:00 AM) Temporal (08/12/21 6:47 AM) Dry Weight 87.3 kg (08/12/21 6:49 AM) 87.3 kg (08/12/21 6:47 AM) Social History Social History Type Response Smoking Status Never (less than 100 in lifetime) entered on: 09/19/19 Sex
--- OUTSIDE RECORDS SUMMARY | 2023-03-22 10:39 | XMS_ITS | Continuity of Care Document ---
Author Name Unknown Organization [facility] Address [address] [place] [phone]- Care Team Providers Care Train Reservation Clerk Name Role Phone Tenisha Lara MD Primary Care Physician Encounter [facility] [place](s[place] 11/28/20 - 12/04/[address] [address]- Encounter Diagnosis Syncope(Final) - 11/28/20 Femur fracture, right(Final) - 11/28/20 Discharge Disposition: A-Transfer SNF Attending Physician: Isabel Palm DO Admitting Physician: Zelalem Walden MD Referring Physician: Not on Staff, Referring MD Allergies, Adverse Reactions, Alerts Substance Reaction Severity Status codeine headache Active penicillins 1 Active Arava Active Zestril cough Active Augmentin Active Bee Stings Active 1Tolerates cefepime Medications acetaminophen 325 mg oral tablet 975 mg, Tablet, By Mouth, 3 times a day, PRN for Pain , Mild, Routine, 11/28/20 18:11:00 EDT Start Date: 11/28/20 Stop Date: 12/05/20 Status: Discontinued albuterol-ipratropium 3 mg-0.5 mg/3 ml inhalation solution 3 mL, Inhalation, 4 times a day, PRN As needed, # 30 each, 0 Refills, Maintenance, 05/21/19 9:59:00EST, Solution Start Date: 05/21/19 Status: Ordered amiodarone 200 mg oral tablet 200 mg, 1, tablet, By Mouth, Daily, # 30 tablet, Refills 5, Tot. Refills 5, Maintenance, 11/19/20 11:15:00 EDT, Route to Pharmacy Electronically, [facility], Partial fill upon patient request if the [...] oral tablet 25 mg, Tablet, By Mouth, Hold for: sbp<90 and/or dbp<60, 12/04/20 9:00:00 EDT Start Date: 12/04/20 Stop Date: 12/04/20 Status: Completed dapagliflozin 5 mg oral tablet 1 tablet = 5 mg, By Mouth, Daily, # 90 tablet, 0 Refills, Maintenance, 10/27/20 11:53:00 EDT, Tablet, [facility], Partial fill upon patient request if the prescription is for a scheduleII opioid drug., 163, cm, 10/27/20 7:45:00 EDT, Hei... Start Date: 10/27/20 Status: Ordered digoxin 0.125 mg oral tablet 1, tablet, By Mouth, Every Monday and , # 90 tablet, Refills 2, Tot. Refills 2, Maintenance, 10/30/20 10:00:00 EDT, Route to Pharmacy Electronically, [facility], 163, cm, 10/29/20 7:52:00 [...] 2 Refills, Maintenance, 04/24/20 11:22:00 EST, Tablet, [facility], 163, cm, 02/14/20 10:48:00 EST, Height, [...] oxyCODONE 5 mg oral tablet 5 mg, Tablet, By Mouth, Every 6 hours, Hold for: sedation, respiratory depression, PRN for Pain , Moderate, Routine, 11/28/20 18:12:00 EDT Start Date: 11/28/20 Stop Date: 12/05/20 Status: Discontinued oxyCODONE 5 mg oral tablet 5 mg, [...] Gm, 11 Refills, Maintenance, 09/25/20 13:18:00 EDT, [facility], 163, cm, 09/25/20 12:08:00 [...] superficial veins of upper extremities(Confirmed) Active Results Orders for Microbiology Reports Name Date Anaerobic Culture (ANAEROBIC CULTURE) Fungal Culture, Nonrespiratory (FUNGAL C ULT,NON-RESPIRATORY) 12/01/20 Tissue Culture w/ Gram Smear (TISSUE/BIO PSY CULT.) 12/01/20 Microbiology Reports TEST:Anaerobic Culture STATUS:Unauthenticated BODY SITE: SOURCE:KNEE R COLLECTED DATE/TIME:12/01/20 3:10 PM Anaerobic Culture SPECIMEN DESCRIPTION : KNEE RIGHT SYNOVIUM SPECIAL REQUESTS : NONE CULTURE : NO ANAEROBES ISOLATED SO FAR. REPORT STATUS : PRELIMINARY REPORT TEST:Tissue/Biopsy Culture STATUS:Auth (Verified) BODY SITE: SOURCE:KNEE R COLLECTED DATE/TIME:12/01/20 3:10 PM Tissue/Biopsy Culture SPECIMEN DESCRIPTION : KNEE RIGHT SYNOVIUM SPECIAL REQUESTS : NONE GRAM STAIN : 1+ WHITE BLOOD CELLS 2+ RBC'S NO ORGANISMS SEEN CULTURE : NO GROWTH 2 DAYS REPORT STATUS : FINAL 12/03/2020 TEST:Fungal Culture, Non-Respiratory STATUS:Unauthenticated BODY SITE: SOURCE:KNEE R COLLECTED DATE/TIME:12/01/20 3:10 PM Fungal Culture, Non-Respiratory SPECIMEN DESCRIPTION : KNEE RIGHT SYNOVIUM SPECIAL REQUESTS : NONE DIRECT EXAM : NO FUNGAL ELEMENTS OBSERVED CULTURE : NO FUNGI ISOLATED AFTER 2 DAYS REPORT STATUS : PRELIMINARY REPORT Radiology Reports * Exam Date Time Procedure Performing Provider Status 12/01/20 4:12 PM C-Arm > 1 Hour Carrol Rodriguez; Ry h (Verified) Notes: (C-Arm > 1 Hour) Reason For Exam: fracture orif right femur RESULT: C-Arm > 1 Hour Femur 2 Views Right, C-Arm > 1 Hour INDICATION: Reason: fracture orif right femur COMPARISONS: None TECHNIQUE: Fluoroscopy support was provided. There was no radiologist in attendance. Fluoroscopy time: 154.8 seconds Technologist time: 2 hours 15 minutes Exposure: 16.12 mGy FINDINGS: Fluoroscopy support was provided. There was no radiologist in attendance. IMPRESSION: See above. WSN: [id number] Ordering Physician: Braeden Mcbride Dictated By: Vinod Daniels MD Dictated Date/Time: 12/01/20 4:15 pm Reviewed By: Vinod Daniels MD Signed By: Vinod Daniels MD Signed Date/Time: 12/01/20 4:15 pm Transcribed By: RONALD Transcribed Date/Time: 12/01/20 4:15 pm * Exam Date Time Procedure Performing Provider Status 12/01/20 4:12 PM XR Femur 2 Views Right Brenda Rodriguez; Auth (Verified) Notes: (XR Femur 2 Views Right) Reason For Exam: fracture orif right femur RESULT: Femur 2 Views Right Femur 2 Views Right, C-Arm > 1 Hour INDICATION: Reason: fracture orif right femur COMPARISONS: None TECHNIQUE: Fluoroscopy support was provided. There was no radiologist in attendance. Fluoroscopy time: 154.8 seconds Technologist time: 2 hours 15 minutes Exposure: 16.12 mGy FINDINGS: Fluoroscopy support was provided. There was no radiologist in attendance. IMPRESSION: See above. WSN: [id number] Ordering Physician: Braeden Mcbride Dictated By: Vinod Daniels MD Dictated Date/Time: 12/01/20 4:15 pm Reviewed By: Vinod Daniels MD Signed By: Vinod Daniels MD Signed Date/Time: 12/01/20 4:15 pm Transcribed By: RONALD Transcribed Date/Time: 12/01/20 4:15 pm * Exam Date Time Procedure Performing Provider Status 11/28/20 3:51 AM Pelvis 1 or 2 Views Abad Villanueva; [facility] (Verified) Notes: (Pelvis 1 or 2 Views) Reason For Exam: Trauma RESULT: Pelvis 1 or 2 Views Pelvis 1 or 2 Views Hx of Present Illness: Fall; Reason: Trauma; Clinical Question(s): Fracture COMPARISON: Right femur radiographs of the same date. FINDINGS: There is no fracture or dislocation. Bone mineralization is normal. There is superior joint space narrowing in both hips, which are otherwise unremarkable. Minimal degenerative change in the inferior portion of each SI joint. Normal soft tissues. IMPRESSION: No acute abnormality. Degenerative cartilage thinning in the superior aspect of each hip. Mild degenerative change in both SI joints. WSN: [id number] Ordering Physician: Andree Olguin Dictated By: Herbert Orr MD Dictated Date/Time: 11/28/20 8:13 am Reviewed By: Herbert Orr MD Signed By: Herbert Orr MD Signed Date/Time: 11/28/20 8:13 am Transcribed By: RONALD Transcribed Date/Time: 11/28/20 8:10 am * Exam Date Time Procedure Performing Provider Status 11/28/20 3:51 AM XR Femur 2 Views Right Abad Villanueva ; Bibi (Verified) Notes: (XR Femur 2 Views Right) Reason For Exam: Trauma RESULT: Femur 2 Views Right Femur 2 Views Right, 2 views Hx of Present Illness: Fall; Reason: Trauma; Clinical Question(s): Fracture COMPARISON: Concurrent CT. FINDINGS: Severely comminuted and moderately displaced distal femoral diaphyseal fracture extending into the femoral metaphysis including the right femoral condyle and intercondylar region. The distal component is displaced and angulated posteriorly as well as displaced laterally. Patient status post total knee arthroplasty. There is bony fusion of the proximal tibia and fibula.No proximal femoral fracture. No hip dislocation. Arterial vascular calcifications. IMPRESSION: Severely comminuted moderately displaced distal femoral periprosthetic fracture as described above. WSN: [id number] Ordering Physician: Andree Olguin Dictated By: Cornelius Castro MD Dictated Date/Time: 11/28/20 8:11 am Reviewed By: Cornelius Castro MD Signed By: Cornelius Castro MD Signed Date/Time: 11/28/20 8:11 am Transcribed By: RONALD Transcribed Date/Time: 11/28/20 8:09 am Vital Signs Most recent to oldest [Reference Range]: 1 2 3 Oxygen Saturation [94-100 %] 95 % (12/04/20 10:58 AM) 95 % (12/04/20 7:48 AM) 98 % (12/04/20 7:06 AM) Pulse Rate [55-90 bpm] 69 bpm (12/04/20 10:58 AM) 74 bpm (12/04/20 7:42 AM) 74 bpm (12/04/20 7:06 AM) Blood Pressure [90-138/55-84 mm Hg] 115/48mm Hg (12/04/20 10:58 AM) 124/52mm Hg (12/04/20 7:42 AM) 124/52mm Hg (12/04/20 7:06 AM) Respiratory Rate [16-30 br/min] 17 br/min (12/04/20 12:46 PM) 17 br/min (12/04/20 12:46 PM) 17 br/min (12/04/20 11:46 AM) Temperature [96.8-100.4 DegF] 98 DegF (12/04/20 10:58 AM) 98.4 DegF (12/04/20 7:06 AM) 98.6 DegF (12/04/20 5:45 AM) Liters per Minute 0.5 L/min (12/04/20 10:58 AM) 0.5 L/min (12/04/20 7:48 AM) 1 L/min (12/04/20 7:06 AM) Mode of Delivery (Oxygen) Nasal cannula (12/04/20 10:58 AM) Nasal cannula (12/04/20 7:48 AM) Nasal cannula (12/04/20 7:06 AM) Blood pressure sites Arm, left (12/04/20 10:58 AM) Arm, left (12/04/20 7:06 AM) Arm, left (12/03/20 2:54 PM) Temperature Route Oral (12/04/20 10:58 AM) Oral (12/04/20 7:06 AM) Oral (12/04/20 5:45 AM) Social History Social History Type Response Smoking Status Never (less than 100 in lifetime) entered on: 09/19/19 Sex
--- OUTSIDE RECORDS SUMMARY | 2023-03-22 10:39 | XMS_ITS | Continuity of Care Document ---
Author Name Unknown Organization [facility] Address [address] [address]- Care Team Providers Care Hop Separator Name Role Phone Tenisha Lara MD Primary Care Physician [place] [facility] [place] [facility] [id number] Date(s): 01/09/23 - 02/08/23 [facility] [address] [address] Attending Physician: Admtr, Ar8 Admitting Physician: [...] 12:09:00 EDT, Aerosol, Route to Pharmacy Electronically, [id number], [facility], 163, cm, 01/12/22 10:50:00 [...] 10/19/22 11:20:00 EDT, Route to Pharmacy Electronically, [facility], Partial fill upon patient request if the prescription is for a schedule II opioid d... Start Date: 10/19/22 Status: Ordered Breo Ellipta 100 mcg-25 mcg/inh inhalation powder 1 puffs, Inhalation, Daily, # 1 each, 11 Refills, Maintenance, 01/12/22 12:08:00 EDT, Inhaler, [facility], Partial fill upon patient request if the prescription is for a schedule II opioiddrug., 1 puffs Inhalation Daily,x30 days, 163, cm,... Start Date: 01/12/22 Stop Date: 01/07/23 Status: Ordered carvedilol 25 mg oral tablet 50 mg, 2, tablet, By Mouth, 2 times a day, # 360 tablet, Refills 11, Tot. Refills 11, Maintenance, 07/01/22 11:12:00 EDT, Route to Pharmacy Electronically, [facility], Dose increase, 163, cm, 03/21/22 12:14:00 EST, Height, 87.3, kg, ... Start Date: 07/01/22 Stop Date: 06/15/25 Status: Ordered dapagliflozin 10 mg oral tablet 1 tablet = 10 mg, By Mouth, Daily, # 90 tablet, 11 Refills, Maintenance, 03/21/22 13:01:00 EST, Tablet, [facility], Dose increase, 163, cm, [...] tablet, 5 Refills, Maintenance, 12/21/22 12:30:00 EDT, [facility], 30, Take 1 tablet [...] 2 Refills, Maintenance, 04/24/20 11:22:00 EST, Tablet, [facility], 163, cm, 02/14/20 10:48:00 [...] each, 11 Refills, Maintenance, 01/12/22 12:08:00 EDT, [facility], 163, cm, 01/12/22 10:50:00 EDT, Height, 87.3, kg, 08/12/21 7:07:00 EDT, Dry Weight Start Date: 01/12/22 Stop Date: 01/07/23 Status: Ordered spironolactone 50 mg oral tablet 1 tablet = 50 mg, By Mouth, Daily, dose increase, # 90 tablet, 3 Refills, Maintenance, 05/05/22 11:55:00 EST, [facility], 163, cm, 03/21/22 12:14:00 EST, Height, 87.3, kg, 08/12/21 7:07:00EDT, Dry Weight Start Date: 05/05/22 Stop Date: 04/30/23 Status: Ordered torsemide 20 mg oral tablet 1 tablet = 20 mg, By Mouth, Daily, # 90 tablet, 11 Refills, Maintenance, 07/13/21 11:14:00 EDT, Tablet, [facility], Partial fill upon patient [...] Team Personnel Name: Tenisha Lara MD Position: [facility] Physician - Pediatrics Member Role: PCP Address: Address: [address] [place] [id number]- Name: Bettina Moran RN Position: [facility] RN Member Role: Primary Care Nurse Name: Britany Fuentes RN Position: [facility] RN Member Role: Primary Care Nurse Name: Jenaro Evans MD Position: [facility] Cardiology MD Member Role: Lifetime Consulting Physician Address: Address: [address] [place] [address], [address] [place] [address] [place] [address]- Name: Sandra Dubois RN Position: S RN Member Role: Primary Care Nurse Name: Taylor Lopes RN Position: S RN Member Role: Primary Care Nurse Name: Haresh Deal RN Position: [facility] SN RN Member Role: Primary Care Nurse Name: Taina Lambert RN Position: S RN Member Role: Primary Care Nurse Name: Teri Azevedo RN Position: [facility] SN RN Member Role: Primary Care Nurse Name: Zoie Abdalla RN Position: S RN Member Role: Primary Care Nurse Care Team Related Persons Name: BESSIE ORTIZ Address: home [address] [place] [address] Name: SAMANTHA KHAN Address: home [address] [place] [address] Name: CARMEN WORTHY
--- OUTSIDE RECORDS SUMMARY | 2023-03-22 10:39 | XMS_ITS | Continuity of Care Document ---
Author Name Unknown Organization [facility] Address [address] [place] [address]- Care Team Providers Care Artist Woodblock Name Role Phone Tenisha Lara MD Primary Care Physician [phone] Encounter [facility] [place] Date(s): 03/24/22 - 04/23/22 [facility] [address] [place] [id number]- [place] Allergies, Adverse Reactions, Alerts Substance Reaction Severity Status codeine headache Active Arava Active Augmentin Active Bee Stings Active penicillins 1 Active Zestril cough Active 1Tolerates cefepime Medications albuterol CFC free 90 mcg/inh inhalation aerosol 2, puffs, Inhalation, 4 times a day, PRN, # 18 Gm, Refills 11, Tot. Refills 11, Maintenance, 01/12/22 12:09:00 EDT, Aerosol, Route to Pharmacy Electronically, [id number], [facility], 163, cm, 01/12/22 10:50:00 EDT,... Start Date: 01/12/22 Stop Date: 01/07/23 Status: Ordered amiodarone 200 mg oral tablet 200 mg, 1, tablet, By Mouth, Daily, # 30 tablet, Refills 1, Tot. Refills 1, Maintenance, 02/21/22 12:41:00 EST, Route to Pharmacy Electronically, [facility], Partial fill upon patient request if the prescription is for a schedule II opioid... Start Date: 02/21/22 Stop Date: 04/22/22 Status: Ordered amLODIPine 10 mg oral tablet 10 mg, 1, tablet, By Mouth, Daily, # 90 tablet, Refills 11, Tot. Refills 11, Maintenance, 07/13/21 11:13:00 EDT, Route to Pharmacy Electronically, [facility], Partial fill upon patient request if the prescription is for a schedule II opioid... Start Date: 07/13/21 Status: Ordered Breo Ellipta 100 mcg-25 mcg/inh inhalation powder 1 puffs, Inhalation, Daily, # 1 each, 11 Refills, Maintenance, 01/12/22 12:08:00 EDT, Inhaler, [facility], Partial fill upon patient request if the prescription is for a schedule II opioiddrug., 1 puffs Inhalation Daily,x30 days, 163, cm,... Start Date: 01/12/22 Stop Date: 01/07/23 Status: Ordered carvedilol 25 mg oral tablet 25 mg, 1, tablet, By Mouth, 2 times a day, # 180 tablet, Refills 11, Tot. Refills 11, Maintenance, 07/13/21 11:12:00 EDT, Route to Pharmacy Electronically, [facility], Dose increase, 163, cm, 07/13/21 10:43:00 EDT, Height, 93.5, kg, ... Start Date: 07/13/21 Status: Ordered dapagliflozin 10 mg oral tablet 1 tablet = 10 mg, By Mouth, Daily, # 90 tablet, 11 Refills, Maintenance, 03/21/22 13:01:00 EST, Tablet, [facility], Dose increase, 163, cm, [...] 11 Refills, Maintenance, 10/25/21 15:10:00 EDT, Tablet, [facility], Partial fill upon patient [...] 2 Refills, Maintenance, 04/24/20 11:22:00 EST, Tablet, [facility], 163, cm, 02/14/20 10:48:00 [...] each, 11 Refills, Maintenance, 01/12/22 12:08:00 EDT, [facility], 163, cm, 01/12/22 10:50:00 EDT, Height, 87.3, kg, 08/12/21 7:07:00 EDT, Dry Weight Start Date: 01/12/22 Stop Date: 01/07/23 Status: Ordered spironolactone 50 mg oral tablet 1 tablet = 50 mg, By Mouth, Daily, dose increase, # 30 tablet, 3 Refills, Maintenance, 04/01/22 12:09:00 EST, [facility], 163, cm, 03/21/22 12:14:00 EST, Height, 87.3, kg, 08/12/21 7:07:00EDT, Dry Weight Start Date: 04/01/22 Stop Date: 07/30/22 Status: Ordered torsemide 20 mg oral tablet 1 tablet = 20 mg, By Mouth, Daily, # 90 tablet, 11 Refills, Maintenance, 07/13/21 11:14:00 EDT, Tablet, [facility], Partial fill upon patient [...] Team Personnel Name: Aura Fox RN Position: [facility] ED RN W/OE and Tasks Member Role: Primary Care Nurse Name: Opal Gonzalez RN Position: S RN Member Role: Primary Care Nurse Name: Tenisha Lara MD Position: [facility] General Pediatrics MD Member Role: PCP Address: Address: [address] [place] [address]- Name: Bettina Moran RN Position: [facility] RN Member Role: Primary Care Nurse Name: Britany Fuentes RN Position: [facility] ED RN W/OE and Tasks Member Role: Primary Care Nurse Name: Jenaro Evans MD Position: [facility] Cardiology MD Member Role: Lifetime Consulting Physician Address: Address: [address] [place] [address] [place] [address]- Name: Sandra Dubois RN Position: [facility] RN Member Role: Primary Care Nurse Name: Taylor Lopes RN Position: [facility] RN Member Role: Primary Care Nurse Name: Haresh Deal RN Position: S RN Member Role: Primary Care Nurse Name: Taina Lambert RN Position: S RN Member Role: Primary Care Nurse Name: Teri Azevedo RN Position: [facility] SN RN Member Role: Primary Care Nurse Name: Zoie Abdalla RN Position: S RN Member Role: Primary Care Nurse Care Team Related Persons Name: BESSIE ORTIZ Address: home [address] [place] [address] Name: SAMANTHA KHAN Address: home [address] [place] [address] Name: CARMEN WORTHY
--- OUTSIDE RECORDS SUMMARY | 2023-03-22 10:39 | XMS_ITS | Continuity of Care Document ---
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 R [id number] Date(s): 05/14/21 - 06/13/21 [facility] [address] [place] [address]- Attending Physician: Admtatyana, Fartun Admitting Physician: Admtr, Fartun Referring Physician: Admtr, Ar8 Allergies, Adverse Reactions, [...] 11/19/20 11:15:00 EDT, Route to Pharmacy Electronically, [facility], Partial fill upon patient request if the [...] Maintenance,12/31/20 16:52:00 EDT, Route to Pharmacy Electronically, [facility], Partial fill upon patient request if the prescription is for a schedule... Start Date: 12/31/20 Stop Date: 12/26/21 Status: Ordered dapagliflozin 5 mg oral tablet 1 tablet = 5 mg, By Mouth, Daily, # 90 tablet, 0 Refills, Maintenance, 10/27/20 11:53:00 EDT, Tablet, [facility], Partial fill upon patient request if the prescription is for a scheduleII opioid drug., 163, cm, 10/27/20 7:45:00 EDT, Hei... Start Date: 10/27/20 Status: Ordered digoxin 0.125 mg oral tablet 1, tablet, By Mouth, Every Monday and , # 90 tablet, Refills 2, Tot. Refills 2, Maintenance, 10/30/20 10:00:00 EDT, Route to Pharmacy Electronically, [facility], 163, cm, 10/29/20 7:52:00 [...] tablet, 5 Refills, Maintenance, 05/17/21 7:35:00 EST, [facility], 1 tablet By Mouth [...] 2 Refills, Maintenance, 04/24/20 11:22:00 EST, Tablet, [facility]174, 163, cm, 02/14/20 10:48:00 EST, [...] Gm, 11 Refills, Maintenance, 09/25/20 13:18:00 EDT, [facility], 163, cm, 09/25/20 12:08:00 [...] 0 Refills, Maintenance, 06/24/20 0:38:00 EDT, Capsule, [facility], Partial fill upon patient [...] Gm, 11 Refills, Maintenance, 06/25/20 14:10:00 EDT, [facility], 164, cm, 06/24/20 0:51:00 [...]
--- OUTSIDE RECORDS SUMMARY | 2023-03-22 10:39 | XMS_ITS | Continuity of Care Document ---
Author Name Unknown Organization [facility] Address [address] [place] [address]- Care Team Providers Care Supervisor Gluing Name Role Phone Jane ECHEVERRIA, Tenisha Primary Care Physician [phone] [place] [facility] [place](s[place] 07/02/20 - 08/01/[address] [address]- Allergies, Adverse Reactions, Alerts Substance Reaction Severity Status codeine headache Active penicillins 1 Active Arava Active Zestril cough Active 1Tolerates cefepime Medications albuterol-ipratropium 3 mg-0.5 [...] 06/09/20 11:25:00 EST, Route to Pharmacy Electronically, [facility] 2174, 163, cm, 02/14/20 10:48:00 EST, Height, 99, kg, 09/19/19 18:05:00 EDT, Dry Weight Start Date: 06/09/20 Stop Date: 06/04/21 Status: Ordered digoxin 0.125 mg oral tablet 0.125 mg, 1, tablet, By Mouth, Daily, # 30 tablet, Refills 2, Tot. Refills 2, Maintenance, 07/23/2114:03:00 EDT, Route to Pharmacy Electronically, [facility], Partial fill upon patient request if the prescription is for a schedule II opioi... Start Date: 07/23/20 Stop Date: 10/21/20 Status: Ordered Eliquis 5 mg oral tablet 1 tablet = 5 mg, By Mouth, 2 times a day, # 60 tablet, 0 Refills, Maintenance, 07/07/20 16:24:00 EDT, Tablet, [facility], Partial fill upon patient request if the prescription is for a schedule II opioid drug., 163, cm, 07/07/20 15:53:00 ED... Start Date: 07/07/20 Status: Ordered Entresto 49 mg-51 mg oral tablet 1 tablet, By Mouth, 2 times a day, # 180 tablet, 3 Refills, Maintenance, 12/06/19 9:20:00 EDT, Tablet, [facility], 1 tablet By Mouth [...] 2 Refills, Maintenance, 04/24/20 11:22:00 EST, Tablet, [facility], 163, cm, 02/14/20 [...] mL, 0 Refills, Maintenance, 06/26/20 22:05:00 EDT, [place], Partial fill upon patient request if the [...] Gm, 0 Refills, Maintenance, 04/13/20 16:46:00 EST, [facility], 163, cm, 02/14/20 10:48:00 EST, Height, 99, kg, 09/19/19 18:05:00 EDT, Dry Weight Start Date: 04/13/20 Stop Date: 05/13/20 Status: Ordered Tessalon Perles 100 mg oral capsule 1 capsule = 100 mg, By Mouth, 3 times a day, PRN Cough, # 14 capsule, 0 Refills, Maintenance, 06/24/20 0:38:00 EDT, Capsule, [facility], Partial fill upon patient request if the prescription is for a schedule II opioid drug., 164, cm, 06/23... Start Date: 06/24/20 Status: Ordered Tylenol 8 Hour 650 mg oral tablet, extended release See Instructions, 1 tablet By Mouth NEEDED, 0 Refills, Maintenance, 09/20/18 12:56:42 EDT Start Date: 09/20/18 Status: Ordered Ventolin HFA 108 mcg/inh inhalation aerosol with adapter 2 puffs, Inhalation, 4 times a day, # 18 Gm, 11 Refills, Maintenance, 06/25/20 14:10:00 EDT, [facility], 164, cm, 06/24/20 0:51:00 EDT, Height, 101.5, kg, 06/24/20 0:51:00 EDT, Dry Weight Start Date: 06/25/20 Stop Date: 07/25/20 Status: Ordered warfarin 5 mg oral tablet [...]
--- NOTE | 2023-03-22 10:40 | A.OFFVIS_ITS ---
Intake Vital Signs 03/22/23 10:41 Height 5 ft 3 in Weight 201 lb 15.095 oz BMI 35.8 BP 112/60 Blood Pressure Location Rt brachial Position Sitting Pulse 67 Pulse Source Pulse Oximeter Pulse Oximetry (%) 96 Oxygen Delivery Method Room Air Intake Visit Reasons: PSO Intake Note: Pt last seen 01/06/23 presents today for follow up and test results. Video Tape Transferrer Required: No Accompanied by: Self / Same As Patient Allergies leflunomide [Arava] Allergy (Intermediate, Verified 03/22/23 10:43) swollen lisinopril [Zestril] Allergy (Intermediate, Verified 03/22/23 10:43) Cough penicillin V Allergy (Intermediate, Verified 03/22/23 10:43) Rash Bees Allergy (Intermediate, Uncoded 01/06/23 14:12) Anaphylaxis Medication List - Last Reconciled 03/22/23 by Ken Currie MD albuterol sulfate 90 mcg/actuation (Ventolin HFA) inhalation albuterol sulfate 90 mcg/actuation (Ventolin HFA) 1 inh inhalation BID amlodipine 10 mg PO DAILY apixaban (Eliquis) 5 mg PO BID carvedilol 25 mg PO BID dapagliflozin propanediol (Farxiga) mg PO DAILY fluticasone furoate-vilanterol 100-25 mcg/dose (Breo Ellipta) 1 ea inhalation DAILY fluticasone furoate-vilanterol 100-25 mcg/dose (Breo Ellipta) 1 inh inhalation DAILY folic acid 1 mg PO DAILY insulin NPH isoph U-100 human (Novolin N NPH U-100 Insulin isophane) units subcut methotrexate sodium 12.5 mg (5 x 2.5 mg) PO QWEEK nystatin topical omeprazole 20 mg PO DAILY sacubitril-valsartan 97-103 mg (Entresto) tabs PO simvastatin 10 mg PO DAILY tiotropium bromide (Spiriva with HandiHaler) 1 cap inhalation DAILY torsemide mg PO DAILY HPI HPI Comments History of Present Illness Details 77-year-old female with psoriasis return s for follow-up. She has been on methotrexate for the last 2 months. Please she is having some hair loss from methotrexate but not significant. Believes that her psoriasis rash is improving but did not completely clear Initial history: This is a 77-year-old female with psoriasis and psoriatic arthritis who presents for follow-up. She was last evaluated by Dr. Cueto 10/2020. She states that she started having psoriasis in her early teens, she develops psoriatic arthritis 10-15 years ago. She stated that when she was started on methotrexate her psoriasis rash resolved completely. She would have swollen and tender joints. Over the last year or so patient has been having right shoulder stiffness and bilateral thumb pain. Her psoriasis has come back and she has rashes behind her right ear, her lower back and her umbilicus. She does not use a steroid cream [facility] Medical History (Updated 03/22/23 @ 12:34 by Ken Currie MD) Congestive cardiac failure Psoriasis Pacemaker Surgical History History of knee joint replacement Hx of cholecystectomy H/O: hysterectomy Family History Father CVD (cardiovascular disease) Mother Uterine cancer Social History Alcohol intake: current Alcohol intake frequency: holidays/special occasions only Patient Tobacco Use Status: Never used Tobacco Review of Systems Musc Reports arthralgias, Denies joint swelling and Reports stiffness Skin/Breast Reports rash Physical Exam Vital Signs: Last Vital Signs Pulse 67 03/22/23 10:41 BP 112/60 03/22/23 10:41 Pulse Ox 96 03/22/23 10:41 Oxygen Delivery Method Room Air 03/22/23 10:41 BMI result Body Mass Index 35.8 Const General: cooperative, no acute distress and well developed Orientation/consciousness: patient oriented x3 HEENT Head: Yes normal to inspection Resp Effort & Inspection: normal respiratory effort and able to speak in complete sentences Auscultation: clear to auscultation bilaterally Skin Other: Patches of psoriasis on her lower back, improved compared to last visit. Psoriasis behind right ear has resolved Small patch of psoriasis on abdomen and on umbilicus Neuro General: patient oriented x3 Extrem Other: No synovitis on exam. Bilateral Heberden's nodes Assessment & Plan Assessment & Plan (1) Psoriasis: Code(s): L40.9 - Psoriasis, unspecified Plan: This is a 77-year-old female with psoriasis? who presents for follow-up.? States that she was diagnosed with psoriasis in her early teens and psoriatic arthritis 10-15 years ago.? Her psoriasis responded very well to methotrexate 15 mg weekly.? She stated however that she discontinued methotrexate due to hair loss, which she grew after discontinuation.?? Patient has been taking methotrexate 12.5 mg weekly for the last 2 months with improvement in her psoriasis. Continue methotrexate 12.5 mg weekly. We can consider adding Otezla if there is no significant improvement Labs before next visit in 3 months (2) long-term methotrexate user: Code(s): Z79.899 - Other intermediate accountant (current) drug therapy Plan: Monitor safety labs Plan I spent 26 minutes reviewing patient's chart, evaluating patient, ordering diagnostic workup, counseling patient and documenting in the chart Orders: Orders Complete Blood Count Auto Diff 3 Months Z79.899 - Other care home (current) drug therapy Comprehensive Met. Panel 3 Months Z79.899 - Other care home (current) drug therapy Medications: Refilled folic acid 1 mg PO DAILY 180 tabs 1RF methotrexate sodium 12.5 mg (5 x 2.5 mg) PO QWEEK 80 tabs 0RF L40.50 - Arthropathic psoriasis, unspecified Coding Level of Care Code Est Pt Level 4 (65238) Diagnoses Psoriasis L40.9 intermediate accountant methotrexate user Z79.899
--- OUTSIDE RECORDS SUMMARY | 2023-03-22 10:40 | XMS_ITS | Continuity of Care Document ---
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 Refills 11, Maintenance, 01/12/22 12:09:00 EDT, Aerosol, Route to Pharmacy Electronically, [id number], [facility], 163, cm, 01/12/22 10:50:00 EDT,... Start Date: 01/12/22 Stop Date: 01/07/23 Status: Ordered amiodarone 200 mg oral tablet 200 mg, 1, tablet, By Mouth, Daily, # 30 tablet, Refills 1, Tot. Refills 1, Maintenance, 02/21/22 12:41:00 EST, Route to Pharmacy Electronically, [facility], Partial fill upon patient request if the prescription is for a schedule II opioid... Start Date: 02/21/22 Stop Date: 04/22/22 Status: Ordered amLODIPine 10 mg oral tablet 10 mg, 1, tablet, By Mouth, Daily, # 90 tablet, Refills 11, Tot. Refills 11, Maintenance, 07/13/21 11:13:00 EDT, Route to Pharmacy Electronically, [facility], Partial fill upon patient request if the prescription is for a schedule II opioid... Start Date: 07/13/21 Status: Ordered Breo Ellipta 100 mcg-25 mcg/inh inhalation powder 1 puffs, Inhalation, Daily, # 1 each, 11 Refills, Maintenance, 01/12/22 12:08:00 EDT, Inhaler, [facility], Partial fill upon patient request if the prescription is for a schedule II opioiddrug., 1 puffs Inhalation Daily,x30 days, 163, cm,... Start Date: 01/12/22 Stop Date: 01/07/23 Status: Ordered carvedilol 25 mg oral tablet 25 mg, 1, tablet, By Mouth, 2 times a day, # 180 tablet, Refills 11, Tot. Refills 11, Maintenance, 07/13/21 11:12:00 EDT, Route to Pharmacy Electronically, [facility] 2[facility], Dose increase, 163, cm, 07/13/21 10:43:00 EDT, Height, 93.5, kg, ... Start Date: 07/13/21 Status: Ordered dapagliflozin 5 mg oral tablet 1 tablet = 5 mg, By Mouth, Daily, # 30 tablet, 11 Refills, Maintenance, 12/15/21 12:12:00 EDT, Tablet, [facility], this is a dose [...] 11 Refills, Maintenance, 10/25/21 15:10:00 EDT, Tablet, [facility], Partial fill upon patient [...] 2 Refills, Maintenance, 04/24/20 11:22:00 EST, Tablet, [facility], 163, cm, 02/14/20 10:48:00 [...] each, 11 Refills, Maintenance, 01/12/22 12:08:00 EDT, [facility], 163, cm, 01/12/22 10:50:00 EDT, Height, 87.3, kg, 08/12/21 7:07:00 EDT, Dry Weight Start Date: 01/12/22 Stop Date: 01/07/23 Status: Ordered spironolactone 25 mg oral tablet 25 mg, 1, tablet, By Mouth, Daily, # 90 tablet, Refills 11, Tot. Refills 11, Maintenance, 10/25/21 15:11:00 EDT, Route to Pharmacy Electronically, [facility] 2[facility], Dose increase, 163, cm, 10/25/21 14:46:00 EDT, Height, 87.3, kg, 08/12/21 7:07:00... Start Date: 10/25/21 Status: Ordered torsemide 20 mg oral tablet 1 tablet = 20 mg, By Mouth, Daily, # 90 tablet, 11 Refills, Maintenance, 07/13/21 11:14:00 EDT, Tablet, [facility], Partial fill upon patient [...] Team Personnel Name: Aura Fox RN Position: [facility] ED RN W/OE and Tasks Member Role: Primary Care Nurse Name: Opal Gonzalez RN Position: S RN Member Role: Primary Care Nurse Name: Tenisha Lara MD Position: [facility] General Pediatrics MD Member Role: PCP Address: Address: [address] [place] [id number] Name: Bettina Moran RN Position: [facility] RN Member Role: Primary Care Nurse Name: Britany Fuentes RN Position: [facility] RN Member Role: Primary Care Nurse Name: Jenaro Evans MD Position: [facility] Cardiology MD Member Role: Lifetime Consulting Physician Address: Address: [address] [place] [address], [address] [place] [address] [place] [address]- Name: Sandra Dubois RN Position: [facility] RN Member Role: Primary Care Nurse Name: Taylor Lopes RN Position: S RN Member Role: Primary Care Nurse Name: Haresh Deal RN Position: [facility] SN RN Member Role: Primary Care Nurse Name: Taina Lambert RN Position: S RN Member Role: Primary Care Nurse Name: Teri Azevedo RN Position: [facility] SN RN Member Role: Primary Care Nurse Name: Zoie Abdalla RN Position: S RN Member Role: Primary Care Nurse Care Team Related Persons Name: BESSIE ORTIZ Address: home [address] [place] [address] Name: SAMANTHA KHAN Address: home [address] [place] [address]
--- OUTSIDE RECORDS SUMMARY | 2023-03-22 10:40 | XMS_ITS | Continuity of Care Document ---
Author Name Unknown Organization [facility] Address [address] [place] [address]- Care Team Providers Care Ic Designer Gate Arrays Name Role Phone Tenisha Lara MD Primary Care Physician [phone] Encounter [facility] ACCT R [id number] Date(s): 01/01/23 - 01/31/23 [facility] [address] [place] [address]- Attending Physician: Admtr, Fartun Admitting Physician: Admtr, Ar8 Referring Physician: Admtr, [...] 12:09:00 EDT, Aerosol, Route to Pharmacy Electronically, [id number], [facility], 163, cm, 01/12/22 10:50:00 [...] 10/19/22 11:20:00 EDT, Route to Pharmacy Electronically, [facility], Partial fill upon patient request if the prescription is for a schedule II opioid d... Start Date: 10/19/22 Status: Ordered Breo Ellipta 100 mcg-25 mcg/inh inhalation powder 1 puffs, Inhalation, Daily, # 1 each, 11 Refills, Maintenance, 01/12/22 12:08:00 EDT, Inhaler, [facility], Partial fill upon patient request if the prescription is for a schedule II opioiddrug., 1 puffs Inhalation Daily,x30 days, 163, cm,... Start Date: 01/12/22 Stop Date: 01/07/23 Status: Ordered carvedilol 25 mg oral tablet 50 mg, 2, tablet, By Mouth, 2 times a day, # 360 tablet, Refills 11, Tot. Refills 11, Maintenance, 07/01/22 11:12:00 EDT, Route to Pharmacy Electronically, [facility], Dose increase, 163, cm, 03/21/22 12:14:00 EST, Height, 87.3, kg, ... Start Date: 07/01/22 Stop Date: 06/15/25 Status: Ordered dapagliflozin 10 mg oral tablet 1 tablet = 10 mg, By Mouth, Daily, # 90 tablet, 11 Refills, Maintenance, 03/21/22 13:01:00 EST, Tablet, [facility], Dose increase, 163, cm, [...] tablet, 5 Refills, Maintenance, 12/21/22 12:30:00 EDT, [facility], 30, Take 1 tablet by [...] 2 Refills, Maintenance, 04/24/20 11:22:00 EST, Tablet, [facility], 163, cm, 02/14/20 10:48:00 [...] each, 11 Refills, Maintenance, 01/12/22 12:08:00 EDT, [facility], 163, cm, 01/12/22 10:50:00 EDT, Height, 87.3, kg, 08/12/21 7:07:00 EDT, Dry Weight Start Date: 01/12/22 Stop Date: 01/07/23 Status: Ordered spironolactone 50 mg oral tablet 1 tablet = 50 mg, By Mouth, Daily, dose increase, # 90 tablet, 3 Refills, Maintenance, 05/05/22 11:55:00 EST, [facility], 163, cm, 03/21/22 12:14:00 EST, Height, 87.3, kg, 08/12/21 7:07:00EDT, Dry Weight Start Date: 05/05/22 Stop Date: 04/30/23 Status: Ordered torsemide 20 mg oral tablet 1 tablet = 20 mg, By Mouth, Daily, # 90 tablet, 11 Refills, Maintenance, 07/13/21 11:14:00 EDT, Tablet, [facility], Partial fill upon patient [...] Team Personnel Name: Tenisha Lara MD Position: [facility] Physician - Pediatrics Member Role: PCP Address: Address: [address] [place] [id number] Name: Bettina Moran RN Position: S RN Member Role: Primary Care Nurse Name: Britany Fuentes RN Position: [facility] RN Member Role: Primary Care Nurse Name: Nathan ECHEVERRIA, Jenaro Hinojosa Position: [facility] Cardiology MD Member Role: Lifetime Consulting Physician Address: Address: [address] [place] [address] [place] [address] Name: Sandra Dubois RN Position: S RN Member Role: Primary Care Nurse Name: Taylor Lopse RN Position: S RN Member Role: Primary Care Nurse Name: Haresh Deal RN Position: [facility] [...] Persons Name: BESSIE ORTIZ Address: home [address] [place] [address] Name: SAMANTHA KHAN Address: home [address] [place] [address] Name: CARMEN WORTHY
--- OUTSIDE RECORDS SUMMARY | 2023-03-22 10:40 | XMS_ITS | Continuity of Care Document ---
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 Name Role Phone Tenisha Lara MD Primary Care Physician [phone] Encounter [facility] ACCT R [id number] Date(s): 11/19/20 - 12/19/20 [facility] [address] [place] [address]- [place] Allergies, Adverse Reactions, Alerts Substance Reaction [...] to Pharmacy Electronically, [facility], Partial fill upon patient request if the [...] 06/09/20 11:25:00 EST, Route to Pharmacy Electronically, [facility], 163, cm, 02/14/20 10:48:00 EST, Height, 99, kg, 09/19/19 18:05:00 EDT, Dry Weight Start Date: 06/09/20 Stop Date: 06/04/21 Status: Ordered dapagliflozin 5 mg oral tablet 1 tablet = 5 mg, By Mouth, Daily, # 90 tablet, 0 Refills, Maintenance, 10/27/20 11:53:00 EDT, Tablet, [facility], [facility] 3, Partial fill upon patient request [...] 2 Refills, Maintenance, 04/24/20 11:22:00 EST, Tablet, [facility], 163, cm, 02/14/20 10:48:00 EST, [...]
--- OUTSIDE RECORDS SUMMARY | 2023-03-22 10:40 | XMS_ITS | Continuity of Care Document ---
Author Name Unknown Organization [facility] ter Address [address] [place] [address]- Care Team Providers Care Physician [facility] Name Role Phone Tenisha Lara MD Primary Care Physician [phone] [id number] Date(s): 05/20/19 - 05/20/[address] [address]- [facility] Attending Physician: Tenisha Lara MD Allergies, Adverse Reactions, Alerts Substance Reaction Severity Status codeine headache Active penicillins 1 Active Arava Active Zestril cough Active 1Tolerates cefepime Medications Acid Disease Management Nurse See Instructions, 1 TABLET NEEDED, 0 Refills, Maintenance, 09/20/18 12:57:51 EDT Start Date: 09/20/18 Status: Ordered carvedilol 25 mg oral tablet 1, tablet, By Mouth, 2 times a day, # 60 each, Refills 0, Tot. Refills 0, Maintenance, 05/08/19 12:04:00 EST, Route to Pharmacy Electronically, [facility], 163, cm, 03/14/19 14:03:00 EST, Height, 93.5, kg, 11/14/18 20:45:00 EDT, Dry Weight Start Date: 05/08/19 Status: Ordered Coumadin 1 mg oral tablet See Instructions, 1 tablet By Mouth DIRECTED, 0 Refills, Maintenance, 09/20/18 12:55:34 EDT Start Date: 09/20/18 Status: Ordered Entresto 97 mg-103 mg oral tablet 1 tablet, By Mouth, 2 times a day, # 60 tablet, 0 Refills, Maintenance, 04/30/19 16:03:00 EST, Tablet, [facility], 1 tablet By Mouth 2 times a day, 163, cm, 03/14/19 14:03:00 EST, Height, 93.5, kg, 11/14/18 20:45:00 EDT, Dry Weight Start Date: 04/30/19 Status: Ordered folic acid 1 mg oral [...] EDT, Injection Start Date: 12/01/17 Status: Ordered Insulin NPH = 25 units, Subcutaneous Infusion, Daily at bedtime, 0 Refills, Maintenance, 11/14/18 21:24:09 EDT Start Date: 11/14/18 Status: Ordered Klor-Con By Mouth, 2 times [...] Tablet Start Date: 10/12/18 Status: Ordered simvastatin 10 mg oral tablet 10 mg, 1, tablet, By Mouth, Daily at bedtime, Refills 0, Maintenance, 03/06/18 14:21:37 EST Start Date: 03/06/18 Status: Ordered Spiriva Respimat 1.25 mcg/inh inhalation aerosol 2 puffs, Inhalation, Daily, # 1 each, 11 Refills, Maintenance, 01/03/19 11:44:26 EDT, Aerosol Start Date: 01/03/19 Stop Date: 12/29/19 Status: Ordered Symbicort 160mcg/4.5mcg Inhaler 2, puffs, Inhalation, 2 times a day, # 10.2 Gm, Refills 11, Tot. Refills 11, Maintenance, 11/27/18 15:26:56 EDT, Aerosol, Route to Pharmacy Electronically, [id number], [facility] Start Date: 11/27/18 Status: Ordered Tylenol 8 Hour 650 mg [...] Active Diabetes mellitus - adult onset(Confirmed) Active Implantable defibrillator(Confirmed) Active Left bundle branch block(Confirmed) Active Mild asthma(Confirmed) Active Primary cardiomyopathy(Confirmed) Active Phlebitis and thrombophlebit is of superficial veins of upper extremities(Confirmed) Active Social History Social History Type Response Smoking Status Never smoker entered on: 12/15/17 Sex
--- OUTSIDE RECORDS SUMMARY | 2023-03-22 10:40 | XMS_ITS | Continuity of Care Document ---
Author Name Unknown Organization [facility] ter Address [address] [place] [address]- Care Team Providers Care Clarifier Operator Helper Name Role Phone Jane ECHEVERRIA, Tenisha Primary Care Physician Encounter [facility] Date(s): 06/27/20 - 06/29/[address] [address]- Encounter Diagnosis COVID-19(Final) - 06/26/20 Discharge Disposition: A-D/C Home Attending Physician: Marina ECHEVERRIA, Byron Kapoor Admitting Physician: Heber Brock DO Referring Physician: Not on Staff, Referring MD [...] fax res... Start Date: 06/29/20 Status: Ordered carvedilol 25 mg oral tablet 1, tablet, By Mouth, 2 times a day, # 180 tablet, Refills 3, Tot. Refills 3, Maintenance, 06/09/20 11:25:00 EST, Route to Pharmacy Electronically, [facility], 163, cm, 02/14/20 10:48:00 EST, Height, 99, kg, 09/19/19 18:05:00 EDT, Dry Weight Start Date: 06/09/20 Stop Date: 06/04/21 Status: Ordered carvedilol 25 mg oral tablet 25 mg, Tablet, By Mouth, 06/29/20 9:00:00 EDT Start Date: 06/29/20 Stop Date: 06/29/20 Status: Completed digoxin 0.125 mg oral tablet 0.125 mg, 1, tablet, By Mouth, Daily, # 30 tablet, Refills 0, Tot. Refills 0, Maintenance, 06/29/2113:01:00 EDT, Route to Pharmacy Electronically, [facility], Partial fill upon patient request if the prescription is for a schedule II opioi... Start Date: 06/29/20 Status: Ordered Entresto 49 mg-51 mg oral tablet 1 tablet, By Mouth, 2 times a day, # 180 tablet, 3 Refills, Maintenance, 12/06/19 9:20:00 EDT, Tablet, [facility], 1 tablet By Mouth [...] 14:21:00 EST Start Date: 03/06/18 Status: Ordered guaiFENesin 100 mg/5 mL oral liquid 10 mL = 200 mg, By Mouth, Every 6 hours, PRN Cough, for 14 days, # 240 mL, 0 Refills, Acute 07/13/20 14:01:00 EDT, 06/29/20 14:01:00 EDT, Syrup, [facility], Partial fill upon patient request if the prescription is for a schedule II opioid d... Start Date: 06/29/20 Stop Date: 07/13/20 Status: Ordered Imdur 60 mg oral tablet, [...] 2 Refills, Maintenance, 04/24/20 11:22:00 EST, Tablet, [facility], 163, cm, 02/14/20 10:48:00 [...] mL, 0 Refills, Maintenance, 06/26/20 22:05:00 EDT, [place], Partial fill upon patient request if the [...] Gm, 0 Refills, Maintenance, 04/13/20 16:46:00 EST, [facility], 163, cm, 02/14/20 10:48:00 EST, Height, 99, kg, 09/19/19 18:05:00 EDT, Dry Weight Start Date: 04/13/20 Stop Date: 05/13/20 Status: Ordered Tessalon Perles 100 mg oral capsule 1 capsule = 100 mg, By Mouth, 3 times a day, PRN Cough, # 14 capsule, 0 Refills, Maintenance, 06/24/20 0:38:00 EDT, Capsule, [facility], Partial fill upon patient [...] Gm, 11 Refills, Maintenance, 06/25/20 14:10:00 EDT, [facility], 164, cm, 06/24/20 0:51:00 [...] Exam Date Time Procedure Performing Provider Status 06/26/20 5:21 PM Chest Portable Carmine Richey; Bibi ( Verified) Notes: (Chest Portable) Reason For Exam: Chest Pain;Other: RESULT: Chest Portable Chest Portable Hx of Present Illness: pt comes in reporting she has been covid + since the 12 of june but has not seemed to get better, reports having increase HR, + cough and sob with decrease PO; Reason: Other:; Chest Pain; Clinical Question(s): CHF COMPARISON: Multiple priors with the most recent 06/23/2020 FINDINGS: LINES AND TUBES: Triple-lead left subclavian pacer/AICD wires are intact. LUNGS AND PLEURA: Slight blunting of both costophrenic angle suggesting trace pleural effusions, unchanged. Minimal atelectasis at the lung bases unchanged. No pneumothorax. HEART, MEDIASTINUM AND NATHALIA: Heart is at the upper limits of normal for size. Aorta is calcified. BONES AND SOFT TISSUES: No acute abnormality. Multiple surgical clips in the right upper quadrant. IMPRESSION: Trace pleural effusions and borderline cardiac enlargement. No interval change. WSN: [id number] Ordering Physician: Scarlet Hayden Dictated By: Haresh Mcnamara MD Dictated Date/Time: 06/26/20 5:30 pm Reviewed By: Haresh Mcnamara MD Signed By: Haresh Mcnamara MD Signed Date/Time: 06/26/20 5:30 pm Transcribed By: RONALD Transcribed Date/Time: 06/26/20 5:29 pm Vital Signs Most recent to oldest [Reference Range]: 1 2 3 Height 163 cm (06/29/20 12:14 PM) 163 cm (06/29/20 7:54 AM) 163 cm (06/29/20 4:14 AM) Weight 102.3 kg (06/26/20 9:43 PM) Oxygen Saturation [94-100 %] 97 % (06/29/20 12:14 PM) 98 % (06/29/20 7:54 AM) 96 % (06/29/20 4:14 AM) Pulse Rate [55-90 bpm] 77 bpm (06/29/20 12:14 PM) 87 bpm (06/29/20 9:03 AM) 80 bpm (06/29/20 7:54 AM) Body Mass Index [18.5-24.99] 38.5 *>HHI* (06/26/20 9:43 PM) Blood Pressure [90-138/55-84 mm Hg] 113/72mm Hg (06/29/20 12:14 PM) 125/62mm Hg (06/29/20 9:03 AM) 87/64mm Hg *L* (06/29/20 7:54 AM) Respiratory Rate [16-30 br/min] 18 br/min (06/29/20 12:14 PM) 18 br/min (06/29/20 9:00 AM) 18 br/min (06/29/20 7:54 AM) Temperature [96.8-100.4 DegF] 97.4 DegF (06/29/20 12:14 PM) 97.5 DegF (06/29/20 7:54 AM) 98.4 DegF (06/29/20 4:14 AM) Mode of Delivery (Oxygen) Room air (06/29/20 12:14 PM) Room air (06/29/20 7:54 AM) Room air (06/29/20 4:14 AM) Blood pressure sites Arm, right (06/29/20 12:14 PM) Arm, right (06/29/20 7:54 AM) Arm, right (06/29/20 4:14 AM) Temperature Route Oral (06/29/20 12:14 PM) Oral (06/29/20 7:54 AM) Oral (06/29/20 4:14 AM) Dry Weight 102.3 kg (06/26/20 9:43 PM) Weight Obtained Via Patient/family state d (06/26/20 9:43 PM) Dry Weight Obtained Via Patient/family s tated (06/26/20 9:43 PM) Social History Social History Type Response Smoking Status Never (less than 100 in lifetime) entered on: 09/19/19 Sex
--- OUTSIDE RECORDS SUMMARY | 2023-03-22 10:40 | XMS_ITS | Continuity of Care Document ---
Author Name Unknown Organization [facility] Address [address] [place] [address]- Care Team Providers Care Criminal Profiler Name Role Phone Tenisha Lara MD Primary Care Physician [phone] Encounter [facility] Date(s): 01/16/23 - 02/15/23 [facility] [address] [place], [place] [address] Attending Physician: Admtr, Ar8 Admitting Physician: Admtr, [...] 12:09:00 EDT, Aerosol, Route to Pharmacy Electronically, [id number], [facility], 163, cm, 01/12/22 10:50:00 EDT,... [...] 10/19/22 11:20:00 EDT, Route to Pharmacy Electronically, [facility], Partial fill upon patient request if the prescription is for a schedule II opioid d... Start Date: 10/19/22 Status: Ordered Breo Ellipta 100 mcg-25 mcg/inh inhalation powder 1 puffs, Inhalation, Daily, # 1 each, 11 Refills, Maintenance, 01/12/22 12:08:00 EDT, Inhaler, [facility], Partial fill upon patient request if the prescription is for a schedule II opioiddrug., 1 puffs Inhalation Daily,x30 days, 163, cm,... Start Date: 01/12/22 Stop Date: 01/07/23 Status: Ordered carvedilol 25 mg oral tablet 50 mg, 2, tablet, By Mouth, 2 times a day, # 360 tablet, Refills 11, Tot. Refills 11, Maintenance, 07/01/22 11:12:00 EDT, Route to Pharmacy Electronically, [facility], Dose increase, 163, cm, 03/21/22 12:14:00 EST, Height, 87.3, kg, ... Start Date: 07/01/22 Stop Date: 06/15/25 Status: Ordered dapagliflozin 10 mg oral tablet 1 tablet = 10 mg, By Mouth, Daily, # 90 tablet, 11 Refills, Maintenance, 03/21/22 13:01:00 EST, Tablet, [facility], Dose increase, 163, cm, 03/21/22 [...] tablet, 5 Refills, Maintenance, 12/21/22 12:30:00 EDT, [facility], 30, Take 1 tablet by [...] Maintenance, 04/24/20 11:22:00 EST, Tablet, [facility], 163, cm, 02/14/20 10:48:00 EST, [...] each, 11 Refills, Maintenance, 01/12/22 12:08:00 EDT, [facility], 163, cm, 01/12/22 10:50:00 EDT, Height, 87.3, kg, 08/12/21 7:07:00 EDT, Dry Weight Start Date: 01/12/22 Stop Date: 01/07/23 Status: Ordered spironolactone 50 mg oral tablet 1 tablet = 50 mg, By Mouth, Daily, dose increase, # 90 tablet, 3 Refills, Maintenance, 05/05/22 11:55:00 EST, [facility], 163, cm, 03/21/22 12:14:00 EST, Height, 87.3, kg, 08/12/21 7:07:00EDT, Dry Weight Start Date: 05/05/22 Stop Date: 04/30/23 Status: Ordered torsemide 20 mg oral tablet 1 tablet = 20 mg, By Mouth, Daily, # 90 tablet, 11 Refills, Maintenance, 07/13/21 11:14:00 EDT, Tablet, [facility], Partial fill upon patient request [...] Team Personnel Name: Tenisha Lara MD Position: [facility] Physician - Pediatrics Member Role: PCP Address: Address: [address] [place] [address]- Name: Bettina Moran RN Position: S RN Member Role: Primary Care Nurse Name: Britany Fuentes RN Position: [facility] RN Member Role: Primary Care Nurse Name: Jenaro Evans MD Position: [facility] Cardiology MD Member Role: Lifetime Consulting Physician Address: Address: [address] [place] [address] [place] [address]- Name: Sandra Dubois RN Position: S RN Member Role: Primary Care Nurse Name: Taylor Lopes RN Position: S RN Member Role: Primary Care Nurse Name: Haresh Deal RN Position: [facility] SN RN Member Role: Primary Care Nurse Name: Taina Lambert RN Position: S RN Member Role: Primary Care Nurse Name: Teri Azevedo RN Position: [facility] SN RN Member Role: Primary Care Nurse Name: Zoie Abdalla RN Position: S RN Member Role: Primary Care Nurse Care Team Related Persons Name: BESSIE ORTIZ Address: home [address] [place] [address] Name: SAMANTHA KHAN Address: home [address] [place] [address] Name: CARMEN WORTHY
--- OUTSIDE RECORDS SUMMARY | 2023-03-22 10:40 | XMS_ITS | Continuity of Care Document ---
Author Name Unknown Organization [facility] ter Address [address] [place] [address]- Care Team Providers Care Hand Umbrella Tipper Name Role Phone Tenisha Lara MD Primary Care Physician Encounter [facility] Date(s): 04/02/19 - 04/02/[address] [address]- [facility] Attending Physician: Tenisha Lara MD Allergies, Adverse Reactions, Alerts Substance Reaction Severity Status codeine headache Active penicillins 1 Active Arava Active Zestril cough Active 1Tolerates cefepime Medications Acid Donor Relations Associate See Instructions, 1 TABLET NEEDED, 0 Refills, Maintenance, 09/20/18 12:57:51 EDT Start Date: 09/20/18 Status: Ordered carvedilol 25 mg oral tablet 25 mg, 1, tablet, By Mouth, 2 times a day, # 60 tablet, Refills 0, Tot. Refills 0, Maintenance, 01/09/19 15:44:00 EDT, Route to Pharmacy Electronically, [id number], [facility] Start Date: 01/09/19 Status: Ordered Coumadin 1 mg oral tablet See Instructions, 1 tablet By Mouth DIRECTED, 0 Refills, Maintenance, 09/20/18 12:55:34 EDT Start Date: 09/20/18 Status: Ordered Entresto 24 mg-26 mg oral tablet See Instructions, # 60 tablet, TAKE 1 TABLET BY MOUTH TWICE DAILY, [facility] Start Date: 02/18/19 Status: Ordered Entresto 49 mg-51 mg oral tablet 1 tablet, By Mouth, 2 times a day, # 60 tablet, 0 Refills, Maintenance, 03/12/19 7:53:00 EST, Tablet, 1 tablet By Mouth 2 times a day, 163, cm, 03/11/19 12:59:20 EST, Height, 93.5, kg, 11/14/18 20:45:38 EDT, Dry Weight Start Date: 03/12/19 Status: Ordered folic acid 1 mg oral [...] 12:56:26 EDT Start Date: 09/20/18 Status: Ordered losartan 50 mg oral tablet 25 mg, 0.5, tablet, By Mouth, Daily, Refills 0, Maintenance, 03/06/18 14:19:46 EST Start Date: 03/06/18 Status: Ordered methotrexate 2.5 mg oral tablet [...] 15:26:56 EDT, Aerosol, Route to Pharmacy Electronically, [id number], [facility] Start Date: 11/27/18 Status: Ordered Tylenol 8 [...]
--- OUTSIDE RECORDS SUMMARY | 2023-03-22 10:40 | XMS_ITS | Continuity of Care Document ---
Author Name Unknown Organization [facility] Address [address] [place] [address]- Care Team Providers Care Food Services Director Name Role Phone Tenisha Lara MD Primary Care Physician Encounter [facility] Date(s): 05/05/22 - 06/04/22 [facility] [address] [place] [address]- Allergies, Adverse Reactions, Alerts Substance Reaction Severity Status codeine headache Active penicillins 1 Active Arava Active Zestril cough Active Augmentin Active Bee Stings Active 1Tolerates cefepime Medications albuterol CFC free 90 mcg/inh inhalation aerosol 2, puffs, Inhalation, 4 times a day, PRN, # 18 Gm, Refills 11, Tot. Refills 11, Maintenance, 01/12/22 12:09:00 EDT, Aerosol, Route to Pharmacy Electronically, [id number], [facility], 163, cm, 01/12/22 10:50:00 EDT,... Start Date: 01/12/22 Stop Date: 01/07/23 Status: Ordered amiodarone 200 mg oral tablet 200 mg, 1, tablet, By Mouth, Daily, # 90 tablet, Refills 2, Tot. Refills 2, Maintenance, 05/02/22 14:32:00 EST, Route to Pharmacy Electronically, [facility], 163, cm, 03/21/22 12:14:00 EST, Height, 87.3, kg, 08/12/21 7:07:00 EDT, Dry Weight Start Date: 05/02/22 Stop Date: 01/27/23 Status: Ordered amLODIPine 10 mg oral tablet 10 mg, 1, tablet, By Mouth, Daily, # 90 tablet, Refills 11, Tot. Refills 11, Maintenance, 07/13/21 11:13:00 EDT, Route to Pharmacy Electronically, [facility], Partial fill upon patient request if the prescription is for a schedule II opioid... Start Date: 07/13/21 Status: Ordered Breo Ellipta 100 mcg-25 mcg/inh inhalation powder 1 puffs, Inhalation, Daily, # 1 each, 11 Refills, Maintenance, 01/12/22 12:08:00 EDT, Inhaler, [facility], Partial fill upon patient request if the prescription is for a schedule II opioiddrug., 1 puffs Inhalation Daily,x30 days, 163, cm,... Start Date: 01/12/22 Stop Date: 01/07/23 Status: Ordered carvedilol 25 mg oral tablet 25 mg, 1, tablet, By Mouth, 2 times a day, # 180 tablet, Refills 11, Tot. Refills 11, Maintenance, 07/13/21 11:12:00 EDT, Route to Pharmacy Electronically, [facility], Dose increase, 163, cm, 07/13/21 10:43:00 EDT, Height, 93.5, kg, ... Start Date: 07/13/21 Status: Ordered dapagliflozin 10 mg oral tablet 1 tablet = 10 mg, By Mouth, Daily, # 90 tablet, 11 Refills, Maintenance, 03/21/22 13:01:00 EST, Tablet, [facility], Dose increase, 163, cm, [...] 11 Refills, Maintenance, 10/25/21 15:10:00 EDT, Tablet, [facility], Partial fill upon patient [...] 2 Refills, Maintenance, 04/24/20 11:22:00 EST, Tablet, [facility], 163, cm, 02/14/20 10:48:00 [...] each, 11 Refills, Maintenance, 01/12/22 12:08:00 EDT, [facility], 163, cm, 01/12/22 10:50:00 EDT, Height, 87.3, kg, 08/12/21 7:07:00 EDT, Dry Weight Start Date: 01/12/22 Stop Date: 01/07/23 Status: Ordered spironolactone 50 mg oral tablet 1 tablet = 50 mg, By Mouth, Daily, dose increase, # 90 tablet, 3 Refills, Maintenance, 05/05/22 11:55:00 EST, [facility], 163, cm, 03/21/22 12:14:00 EST, Height, 87.3, kg, 08/12/21 7:07:00EDT, Dry Weight Start Date: 05/05/22 Stop Date: 04/30/23 Status: Ordered torsemide 20 mg oral tablet 1 tablet = 20 mg, By Mouth, Daily, # 90 tablet, 11 Refills, Maintenance, 07/13/21 11:14:00 EDT, Tablet, [facility], Partial fill upon patient [...] Team Personnel Name: Aura Fox RN Position: [facility] ED RN W/OE and Tasks Member Role: Primary Care Nurse Name: Opal Gonzalez RN Position: [facility] RN Member Role: Primary Care Nurse Name: Tenisha Lara MD Position: [facility] General Pediatrics MD Member Role: PCP Address: Address: [address] [place] [address]- Name: Bettina Moran RN Position: [facility] RN Member Role: Primary Care Nurse Name: Britany Fuentes RN Position: [facility] RN Member Role: Primary Care Nurse Name: Jenaro Evans MD Position: [facility] Cardiology MD Member Role: Lifetime Consulting Physician Address: Address: [address] [place] [address], [address] [place] [address] [place] [address]- Name: Sandra Dubois RN Position: [facility] RN Member Role: Primary Care Nurse Name: Taylor Lopes RN Position: [facility] RN Member Role: Primary Care Nurse Name: Haresh Deal RN Position: [facility] SN RN Member Role: Primary Care Nurse Name: Taina Lambert RN Position: S RN Member Role: Primary Care Nurse Name: Teri Azevedo RN Position: [facility] SN RN Member Role: Primary Care Nurse Name: Zoie Abdalla RN Position: S RN Member Role: Primary Care Nurse Care Team Related Persons Name: BESSIE ORTIZ Address: home [address] [place] [address] Name: SAMANTHA KHAN Address: home [address] [place] [address] Name: CARMEN WORTHY
--- OUTSIDE RECORDS SUMMARY | 2023-03-22 10:40 | XMS_ITS | Continuity of Care Document ---
Author Name Unknown Organization [facility] Address [address] [place] [address]- Care Team Providers Care Account Manager Sales Representative Name Role Phone Tenisha Lara MD Primary Care Physician [phone] Encounter [facility] Date(s): 11/01/21 - 12/01/21 [facility] [address] [place] [address]- Attending Physician: Fartun Ramos Admitting Physician: Admtr, Fartun Referring Physician: Admtr, Ar8 Allergies, Adverse Reactions, Alerts Substance Reaction Severity Status codeine headache Active penicillins 1 Active Arava Active Zestril cough Active Augmentin Active Bee Stings Active 1Tolerates cefepime Medications amiodarone 200 mg oral tablet 200 mg, 1, tablet, By Mouth, Daily, # 30 tablet, Refills 5, Tot. Refills 5, Maintenance, 08/20/21 10:22:00 EDT, Route to Pharmacy Electronically, [facility], Partial fill upon patient request if the prescription is for a schedule II opioid... Start Date: 08/20/21 Status: Ordered amLODIPine 10 mg oral tablet 10 mg, 1, tablet, By Mouth, Daily, # 90 tablet, Refills 11, Tot. Refills 11, Maintenance, 07/13/21 11:13:00 EDT, Route to Pharmacy Electronically, [facility], Partial fill upon patient [...] 07/13/21 11:12:00 EDT, Route to Pharmacy Electronically, [facility], Dose increase, 163, cm, 07/13/21 10:43:00 EDT, Height, 93.5, kg, 10/22/2... Start Date: 07/13/21 Status: Ordered dapagliflozin 10 mg oral tablet 1 tablet = 10 mg, By Mouth, Daily, # 90 tablet, 11 Refills, Maintenance, 10/25/21 15:12:00 EDT, Tablet, [facility]174, Dose increase, 163, cm, 10/25/21 14:46:00 EDT, Height, 87.3, kg, 08/12/21 7:07:00 EDT, Dry Weight Start Date: 10/25/21 Status: Ordered DIURETIC INTERVENTION DIURETIC INTERVENTION, See [...] 11 Refills, Maintenance, 10/25/21 15:10:00 EDT, Tablet, [facility], Partial fill upon patient [...] 2 Refills, Maintenance, 04/24/20 11:22:00 EST, Tablet, [facility], 163, cm, 02/14/20 10:48:00 [...] Gm, 11 Refills, Maintenance, 09/25/20 13:18:00 EDT, [facility], 163, cm, 09/25/20 12:08:00 EDT, Height, 101.6, kg, 08/24/20 19:11:00 EDT, Dry Weight Start Date: 09/25/20 Status: Ordered spironolactone 25 mg oral tablet 25 mg, 1, tablet, By Mouth, Daily, # 90 tablet, Refills 11, Tot. Refills 11, Maintenance, 10/25/21 15:11:00 EDT, Route to Pharmacy Electronically, [facility], Dose increase, 163, cm, 10/25/21 14:46:00 EDT, Height, 87.3, kg, 08/12/21 7:07:00... Start Date: 10/25/21 Status: Ordered torsemide 20 mg oral tablet 1 tablet = 20 mg, By Mouth, Daily, # 90 tablet, 11 Refills, Maintenance, 07/13/21 11:14:00 EDT, Tablet, [facility], Partial fill upon patient [...] 100 in lifetime) entered on: 09/19/19 Sex Care Team Personnel Name: Tenisha Lara MD Address: [address] [place] [id number]
--- OUTSIDE RECORDS SUMMARY | 2023-03-22 10:40 | XMS_ITS | Continuity of Care Document ---
Author Name Unknown Organization [facility] ter Address [address] [place] [address]- Care Team Providers Care Fiberglass Ski Maker Name Role Phone Tenisha Lara MD Primary Care Physician [phone] Encounter [facility] R [id number] Date(s): 01/20/21 - 03/09/[address] [address]- Attending Physician: Sim Cross MD Admitting Physician: Sim Cross MD Referring Physician: Lara Conti MD Allergies, Adverse [...] 11/19/20 11:15:00 EDT, Route to Pharmacy Electronically, [facility], Partial fill upon patient request if the [...] Maintenance,12/31/20 16:52:00 EDT, Route to Pharmacy Electronically, [facility], Partial fill upon patient request if the prescription is for a schedule... Start Date: 12/31/20 Stop Date: 12/26/21 Status: Ordered dapagliflozin 5 mg oral tablet 1 tablet = 5 mg, By Mouth, Daily, # 90 tablet, 0 Refills, Maintenance, 10/27/20 11:53:00 EDT, Tablet, [facility], Partial fill upon patient request if the prescription is for a scheduleII opioid drug., 163, cm, 10/27/20 7:45:00 EDT, Hei... Start Date: 10/27/20 Status: Ordered digoxin 0.125 mg oral tablet 1, tablet, By Mouth, Every Monday and , # 90 tablet, Refills 2, Tot. Refills 2, Maintenance, 10/30/20 10:00:00 EDT, Route to Pharmacy Electronically, [facility], 163, cm, 10/29/20 7:52:00 EDT, [...] 2 Refills, Maintenance, 04/24/20 11:22:00 EST, Tablet, [facility]174, 163, cm, 02/14/20 10:48:00 EST, [...] Gm, 11 Refills, Maintenance, 09/25/20 13:18:00 EDT, [facility], 163, cm, 09/25/20 12:08:00 EDT, [...] 0 Refills, Maintenance, 06/24/20 0:38:00 EDT, Capsule, [facility], Partial fill upon patient request [...] Gm, 11 Refills, Maintenance, 06/25/20 14:10:00 EDT, [facility], 164, cm, 06/24/20 0:51:00 EDT, [...]
--- OUTSIDE RECORDS SUMMARY | 2023-03-22 10:40 | XMS_ITS | Continuity of Care Document ---
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 Name Role Phone Tenisha Lara MD Primary Care Physician [id number] Date(s): 10/30/20 - 12/05/20 [facility] [address] [place] [address]- Attending Physician: Darrell Rebolledo MD Admitting Physician: Darrell Rebolledo MD Referring Physician: Tenisha Lara MD Allergies, [...] 11/19/20 11:15:00 EDT, Route to Pharmacy Electronically, [facility], Partial fill upon [...] 06/09/20 11:25:00 EST, Route to Pharmacy Electronically, [facility], 163, cm, 02/14/20 10:48:00 EST, Height, 99, kg, 09/19/19 18:05:00 EDT, Dry Weight Start Date: 06/09/20 Stop Date: 06/04/21 Status: Ordered dapagliflozin 5 mg oral tablet 1 tablet = 5 mg, By Mouth, Daily, # 90 tablet, 0 Refills, Maintenance, 10/27/20 11:53:00 EDT, Tablet, [facility], Partial fill upon patient request if the prescription is for a scheduleII opioid drug., 163, cm, 10/27/20 7:45:00 EDT, Hei... Start Date: 10/27/20 Status: Ordered digoxin 0.125 mg oral tablet 1, tablet, By Mouth, Every Monday and , # 90 tablet, Refills 2, Tot. Refills 2, Maintenance, 10/30/20 10:00:00 EDT, Route to Pharmacy Electronically, [facility], 163, cm, 10/29/20 [...] Refills, Maintenance, 04/24/20 11:22:00 EST, Tablet, [facility], 163, cm, 02/14/20 [...] Gm, 11 Refills, Maintenance, 09/25/20 13:18:00 EDT, [facility], 163, cm, 09/25/20 12:08:00 EDT, Height, 101.6, kg, 08/24/20 19:11:00 EDT, Dry Weight Start Date: 09/25/20 Status: Ordered Tessalon Perles 100 mg oral capsule 1 capsule = 100 mg, By Mouth, 3 times a day, PRN Cough, # 14 capsule, 0 Refills, Maintenance, 06/24/20 0:38:00 EDT, Capsule, [facility], Partial fill upon [...] Gm, 11 Refills, Maintenance, 06/25/20 14:10:00 EDT, [facility], 164, cm, 06/24/20 [...]
--- OUTSIDE RECORDS SUMMARY | 2023-03-22 10:40 | XMS_ITS | Continuity of Care Document ---
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 Name Role Phone Tenisha Lara MD Primary Care Physician [id number] Date(s): 05/20/19 - 05/20/[address] [address]- [facility] Attending Physician: Not on Staff, Attending MD Allergies, Adverse Reactions, Alerts Substance Reaction Severity Status codeine headache Active penicillins 1 Active Arava Active Zestril cough Active 1Tolerates cefepime Medications Acid Apparel Embroidery Digitizer See Instructions, 1 TABLET NEEDED, 0 Refills, Maintenance, 09/20/18 12:57:51 EDT Start Date: 09/20/18 Status: Ordered carvedilol 25 mg oral tablet 1, tablet, By Mouth, 2 times a day, # 60 each, Refills 0, Tot. Refills 0, Maintenance, 05/08/19 12:04:00 EST, Route to Pharmacy Electronically, [facility], 163, cm, 03/14/19 14:03:00 [...] 0 Refills, Maintenance, 04/30/19 16:03:00 EST, Tablet, [facility], 1 tablet By Mouth [...] 15:26:56 EDT, Aerosol, Route to Pharmacy Electronically, [id number], [facility]74 Start Date: 11/27/18 Status: Ordered Tylenol 8 [...]
--- OUTSIDE RECORDS SUMMARY | 2023-03-22 10:40 | XMS_ITS | Continuity of Care Document ---
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 Start Date: 01/12/22 Stop Date: 01/07/23 Status: Ordered amiodarone 200 mg oral tablet 200 mg, 1, tablet, By Mouth, Daily, # 90 tablet, Refills 2, Tot. Refills 2, Maintenance, 05/02/22 14:32:00 EST, Route to Pharmacy Electronically, [facility], 163, cm, 03/21/22 12:14:00 EST, Height, 87.3, kg, 08/12/21 7:07:00 EDT, Dry Weight Start Date: 05/02/22 Stop Date: 01/27/23 Status: Ordered amLODIPine 10 mg oral tablet 10 mg, 1, tablet, By Mouth, Daily, # 90 tablet, Refills 11, Tot. Refills 11, Maintenance, 07/13/21 11:13:00 EDT, Route to Pharmacy Electronically, [facility] 2[facility], Partial fill upon patient request if the prescription is for a schedule II opioid... Start Date: 07/13/21 Status: Ordered Breo Ellipta 100 mcg-25 mcg/inh inhalation powder 1 puffs, Inhalation, Daily, # 1 each, 11 Refills, Maintenance, 01/12/22 12:08:00 EDT, Inhaler, [facility] 2[facility], Partial fill upon patient request if the prescription is for a schedule II opioiddrug., 1 puffs Inhalation Daily,x30 days, 163, cm,... Start Date: 01/12/22 Stop Date: 01/07/23 Status: Ordered carvedilol 25 mg oral tablet 50 mg, 2, tablet, By Mouth, 2 times a day, # 360 tablet, Refills 11, Tot. Refills 11, Maintenance, 07/01/22 11:12:00 EDT, Route to Pharmacy Electronically, [facility], Dose increase, 163, cm, 03/21/22 12:14:00 EST, Height, 87.3, kg, ... Start Date: 07/01/22 Stop Date: 06/15/25 Status: Ordered dapagliflozin 10 mg oral tablet 1 tablet = 10 mg, By Mouth, Daily, # 90 tablet, 11 Refills, Maintenance, 03/21/22 13:01:00 EST, Tablet, [facility], Dose increase, 163, cm, [...] Refills, Maintenance, 10/25/21 15:10:00 EDT, Tablet, [facility] 2[facility], Partial fill upon patient [...] Refills, Maintenance, 04/24/20 11:22:00 EST, Tablet, [facility], 163, cm, 02/14/20 10:48:00 [...] 11 Refills, Maintenance, 01/12/22 12:08:00 EDT, [facility], 163, cm, 01/12/22 10:50:00 EDT, Height, 87.3, kg, 08/12/21 7:07:00 EDT, Dry Weight Start Date: 01/12/22 Stop Date: 01/07/23 Status: Ordered spironolactone 50 mg oral tablet 1 tablet = 50 mg, By Mouth, Daily, dose increase, # 90 tablet, 3 Refills, Maintenance, 05/05/22 11:55:00 EST, [facility], 163, cm, 03/21/22 12:14:00 EST, Height, 87.3, kg, 08/12/21 7:07:00EDT, Dry Weight Start Date: 05/05/22 Stop Date: 04/30/23 Status: Ordered torsemide 20 mg oral tablet 1 tablet = 20 mg, By Mouth, Daily, # 90 tablet, 11 Refills, Maintenance, 07/13/21 11:14:00 EDT, Tablet, [facility], Partial fill upon patient [...] Team Personnel Name: Aura Fox RN Position: [facility] ED RN W/OE and Tasks Member Role: Primary Care Nurse Name: Tenisha Lara MD Position: [facility] General Pediatrics MD Member Role: PCP Address: Address: [address] [place] [id number] Name: Bettina Moran RN Position: [facility] RN Member Role: Primary Care Nurse Name: Britany Fuentes RN Position: [facility] RN Member Role: Primary Care Nurse Name: Jenaro Evans MD Position: [facility] Cardiology MD Member Role: Lifetime Consulting Physician Address: Address: [address] [place] [address] [place] [address]- Name: Sandra Dubois RN Position: [facility] RN Member Role: Primary Care Nurse Name: Taylor Lopes RN Position: [facility] RN Member Role: Primary Care Nurse Name: Haresh Deal RN Position: [facility] SN RN Member Role: Primary Care Nurse Name: Taina Lambert RN Position: [facility] RN Member Role: Primary Care Nurse Name: Teri Azevedo RN Position: [facility] SN RN Member Role: Primary Care Nurse Name: Zoie Abdalla RN Position: [facility] RN Member Role: Primary Care Nurse Care Team Related Persons Name: BESSIE ORTIZ Address: home [address] [place] [address] Name: SAMANTHA KHAN Address: home [address] [place] [address] Name: CARMEN WORTHY
--- OUTSIDE RECORDS SUMMARY | 2023-03-22 10:40 | XMS_ITS | Continuity of Care Document ---
Author Name Unknown Organization [facility] ter Address [address] [place] [address]- Care Team Providers Care Powdered Sugar Pulverizer Operator Name Role Phone Jane ECHEVERRIA, Tenisha Primary Care Physician [id number] Date(s): 05/22/19 - 05/22/[address] [address]- [facility] Attending Physician: Daisha RASCON, Nel Nieto Allergies, Adverse Reactions, Alerts Substance Reaction Severity Status codeine headache Active penicillins 1 Active Arava Active Zestril cough Active 1Tolerates cefepime Medications albuterol 0.083% inhalation solution 3 mL = 2.5 mg, Neb, Every 6 hours, PRN as needed for wheezing, Asthma: J45.909, # 360 mL, 11 Refills, Maintenance, 05/21/19 10:27:00 EST, Solution, [facility], 163, cm, 05/21/19 9:55:00 EST, Height, 93.5, [...] 05/08/19 12:04:00 EST, Route to Pharmacy Electronically, [facility], 163, cm, 03/14/19 14:03:00 EST, [...] 12:21:00 EST, Aerosol, Route to Pharmacy Electronically, [id number], [facility], 163, cm, 05/21/19 9:55:00 EST, [...]
--- OUTSIDE RECORDS SUMMARY | 2023-03-22 10:40 | XMS_ITS | Continuity of Care Document ---
Author Name Unknown Organization [facility] Address [address] [place] [address]- Care Team Providers Care Dental Hygiene Administrative Assistant Name Role Phone Tenisha Lara MD Primary Care Physician [phone] Encounter [facility] [place] [facility] [place] [id number] Date(s): 10/19/22 - 11/18/22 [facility] [address] [place] [address]- [place] Allergies, Adverse Reactions, Alerts Substance Reaction Severity Status codeine headache Active penicillins 1 Active Arava Active Zestril cough Active Augmentin Active Bee Stings Active 1Tolerates cefepime Medications albuterol CFC free 90 mcg/inh inhalation aerosol 2, puffs, Inhalation, 4 times a day, PRN, # 18 Gm, Refills 11, Tot. Refills 11, Maintenance, 01/12/22 12:09:00 EDT, Aerosol, Route to Pharmacy Electronically, [id number], [facility], 163, cm, 01/12/22 10:50:00 EDT,... Start Date: 01/12/22 Stop Date: 01/07/23 Status: Ordered amLODIPine 10 mg oral tablet 10 mg, 1, tablet, By Mouth, Daily, # 90 tablet, Refills 2, Tot. Refills 2, Maintenance, 10/19/22 11:20:00 EDT, Route to Pharmacy Electronically, [facility], Partial fill upon patient request if the prescription is for a schedule II opioid d... Start Date: 10/19/22 Status: Ordered Breo Ellipta 100 mcg-25 mcg/inh inhalation powder 1 puffs, Inhalation, Daily, # 1 each, 11 Refills, Maintenance, 01/12/22 12:08:00 EDT, Inhaler, [facility], Partial fill upon patient request if the prescription is for a schedule II opioiddrug., 1 puffs Inhalation Daily,x30 days, 163, cm,... Start Date: 01/12/22 Stop Date: 01/07/23 Status: Ordered carvedilol 25 mg oral tablet 50 mg, 2, tablet, By Mouth, 2 times a day, # 360 tablet, Refills 11, Tot. Refills 11, Maintenance, 07/01/22 11:12:00 EDT, Route to Pharmacy Electronically, [facility], Dose increase, 163, cm, 03/21/22 12:14:00 EST, Height, 87.3, kg, ... Start Date: 07/01/22 Stop Date: 06/15/25 Status: Ordered dapagliflozin 10 mg oral tablet 1 tablet = 10 mg, By Mouth, Daily, # 90 tablet, 11 Refills, Maintenance, 03/21/22 13:01:00 EST, Tablet, [facility], Dose increase, 163, cm, 03/21/22 [...] Refills, Maintenance, 10/25/21 15:10:00 EDT, Tablet, [facility], Partial fill upon patient request [...] Refills, Maintenance, 04/24/20 11:22:00 EST, Tablet, [facility], 163, cm, 02/14/20 10:48:00 EST, [...] 11 Refills, Maintenance, 01/12/22 12:08:00 EDT, [facility], 163, cm, 01/12/22 10:50:00 EDT, Height, 87.3, kg, 08/12/21 7:07:00 EDT, Dry Weight Start Date: 01/12/22 Stop Date: 01/07/23 Status: Ordered spironolactone 50 mg oral tablet 1 tablet = 50 mg, By Mouth, Daily, dose increase, # 90 tablet, 3 Refills, Maintenance, 05/05/22 11:55:00 EST, [facility], 163, cm, 03/21/22 12:14:00 EST, Height, 87.3, kg, 08/12/21 7:07:00EDT, Dry Weight Start Date: 05/05/22 Stop Date: 04/30/23 Status: Ordered torsemide 20 mg oral tablet 1 tablet = 20 mg, By Mouth, Daily, # 90 tablet, 11 Refills, Maintenance, 07/13/21 11:14:00 EDT, Tablet, [facility], Partial fill upon patient request [...] Team Personnel Name: Aura Fox RN Position: [facility] RN W/OE and Tasks Member Role: Primary Care Nurse Name: Tenisha Lara MD Position: [facility] Physician - Pediatrics Member Role: PCP Address: Address: [address] [place] [address]- [place] Name: Bettina Moran RN Position: S RN Member Role: Primary Care Nurse Name: Britany Fuentes RN Position: [facility] RN Member Role: Primary Care Nurse Name: Jenaro Evans MD Position: [facility] Cardiology MD Member Role: Lifetime Consulting Physician Address: Address: [address] [place] [address] [address] [facility] [place] [address]- Name: Sandra Dubois RN Position: [facility] RN Member Role: Primary Care Nurse Name: Taylor Lopes RN Position: [facility] RN Member Role: Primary Care Nurse Name: Haresh Deal RN Position: [facility] SN RN Member Role: Primary Care Nurse Name: Tiana Lambert RN Position: S RN Member Role: Primary Care Nurse Name: Teri Azevedo RN Position: [facility] SN RN Member Role: Primary Care Nurse Name: Zoie Abdalla RN Position: [facility] RN Member Role: Primary Care Nurse Care Team Related Persons Name: BESSIE ORTIZ Address: home [address] [place] [address] Name: SAMANTHA KHAN Address: home [address] [place] [address] Name: CARMEN WORTHY
[2023-03-22 10:41] VITALS: BP 112/60; PULSE 67; O2SAT 96; BMI 35.8
--- OUTSIDE RECORDS SUMMARY | 2023-03-22 10:41 | XMS_ITS | Continuity of Care Document ---
Author Name Unknown Organization [facility] Address [address] [place] [address]- Care Team Providers Care National Opelint Analyst Name Role Phone Tenisha Lara MD Primary Care Physician [phone] [place] [facility] [place]21 [facility] [address], [place] [address] Attending Physician: Admtr, [id number] Admitting Physician: Admtr, Cesar8 Referring Physician: Admtr, Ar8 Allergies, Adverse Reactions, Alerts Substance Reaction Severity Status codeine headache Active penicillins 1 Active Arava Active Zestril cough Active Augmentin Active Bee Stings Active 1Tolerates cefepime Medications amiodarone 200 mg oral tablet 200 mg, 1, tablet, By Mouth, Daily, # 30 tablet, Refills 5, Tot. Refills 5, Maintenance, 08/20/21 10:22:00 EDT, Route to Pharmacy Electronically, [facility], Partial fill upon patient request if the prescription is for a schedule II opioid... Start Date: 08/20/21 Status: Ordered amLODIPine 10 mg oral tablet 10 mg, 1, tablet, By Mouth, Daily, # 90 tablet, Refills 11, Tot. Refills 11, Maintenance, 07/13/21 11:13:00 EDT, Route to Pharmacy Electronically, [facility], Partial fill upon [...] 07/13/21 11:12:00 EDT, Route to Pharmacy Electronically, [facility], Dose increase, 163, cm, 07/13/21 10:43:00 EDT, Height, 93.5, kg, 2... Start Date: 07/13/21 Status: Ordered dapagliflozin 5 mg oral tablet 1 tablet = 5 mg, By Mouth, Daily, # 90 tablet, 0 Refills, Maintenance, 10/27/20 11:53:00 EDT, Tablet, [facility], Partial fill upon patient request if [...] Refills, Maintenance, 04/24/20 11:22:00 EST, Tablet, [facility], 163, cm, 02/14/20 [...] Gm, 11 Refills, Maintenance, 09/25/20 13:18:00 EDT, [facility], 163, cm, 09/25/20 12:08:00 EDT, Height, 101.6, kg, 08/24/20 19:11:00 EDT, Dry Weight Start Date: 09/25/20 Status: Ordered spironolactone 25 mg oral tablet 12.5 mg, 0.5, tablet, By Mouth, Daily, # 15 tablet, Refills 11, Tot. Refills 11, Maintenance, 07/13/21 11:14:00 EDT, Route to Pharmacy Electronically, [facility], Partial fill upon patientrequest if the prescription is for a schedule II op... Start Date: 07/13/21 Status: Ordered torsemide 20 mg oral tablet 1 tablet = 20 mg, By Mouth, Daily, # 90 tablet, 11 Refills, Maintenance, 07/13/21 11:14:00 EDT, Tablet, [facility], Partial fill upon [...]
--- OUTSIDE RECORDS SUMMARY | 2023-03-22 10:41 | XMS_ITS | Continuity of Care Document ---
Author Name Unknown Organization [facility] Address [address] [place] [address]- Care Team Providers Care Dynamometer Tester Name Role Phone Tenisha Lara MD Primary Care Physician Encounter [facility] [place] Date(s): 01/14/22 - 01/21/22 [facility] [address] [place], [place] [address] Attending Physician: Eleazar Yung MD Admitting Physician: [...] 12:09:00 EDT, Aerosol, Route to Pharmacy Electronically, [id number], [facility], 163, cm, 01/12/22 10:50:00 EDT,... Start Date: 01/12/22 Stop Date: 01/07/23 Status: Ordered amiodarone 200 mg oral tablet 200 mg, 1, tablet, By Mouth, Daily, # 30 tablet, Refills 5, Tot. Refills 5, Maintenance, 08/20/21 10:22:00 EDT, Route to Pharmacy Electronically, [facility], Partial fill upon patient request if the prescription is for a schedule II opioid... Start Date: 08/20/21 Status: Ordered amLODIPine 10 mg oral tablet 10 mg, 1, tablet, By Mouth, Daily, # 90 tablet, Refills 11, Tot. Refills 11, Maintenance, 07/13/21 11:13:00 EDT, Route to Pharmacy Electronically, [facility], Partial fill upon patient request if the prescription is for a schedule II opioid... Start Date: 07/13/21 Status: Ordered Breo Ellipta 100 mcg-25 mcg/inh inhalation powder 1 puffs, Inhalation, Daily, # 1 each, 11 Refills, Maintenance, 01/12/22 12:08:00 EDT, Inhaler, [facility], Partial fill upon [...] 07/13/21 11:12:00 EDT, Route to Pharmacy Electronically, [facility], Dose increase, 163, cm, 07/13/21 10:43:00 EDT, Height, 93.5, kg, ... Start Date: 07/13/21 Status: Ordered dapagliflozin 5 mg oral tablet 1 tablet = 5 mg, By Mouth, Daily, # 30 tablet, 11 Refills, Maintenance, 12/15/21 12:12:00 EDT, Tablet, [facility], this is a dose [...] 11 Refills, Maintenance, 10/25/21 15:10:00 EDT, Tablet, [facility], Partial fill upon [...] 2 Refills, Maintenance, 04/24/20 11:22:00 EST, Tablet, [facility], 163, cm, 02/14/20 [...] each, 11 Refills, Maintenance, 01/12/22 12:08:00 EDT, [facility], 163, cm, 01/12/22 10:50:00 EDT, Height, 87.3, kg, 08/12/21 7:07:00 EDT, Dry Weight Start Date: 01/12/22 Stop Date: 01/07/23 Status: Ordered spironolactone 25 mg oral tablet 25 mg, 1, tablet, By Mouth, Daily, # 90 tablet, Refills 11, Tot. Refills 11, Maintenance, 10/25/21 15:11:00 EDT, Route to Pharmacy Electronically, [facility], Dose increase, 163, cm, 10/25/21 14:46:00 EDT, Height, 87.3, kg, 08/12/21 7:07:00... Start Date: 10/25/21 Status: Ordered torsemide 20 mg oral tablet 1 tablet = 20 mg, By Mouth, Daily, # 90 tablet, 11 Refills, Maintenance, 07/13/21 11:14:00 EDT, Tablet, [facility], Partial fill upon [...] Personnel Name: Tenisha Lara MD Address: Address: [address] [place] [address]
--- OUTSIDE RECORDS SUMMARY | 2023-03-22 10:41 | XMS_ITS | Continuity of Care Document ---
Author Name Unknown Organization [facility] Address [address] [place] [address]- Care Team Providers Care Certified Orthotist Name Role Phone Tenisha Lara MD Primary Care Physician [id number] Date(s): 08/20/21 - 09/19/21 [facility] [address] [place] [address]- Referring Physician: Karine Hickman Allergies, Adverse Reactions, Alerts Substance Reaction Severity Status codeine headache Active penicillins 1 Active Arava Active Zestril cough Active Augmentin Active Bee Stings Active 1Tolerates cefepime Medications amiodarone 200 mg oral tablet 200 mg, 1, tablet, By Mouth, Daily, # 30 tablet, Refills 5, Tot. Refills 5, Maintenance, 08/20/21 10:22:00 EDT, Route to Pharmacy Electronically, [facility], Partial fill upon patient request if the prescription is for a schedule II opioid... Start Date: 08/20/21 Status: Ordered amLODIPine 10 mg oral tablet 10 mg, 1, tablet, By Mouth, Daily, # 90 tablet, Refills 11, Tot. Refills 11, Maintenance, 07/13/21 11:13:00 EDT, Route to Pharmacy Electronically, [facility], Partial fill upon patient [...] 07/13/21 11:12:00 EDT, Route to Pharmacy Electronically, [facility], Dose increase, 163, cm, 07/13/21 10:43:00 EDT, Height, 93.5, kg, 2... Start Date: 07/13/21 Status: Ordered dapagliflozin 5 mg oral tablet 1 tablet = 5 mg, By Mouth, Daily, # 90 tablet, 0 Refills, Maintenance, 10/27/20 11:53:00 EDT, Tablet, [facility], Partial fill upon patient [...] 2 Refills, Maintenance, 04/24/20 11:22:00 EST, Tablet, [facility], 163, cm, 02/14/20 10:48:00 [...] Gm, 11 Refills, Maintenance, 09/25/20 13:18:00 EDT, [facility], 163, cm, 09/25/20 12:08:00 EDT, Height, 101.6, kg, 08/24/20 19:11:00 EDT, Dry Weight Start Date: 09/25/20 Status: Ordered spironolactone 25 mg oral tablet 12.5 mg, 0.5, tablet, By Mouth, Daily, # 15 tablet, Refills 11, Tot. Refills 11, Maintenance, 07/13/21 11:14:00 EDT, Route to Pharmacy Electronically, [facility], Partial fill upon patientrequest if the prescription is for a schedule II op... Start Date: 07/13/21 Status: Ordered torsemide 20 mg oral tablet 1 tablet = 20 mg, By Mouth, Daily, # 90 tablet, 11 Refills, Maintenance, 07/13/21 11:14:00 EDT, Tablet, [facility], Partial fill upon patient [...]
--- OUTSIDE RECORDS SUMMARY | 2023-03-22 10:41 | XMS_ITS | Continuity of Care Document ---
Author Name Unknown Organization [facility] Address [address] [place] [address]- Care Team Providers Care Handicapped Teacher Name Role Phone Tenisha Lara MD Primary Care Physician Encounter [facility] [place] Date(s): 08/02/22 - 09/01/22 [facility] [address] [place] [address]- Allergies, Adverse Reactions, Alerts Substance Reaction Severity Status codeine headache Active penicillins 1 Active Arava Active Zestril cough Active Augmentin Active Bee Stings Active 1Tolerates cefepime Medications albuterol CFC free 90 mcg/inh inhalation aerosol 2, puffs, Inhalation, 4 times a day, PRN, # 18 Gm, Refills 11, Tot. Refills 11, Maintenance, 01/12/22 12:09:00 EDT, Aerosol, Route to Pharmacy Electronically, [id number], [facility], 163, cm, 01/12/22 10:50:00 EDT,... Start Date: 01/12/22 Stop Date: 01/07/23 Status: Ordered amiodarone 200 mg oral tablet 200 mg, 1, tablet, By Mouth, Daily, # 90 tablet, Refills 2, Tot. Refills 2, Maintenance, 05/02/22 14:32:00 EST, Route to Pharmacy Electronically, [facility], 163, cm, 03/21/22 12:14:00 EST, Height, 87.3, kg, 08/12/21 7:07:00 EDT, Dry Weight Start Date: 05/02/22 Stop Date: 01/27/23 Status: Ordered amLODIPine 10 mg oral tablet 10 mg, 1, tablet, By Mouth, Daily, # 90 tablet, Refills 11, Tot. Refills 11, Maintenance, 07/13/21 11:13:00 EDT, Route to Pharmacy Electronically, [facility], Partial fill upon patient request if the prescription is for a schedule II opioid... Start Date: 07/13/21 Status: Ordered Breo Ellipta 100 mcg-25 mcg/inh inhalation powder 1 puffs, Inhalation, Daily, # 1 each, 11 Refills, Maintenance, 01/12/22 12:08:00 EDT, Inhaler, [facility], Partial fill upon patient [...] EDT, Route to Pharmacy Electronically, [facility], Dose increase, 163, cm, 03/21/22 12:14:00 EST, Height, 87.3, kg, ... Start Date: 07/01/22 Stop Date: 06/15/25 Status: Ordered dapagliflozin 10 mg oral tablet 1 tablet = 10 mg, By Mouth, Daily, # 90 tablet, 11 Refills, Maintenance, 03/21/22 13:01:00 EST, Tablet, [facility], Dose increase, 163, cm, [...] Maintenance, 10/25/21 15:10:00 EDT, Tablet, [facility], Partial fill upon patient [...] Maintenance, 04/24/20 11:22:00 EST, Tablet, [facility], 163, cm, 02/14/20 10:48:00 [...] Refills, Maintenance, 01/12/22 12:08:00 EDT, [facility], 163, cm, 01/12/22 10:50:00 EDT, Height, 87.3, kg, 08/12/21 7:07:00 EDT, Dry Weight Start Date: 01/12/22 Stop Date: 01/07/23 Status: Ordered spironolactone 50 mg oral tablet 1 tablet = 50 mg, By Mouth, Daily, dose increase, # 90 tablet, 3 Refills, Maintenance, 05/05/22 11:55:00 EST, [facility], 163, cm, 03/21/22 12:14:00 EST, Height, 87.3, kg, 08/12/21 7:07:00EDT, Dry Weight Start Date: 05/05/22 Stop Date: 04/30/23 Status: Ordered torsemide 20 mg oral tablet 1 tablet = 20 mg, By Mouth, Daily, # 90 tablet, 11 Refills, Maintenance, 07/13/21 11:14:00 EDT, Tablet, [facility], Partial fill upon patient [...] Team Personnel Name: Aura Fox RN Position: [facility] ED RN W/OE and Tasks Member Role: Primary Care Nurse Name: Tenisha Lara MD Position: [facility] Physician - Pediatrics Member Role: PCP Address: Address: [address] [place] [address]- Name: Bettina Moran RN Position: [facility] RN Member Role: Primary Care Nurse Name: Britany Fuentes RN Position: [facility] RN Member Role: Primary Care Nurse Name: Jenaro Evans MD Position: [facility] Cardiology MD Member Role: Lifetime Consulting Physician Address: Address: [address] [place] [address], [address] [place] [address] [place] [address]- Name: Sandra Dubois RN Position: [facility] RN Member Role: Primary Care Nurse Name: Taylor Lopes RN Position: [facility] RN Member Role: Primary Care Nurse Name: Haresh Deal RN Position: [facility] SN RN Member Role: Primary Care Nurse Name: Taina Lambert RN Position: [facility] RN Member Role: Primary Care Nurse Name: Teri Azevedo RN Position: [facility] SN RN Member Role: Primary Care Nurse Name: Zoie Abdalla RN Position: [facility] RN Member Role: Primary Care Nurse Care Team Related Persons Name: BESSIE ORTIZ Address: home [address] [place] [address] Name: SAMANTHA KHAN Address: home [address] [place] [address] Name: CARMEN WORTHY
--- OUTSIDE RECORDS SUMMARY | 2023-03-22 10:41 | XMS_ITS | Continuity of Care Document ---
Author Name Unknown Organization [facility] Address [address] [place] [address]- Care Team Providers Care Assistant District Attorney Name Role Phone Tenisha Lara MD Primary Care Physician Encounter [facility] [place] Date(s): 07/19/22 - 08/18/22 [facility] [address] [place], [place] [address] Attending Physician: Admtr, Ar8 Admitting Physician: Admtr, [...] 12:09:00 EDT, Aerosol, Route to Pharmacy Electronically, [id number], [facility], 163, cm, 01/12/22 10:50:00 EDT,... Start Date: 01/12/22 Stop Date: 01/07/23 Status: Ordered amiodarone 200 mg oral tablet 200 mg, 1, tablet, By Mouth, Daily, # 90 tablet, Refills 2, Tot. Refills 2, Maintenance, 05/02/22 14:32:00 EST, Route to Pharmacy Electronically, [facility], 163, cm, 03/21/22 12:14:00 EST, Height, 87.3, kg, 08/12/21 7:07:00 EDT, Dry Weight Start Date: 05/02/22 Stop Date: 01/27/23 Status: Ordered amLODIPine 10 mg oral tablet 10 mg, 1, tablet, By Mouth, Daily, # 90 tablet, Refills 11, Tot. Refills 11, Maintenance, 07/13/21 11:13:00 EDT, [facility] [...] 11 Refills, Maintenance, 10/25/21 15:10:00 EDT, Tablet, [facility] [...] Team Personnel Name: Aura Fox RN Position: [facility] ED RN W/OE and Tasks Member Role: Primary Care Nurse Name: Tenisha Lara MD Position: [facility] General Pediatrics MD Member Role: PCP Address: Address: [address] [place] [address] Name: Bettina Moran RN Position: [facility] RN Member Role: Primary Care Nurse Name: Britany Fuentes RN Position: [facility] ED RN W/OE and Tasks Member Role: Primary Care Nurse Name: Jenaro Evans MD Position: [facility] Cardiology MD Member Role: Lifetime Consulting Physician Address: Address: [address] [place] [address] [place] [address]- Name: Sandra Dubois RN Position: S RN Member Role: Primary Care Nurse Name: Taylor Lopes RN Position: [facility] RN Member Role: Primary Care Nurse Name: Haresh Deal RN Position: [facility] SN RN Member Role: Primary Care Nurse Name: Taina Lambert RN Position: S RN Member Role: Primary Care Nurse Name: Teri Azevedo RN Position: [facility] SN RN Member Role: Primary Care Nurse Name: Zoie Abdalla RN Position: S RN Member Role: Primary Care Nurse Care Team Related Persons Name: BESSIE ORTIZ Address: home [address] [place] [address] Name: SAMANTHA KHAN Address: home [address] [place] [address] Name: CARMEN WORTHY
--- OUTSIDE RECORDS SUMMARY | 2023-03-22 10:41 | XMS_ITS | Continuity of Care Document ---
Author Name Unknown Organization [facility] Address [address] [place] [address]- Care Team Providers Care Printed Circuit Photographer Name Role Phone Tenisha Lara MD [id number] Date[facility]29[facility] - 04/28/22 [facility] [address] [place] [address]- Attending Physician: Param Cordon MD Admitting Physician: [...] 12:09:00 EDT, Aerosol, Route to Pharmacy Electronically, [id number], [facility], 163, cm, 01/12/22 10:50:00 EDT,... Start Date: 01/12/22 Stop Date: 01/07/23 Status: Ordered amiodarone 200 mg oral tablet 200 mg, 1, tablet, By Mouth, Daily, # 30 tablet, Refills 1, Tot. Refills 1, Maintenance, 02/21/22 12:41:00 EST, Route to Pharmacy Electronically, [facility] 1068, Partial fill upon patient request if the prescription is for a schedule II opioid... Start Date: 02/21/22 Stop Date: 04/22/22 Status: Ordered amLODIPine 10 mg oral tablet 10 mg, 1, tablet, By Mouth, Daily, # 90 tablet, Refills 11, Tot. Refills 11, Maintenance, 07/13/21 11:13:00 EDT, Route to Pharmacy Electronically, [facility] 2174, Partial fill upon patient request if the prescription is for a schedule II opioid... Start Date: 07/13/21 Status: Ordered Breo Ellipta 100 mcg-25 mcg/inh inhalation powder 1 puffs, Inhalation, Daily, # 1 each, 11 Refills, Maintenance, 01/12/22 12:08:00 EDT, Inhaler, [facility] 2174, Partial fill upon patient request if the prescription is for a schedule II opioiddrug., 1 puffs Inhalation Daily,x30 days, 163, cm,... Start Date: 01/12/22 Stop Date: 01/07/23 Status: Ordered carvedilol 25 mg oral tablet 25 mg, 1, tablet, By Mouth, 2 times a day, # 180 tablet, Refills 11, Tot. Refills 11, Maintenance, 07/13/21 11:12:00 EDT, Route to Pharmacy Electronically, [facility] 2174, Dose increase, 163, cm, 07/13/21 10:43:00 EDT, Height, 93.5, kg, 10/22/2... Start Date: 07/13/21 Status: Ordered dapagliflozin 10 mg oral tablet 1 tablet = 10 mg, By Mouth, Daily, # 90 tablet, 11 Refills, Maintenance, 03/21/22 13:01:00 EST, Tablet, [facility] 1068, Dose increase, 163, cm, [...] 11 Refills, Maintenance, 10/25/21 15:10:00 EDT, Tablet, [facility] 2174, Partial fill upon patient [...] 2 Refills, Maintenance, 04/24/20 11:22:00 EST, Tablet, [facility], 163, cm, 02/14/20 10:48:00 [...] each, 11 Refills, Maintenance, 01/12/22 12:08:00 EDT, [facility]174, 163, cm, 01/12/22 10:50:00 EDT, Height, 87.3, kg, 08/12/21 7:07:00 EDT, Dry Weight Start Date: 01/12/22 Stop Date: 01/07/23 Status: Ordered spironolactone 50 mg oral tablet 1 tablet = 50 mg, By Mouth, Daily, dose increase, # 30 tablet, 3 Refills, Maintenance, 04/01/22 12:09:00 EST, [facility], 163, cm, 03/21/22 12:14:00 EST, Height, 87.3, kg, 08/12/21 7:07:00EDT, Dry Weight Start Date: 04/01/22 Stop Date: 07/30/22 Status: Ordered torsemide 20 mg oral tablet 1 tablet = 20 mg, By Mouth, Daily, # 90 tablet, 11 Refills, Maintenance, 07/13/21 11:14:00 EDT, Tablet, [facility] 2174, Partial fill upon patient [...] Team Personnel Name: Aura Fox RN Position: [facility] ED RN W/OE and Tasks Member Role: Primary Care Nurse Name: Opal Gonzalez RN Position: [facility] RN Member Role: Primary Care Nurse Name: Tenisha Lara MD Position: [facility] General Pediatrics MD Member Role: PCP Address: Address: [address] [place], [place] [address] Name: Bettina Moran RN Position: [facility] RN Member Role: Primary Care Nurse Name: Britany Fuentes RN Position: [facility] ED RN W/OE and Tasks Member Role: Primary Care Nurse Name: Jenaro Evans MD Position: [facility] Cardiology MD Member Role: Lifetime Consulting Physician Address: Address: [address] [place] [address], [address] [place] [address] [facility] [place] [address]- Name: Sandra Dubois RN Position: [facility] RN Member Role: Primary Care Nurse Name: Taylor Lopes RN Position: [facility] RN Member Role: Primary Care Nurse Name: Haresh Deal RN Position: S RN Member Role: Primary Care Nurse Name: Taina Lambert RN Position: [facility] RN Member Role: Primary Care Nurse Name: Teri Azevedo RN Position: [facility] SN RN Member Role: Primary Care Nurse Name: Zoie Abdalla RN Position: S RN Member Role: Primary Care Nurse Care Team Related Persons Name: DIANA BESSIE Address: home [address] [place] [address] Name: SAMANTHA KHAN Address: home [address] [place] [address] Name: CARMEN WORTHY
--- OUTSIDE RECORDS SUMMARY | 2023-03-22 10:41 | XMS_ITS | Continuity of Care Document ---
Author Name Unknown Organization [facility] Address [address] [place] [address]- Care Team Providers Care Donor Recruiter Name Role Phone Tenisha Lara MD Primary Care Physician Encounter [facility] R [id number] Date(s): 06/16/21 - 07/16/21 [facility] [address] [place] [address]- [place] Allergies, Adverse Reactions, Alerts Substance Reaction Severity Status codeine headache Active penicillins 1 Active Arava Active Zestril cough Active Augmentin Active Bee Stings Active 1Tolerates cefepime Medications amiodarone 200 mg oral tablet 200 mg, 1, tablet, By Mouth, Daily, # 30 tablet, Refills 5, Tot. Refills 5, Maintenance, 11/19/20 11:15:00 EDT, Route to Pharmacy Electronically, [facility] [...] 0 Refills, Maintenance, 10/27/20 11:53:00 EDT, Tablet, [facility], Partial fill upon patient request if [...] opioid drug. Start Date: 02/08/21 Status: Ordered methotrexate 2.5 mg oral tablet [...] Gm, 11 Refills, Maintenance, 09/25/20 13:18:00 EDT, [facility], 163, cm, 09/25/20 12:08:00 EDT, Height, 101.6, kg, 08/24/20 19:11:00 EDT, Dry Weight Start Date: 09/25/20 Status: Ordered spironolactone 25 mg oral tablet 12.5 mg, 0.5, tablet, By Mouth, Daily, # 15 tablet, Refills 11, Tot. Refills 11, Maintenance, 07/13/21 11:14:00 EDT, Route to Pharmacy Electronically, [facility], Partial fill upon patientrequest [...]
--- OUTSIDE RECORDS SUMMARY | 2023-03-22 10:41 | XMS_ITS | Continuity of Care Document ---
Author Name Unknown Organization [facility] Address [address] [place] [address]- Care Team Providers Care Class A Regional Drivers Name Role Phone Tenisha Lara MD Primary Care Physician Encounter [facility] [id number] Date(s): 04/03/22 - 05/03/22 [facility] [address] [place] [address]- Attending Physician: Admtr, Ar8 Admitting Physician: Admtr, [...] 12:09:00 EDT, Aerosol, Route to Pharmacy Electronically, [id number], [facility], 163, cm, 01/12/22 [...] 07/13/21 11:12:00 EDT, Route to Pharmacy Electronically, [facility] 2174, Dose increase, 163, cm, [...] tablet, 3 Refills, Maintenance, 04/01/22 12:09:00 EST, [facility], 163, cm, 03/21/22 12:14:00 [...] Team Personnel Name: Aura Fox RN Position: [facility] ED RN W/OE and Tasks Member Role: Primary Care Nurse Name: Opal Gonzalez RN Position: [facility] RN Member Role: Primary Care Nurse Name: Tenisha Lara MD Position: [facility] General Pediatrics MD Member Role: PCP Address: Address: [address] [place] [id number] Name: Bettina Moran RN Position: [facility] RN Member Role: Primary Care Nurse Name: Britany Fuentes RN Position: [facility] ED RN W/OE and Tasks Member Role: Primary Care Nurse Name: Jenaro Evans MD Position: [facility] Cardiology MD Member Role: Lifetime Consulting Physician Address: Address: [address] [place] [address] [place] [address]- Name: Sandra Dubois RN Position: [facility] RN Member Role: Primary Care Nurse Name: Taylor Lopes RN Position: [facility] RN Member Role: Primary Care Nurse Name: Haresh Deal RN Position: [facility] SN RN Member Role: Primary Care Nurse Name: Taina Lambert RN Position: S RN Member Role: Primary Care Nurse Name: Teri Azevedo RN Position: [facility] SN RN Member Role: Primary Care Nurse Name: Zoie Abdalla RN Position: [facility] RN Member Role: Primary Care Nurse Care Team Related Persons Name: BESSIE ORTIZ Address: home [address] [place] [address] Name: SAMANTHA KHAN Address: home [address] [place] [address] Name: CARMEN WORTHY
--- OUTSIDE RECORDS SUMMARY | 2023-03-22 10:41 | XMS_ITS | Continuity of Care Document ---
Author Name Unknown Organization [facility] Address [address] [place] [address]- Care Team Providers Care Sweep Press Operator Name Role Phone Tenisha Lara MD Primary Care Physician [place] [facility] [place](s): 11/19/20 - 12/19/20 [facility] [address] [place] [address]- [place] Allergies, Adverse Reactions, Alerts Substance Reaction [...] 11/19/20 11:15:00 EDT, Route to Pharmacy Electronically, [facility] 2171, Partial fill upon patient request [...] 06/09/20 11:25:00 EST, Route to Pharmacy Electronically, [facility] 2174, 163, cm, 02/14/20 10:48:00 EST, Height, 99, kg, 09/19/19 18:05:00 EDT, Dry Weight Start Date: 06/09/20 Stop Date: 06/04/21 Status: Ordered dapagliflozin 5 mg oral tablet 1 tablet = 5 mg, By Mouth, Daily, # 90 tablet, 0 Refills, Maintenance, 10/27/20 11:53:00 EDT, Tablet, [facility] 3, Partial fill upon patient request if the prescription is for a scheduleII opioid drug., 163, cm, 10/27/20 7:45:00 EDT, Hei... Start Date: 10/27/20 Status: Ordered digoxin 0.125 mg oral tablet 1, tablet, By Mouth, Every Monday and , # 90 tablet, Refills 2, Tot. Refills 2, Maintenance, 10/30/20 10:00:00 EDT, Route to Pharmacy Electronically, [facility], 163, cm, 10/29/20 7:52:00 [...] 2 Refills, Maintenance, 04/24/20 11:22:00 EST, Tablet, [facility] 2174, 163, cm, 02/14/20 10:48:00 EST, [...] Gm, 11 Refills, Maintenance, 09/25/20 13:18:00 EDT, [facility], 163, cm, 09/25/20 12:08:00 EDT, Height, 101.6, kg, 08/24/20 19:11:00 EDT, Dry Weight Start Date: 09/25/20 Status: Ordered Tessalon Perles 100 mg oral capsule 1 capsule = 100 mg, By Mouth, 3 times a day, PRN Cough, # 14 capsule, 0 Refills, Maintenance, 06/24/20 0:38:00 EDT, Capsule, [facility] 2174, Partial fill upon [...] Gm, 11 Refills, Maintenance, 06/25/20 14:10:00 EDT, [facility], 164, cm, 06/24/20 0:51:00 [...]
--- OUTSIDE RECORDS SUMMARY | 2023-03-22 10:41 | XMS_ITS | Continuity of Care Document ---
Author Name Unknown Organization [facility] Address [address] [place] [address]- Care Team Providers Care Email Specialist Name Role Phone Tenisha Lara MD Primary Care Physician [place] [facility] [place] [place] [id number] Date(s): 05/13/21 - 06/12/21 [facility] [address] [place] [address]- Attending Physician: Admtr, Cesar8 Admitting Physician: Admtr, Ar8 Referring Physician: Admtr, Ar8 Allergies, Adverse Reactions, Alerts Substance Reaction Severity Status codeine headache Active Zestril cough Active Augmentin Active Bee Stings Active Arava Active penicillins 1 Active 1Tolerates cefepime Medications albuterol-ipratropium 3 mg-0.5 mg/3 ml inhalation solution 3 mL, Inhalation, 4 times a day, PRN As needed, # 30 each, 0 Refills, Maintenance, 05/21/19 9:59:00EST, Solution Start Date: 05/21/19 Status: Ordered amiodarone 200 mg oral tablet 200 mg, 1, tablet, By Mouth, Daily, # 30 tablet, Refills 5, Tot. Refills 5, Maintenance, 11/19/20 11:15:00 EDT, Route to Pharmacy Electronically, [facility], Partial fill upon patient request [...] Maintenance,12/31/20 16:52:00 EDT, Route to Pharmacy Electronically, [facility] 2174, Partial fill upon patient request if the prescription is for a schedule... Start Date: 12/31/20 Stop Date: 12/26/21 Status: Ordered dapagliflozin 5 mg oral tablet 1 tablet = 5 mg, By Mouth, Daily, # 90 tablet, 0 Refills, Maintenance, 10/27/20 11:53:00 EDT, Tablet, [facility] 3, Partial fill upon patient request if the prescription is for a scheduleII opioid drug., 163, cm, 10/27/20 7:45:00 EDT, Hei... Start Date: 10/27/20 Status: Ordered digoxin 0.125 mg oral tablet 1, tablet, By Mouth, Every Monday and , # 90 tablet, Refills 2, Tot. Refills 2, Maintenance, 10/30/20 10:00:00 EDT, Route to Pharmacy Electronically, [facility], 163, cm, 10/29/20 7:52:00 EDT, [...] tablet, 5 Refills, Maintenance, 05/17/21 7:35:00 EST, [facility] 1068, 1 tablet By Mouth 2 [...] 2 Refills, Maintenance, 04/24/20 11:22:00 EST, Tablet, [facility] 2174, 163, cm, 02/14/20 10:48:00 EST, [...] Gm, 11 Refills, Maintenance, 09/25/20 13:18:00 EDT, [facility], 163, cm, 09/25/20 12:08:00 EDT, [...] 0 Refills, Maintenance, 06/24/20 0:38:00 EDT, Capsule, [facility] [...] Gm, 11 Refills, Maintenance, 06/25/20 14:10:00 EDT, [facility] 2[facility], 164, cm, 06/24/20 0:51:00 EDT, [...]
--- OUTSIDE RECORDS SUMMARY | 2023-03-22 10:41 | XMS_ITS | Continuity of Care Document ---
Author Name Unknown Organization [facility] Address [address] [place] [address]- Care Team Providers Care Collections Associate Name Role Phone Tenisha Lara MD Primary Care Physician [place] [facility] [place](s): 07/02/21 - 08/01/21 [facility] [address] [place] [address]- [place] Allergies, Adverse Reactions, Alerts Substance Reaction Severity Status codeine headache Active penicillins 1 Active Arava Active Zestril cough Active Augmentin Active Bee Stings Active 1Tolerates cefepime Medications amiodarone 200 mg oral tablet 200 mg, 1, tablet, By Mouth, Daily, # 30 tablet, Refills 5, Tot. Refills 5, Maintenance, 11/19/20 11:15:00 EDT, Route to Pharmacy Electronically, [facility] 2174, Partial fill upon patient request if the prescription is for a schedule II opioid... Start Date: 11/19/20 Status: Ordered amLODIPine 10 mg oral tablet 10 mg, 1, tablet, By Mouth, Daily, # 90 tablet, Refills 11, Tot. Refills 11, Maintenance, 07/13/21 11:13:00 EDT, Route to Pharmacy Electronically, [facility] 2174, Partial fill upon [...] 07/13/21 11:12:00 EDT, Route to Pharmacy Electronically, [facility] 2174, Dose increase, 163, cm, 07/13/21 10:43:00 EDT, Height, 93.5, kg, ... Start Date: 07/13/21 Status: Ordered dapagliflozin 5 mg oral tablet 1 tablet = 5 mg, By Mouth, Daily, # 90 tablet, 0 Refills, Maintenance, 10/27/20 11:53:00 EDT, Tablet, [facility] 3, Partial fill upon patient [...] 2 Refills, Maintenance, 04/24/20 11:22:00 EST, Tablet, [facility] 2174, 163, cm, 02/14/20 [...] Gm, 11 Refills, Maintenance, 09/25/20 13:18:00 EDT, [facility] 2174, 163, cm, 09/25/20 12:08:00 EDT, Height, 101.6, kg, 08/24/20 19:11:00 EDT, Dry Weight Start Date: 09/25/20 Status: Ordered spironolactone 25 mg oral tablet 12.5 mg, 0.5, tablet, By Mouth, Daily, # 15 tablet, Refills 11, Tot. Refills 11, Maintenance, 07/13/21 11:14:00 EDT, Route to Pharmacy Electronically, [facility] 2174, Partial fill upon patientrequest if the prescription is for a schedule II op... Start Date: 07/13/21 Status: Ordered torsemide 20 mg oral tablet 1 tablet = 20 mg, By Mouth, Daily, # 90 tablet, 11 Refills, Maintenance, 07/13/21 11:14:00 EDT, Tablet, [facility] 2174, Partial fill upon [...]
--- OUTSIDE RECORDS SUMMARY | 2023-03-22 10:41 | XMS_ITS | Continuity of Care Document ---
Author Name Unknown Organization [facility] Address [address] [place] [address]- Care Team Providers Care Director Of Cardiac Cath Lab Name Role Phone Tenisha Lara MD Primary Care Physician Encounter [facility] Date(s): 01/20/21 - 02/19/21 [facility] [address] [place] [address]- [place] Allergies, Adverse Reactions, Alerts Substance Reaction [...] 11/19/20 11:15:00 EDT, Route to Pharmacy Electronically, [facility] 2171, Partial fill upon patient [...] Maintenance,12/31/20 16:52:00 EDT, Route to Pharmacy Electronically, [facility] 2174, Partial fill upon patient request if the prescription is for a schedule... Start Date: 12/31/20 Stop Date: 12/26/21 Status: Ordered dapagliflozin 5 mg oral tablet 1 tablet = 5 mg, By Mouth, Daily, # 90 tablet, 0 Refills, Maintenance, 10/27/20 11:53:00 EDT, Tablet, [facility], Partial fill upon patient request if the prescription is for a scheduleII opioid drug., 163, cm, 10/27/20 7:45:00 EDT, Hei... Start Date: 10/27/20 Status: Ordered digoxin 0.125 mg oral tablet 1, tablet, By Mouth, Every Monday and , # 90 tablet, Refills 2, Tot. Refills 2, Maintenance, 10/30/20 10:00:00 EDT, Route to Pharmacy Electronically, [facility], 163, cm, 10/29/20 7:52:00 [...] 2 Refills, Maintenance, 04/24/20 11:22:00 EST, Tablet, [facility] 2174, 163, cm, 02/14/20 10:48:00 EST, [...] Gm, 11 Refills, Maintenance, 09/25/20 13:18:00 EDT, [facility], 163, cm, 09/25/20 [...] 0 Refills, Maintenance, 06/24/20 0:38:00 EDT, Capsule, [facility] 2174, Partial fill upon [...] Gm, 11 Refills, Maintenance, 06/25/20 14:10:00 EDT, [facility]174, 164, cm, 06/24/20 [...]
--- OUTSIDE RECORDS SUMMARY | 2023-03-22 10:41 | XMS_ITS | Continuity of Care Document ---
Author Name Unknown Organization [facility] Address [address] [place] [address]- Care Team Providers Care Phlebotomy Lab Assistant Name Role Phone Tenisha Lara MD Primary Care Physician Encounter [facility] [place] [facility] R [id number] Date(s): 11/16/22 - 12/16/22 [facility] [address] [place] [address]- [place] Allergies, Adverse Reactions, Alerts Substance Reaction Severity Status codeine headache Active penicillins 1 Active Arava Active Bee Stings Active Augmentin Active Zestril cough Active 1Tolerates cefepime Medications albuterol CFC free 90 mcg/inh inhalation aerosol 2, puffs, Inhalation, 4 times a day, PRN, # 18 Gm, Refills 11, Tot. Refills 11, Maintenance, 01/12/22 12:09:00 EDT, Aerosol, Route to Pharmacy Electronically, [id number], [facility] 2174, 163, cm, 01/12/22 10:50:00 [...] 10/19/22 11:20:00 EDT, Route to Pharmacy Electronically, [facility] 2174, Partial fill upon patient request if the prescription is for a schedule II opioid d... Start Date: 10/19/22 Status: Ordered Breo Ellipta 100 mcg-25 mcg/inh inhalation powder 1 puffs, Inhalation, Daily, # 1 each, 11 Refills, Maintenance, 01/12/22 12:08:00 EDT, Inhaler, [facility] 2174, Partial fill upon [...] 07/01/22 11:12:00 EDT, Route to Pharmacy Electronically, [facility] 1068, Dose increase, 163, cm, 03/21/22 12:14:00 EST, Height, 87.3, kg, ... Start Date: 07/01/22 Stop Date: 06/15/25 Status: Ordered dapagliflozin 10 mg oral tablet 1 tablet = 10 mg, By Mouth, Daily, # 90 tablet, 11 Refills, Maintenance, 03/21/22 13:01:00 EST, Tablet, [facility] 1068, Dose increase, 163, cm, [...] day, # 60 tablet, 0 Refills, Maintenance, 11/21/22 11:45:00 EDT, [facility] 2174, 30, Take 1 tablet by mouth twice daily, 163, cm, 09/12/22 10:14:00 EDT, Height, 87.3, kg, 08/12/21 7:07:00 EDT, Dry Weight Start Date: 11/21/22 Status: Ordered EpiPen 2-Dave 0.3 mg injectable [...] 2 Refills, Maintenance, 04/24/20 11:22:00 EST, Tablet, [facility]174, 163, cm, 02/14/20 [...] each, 11 Refills, Maintenance, 01/12/22 12:08:00 EDT, [facility]174, 163, cm, 01/12/22 10:50:00 EDT, Height, 87.3, kg, 08/12/21 7:07:00 EDT, Dry Weight Start Date: 01/12/22 Stop Date: 01/07/23 Status: Ordered spironolactone 50 mg oral tablet 1 tablet = 50 mg, By Mouth, Daily, dose increase, # 90 tablet, 3 Refills, Maintenance, 05/05/22 11:55:00 EST, [facility] 1068, 163, cm, 03/21/22 12:14:00 EST, Height, 87.3, kg, 08/12/21 7:07:00EDT, Dry Weight Start Date: 05/05/22 Stop Date: 04/30/23 Status: Ordered torsemide 20 mg oral tablet 1 tablet = 20 mg, By Mouth, Daily, # 90 tablet, 11 Refills, Maintenance, 07/13/21 11:14:00 EDT, Tablet, [facility] 2174, Partial fill upon [...] Care team information Care Team Personnel Name: Tensiha Lara MD Position: [facility] Physician - Pediatrics Member Role: PCP Address: Address: [address] [place] [address]- Name: Bettina Moran RN Position: S RN Member Role: Primary Care Nurse Name: Britany Fuentes RN Position: S RN Member Role: Primary Care Nurse Name: Jenaro Evans MD Position: [facility] Cardiology MD Member Role: Lifetime Consulting Physician Address: Address: [address] [place] [address] [place] [address]- Name: Sandra Dubois RN Position: [facility] RN Member Role: Primary Care Nurse Name: Taylor Lopes RN Position: S RN Member Role: Primary Care Nurse Name: Haresh Deal RN Position: [facility] SN RN Member Role: Primary Care Nurse Name: Taina Lambert RN Position: [facility] RN Member Role: Primary Care Nurse Name: Teri Azevedo RN Position: [facility] SN RN Member Role: Primary Care Nurse Name: Zoie Abdalla RN Position: S RN Member Role: Primary Care Nurse Care Team Related Persons Name: BESSIE ORTIZ Address: home [address] [place] [address] Name: SAMANTHA KHAN Address: home [address] [place] [address] Name: CARMEN WORTHY
--- OUTSIDE RECORDS SUMMARY | 2023-03-22 10:41 | XMS_ITS | Continuity of Care Document ---
Author Name Unknown Organization [facility] Address [address] [place] [address]- Care Team Providers Care School Administrator Name Role Phone Tenisha Lara MD Primary Care Physician Encounter [facility] [place](s): 10/07/22 - 11/06/22 [facility] [address] [place] [address]- [place] Allergies, Adverse Reactions, Alerts Substance Reaction Severity Status codeine headache Active penicillins 1 Active Arava Active Zestril cough Active Augmentin Active Bee Stings Active 1Tolerates cefepime Medications albuterol CFC free 90 mcg/inh inhalation aerosol 2, puffs, Inhalation, 4 times a day, PRN, # 18 Gm, Refills 11, Tot. Refills 11, Maintenance, 01/12/22 12:09:00 EDT, Aerosol, Route to Pharmacy Electronically, [id number], [facility], 163, cm, 01/12/22 10:50:00 EDT,... Start Date: 01/12/22 Stop Date: 01/07/23 Status: Ordered amLODIPine 10 mg oral tablet 10 mg, 1, tablet, By Mouth, Daily, # 90 tablet, Refills 2, Tot. Refills 2, Maintenance, 10/19/22 11:20:00 EDT, Route to Pharmacy Electronically, [facility], Partial fill upon patient request if the prescription is for a schedule II opioid d... Start Date: 10/19/22 Status: Ordered Breo Ellipta 100 mcg-25 mcg/inh inhalation powder 1 puffs, Inhalation, Daily, # 1 each, 11 Refills, Maintenance, 01/12/22 12:08:00 EDT, Inhaler, [facility], Partial fill upon patient request if the prescription is for a schedule II opioiddrug., 1 puffs Inhalation Daily,x30 days, 163, cm,... Start Date: 01/12/22 Stop Date: 01/07/23 Status: Ordered carvedilol 25 mg oral tablet 50 mg, 2, tablet, By Mouth, 2 times a day, # 360 tablet, Refills 11, Tot. Refills 11, Maintenance, 07/01/22 11:12:00 EDT, Route to Pharmacy Electronically, [facility], Dose increase, 163, cm, 03/21/22 12:14:00 EST, Height, 87.3, kg, ... Start Date: 07/01/22 Stop Date: 06/15/25 Status: Ordered dapagliflozin 10 mg oral tablet 1 tablet = 10 mg, By Mouth, Daily, # 90 tablet, 11 Refills, Maintenance, 03/21/22 13:01:00 EST, Tablet, [facility], Dose increase, 163, cm, 03/21/22 [...] 11 Refills, Maintenance, 10/25/21 15:10:00 EDT, Tablet, [facility], Partial fill upon patient request if the [...] 2 Refills, Maintenance, 04/24/20 11:22:00 EST, Tablet, [facility], 163, cm, 02/14/20 10:48:00 EST, [...] each, 11 Refills, Maintenance, 01/12/22 12:08:00 EDT, [facility], 163, cm, 01/12/22 10:50:00 EDT, Height, 87.3, kg, 08/12/21 7:07:00 EDT, Dry Weight Start Date: 01/12/22 Stop Date: 01/07/23 Status: Ordered spironolactone 50 mg oral tablet 1 tablet = 50 mg, By Mouth, Daily, dose increase, # 90 tablet, 3 Refills, Maintenance, 05/05/22 11:55:00 EST, [facility], 163, cm, 03/21/22 12:14:00 EST, Height, 87.3, kg, 08/12/21 7:07:00EDT, Dry Weight Start Date: 05/05/22 Stop Date: 04/30/23 Status: Ordered torsemide 20 mg oral tablet 1 tablet = 20 mg, By Mouth, Daily, # 90 tablet, 11 Refills, Maintenance, 07/13/21 11:14:00 EDT, Tablet, [facility], Partial fill upon patient request [...] Team Personnel Name: Aura Fox RN Position: S ED RN W/OE and Tasks Member Role: Primary Care Nurse Name: Tenisha Lara MD Position: [facility] Physician - Pediatrics Member Role: PCP Address: Address: [address] [place] [address]- [place] Name: Bettina Moran RN Position: [facility] RN Member Role: Primary Care Nurse Name: Britany Fuentes RN Position: [facility] ED RN W/OE and Tasks Member Role: Primary Care Nurse Name: Jenaro Evans MD Position: [facility] Cardiology MD Member Role: Lifetime Consulting Physician Address: Address: [address] [place] [address]- Name: Sandra Dubois RN Position: [facility] RN Member Role: Primary Care Nurse Name: Taylor Lopes RN Position: [facility] RN Member Role: Primary Care Nurse Name: Haresh Deal RN Position: [facility] SN RN Member Role: Primary Care Nurse Name: Taina Lambert RN Position: [facility] RN Member Role: Primary Care Nurse Name: Teri Azevedo RN Position: [facility] SN RN Member Role: Primary Care Nurse Name: Zoie Abdalla RN Position: [facility] RN Member Role: Primary Care Nurse Care Team Related Persons Name: BESSIE ORTIZ Address: home [address] [place] [address] Name: SAMANTHA KHAN Address: home [address] [place] [address] Name: CARMEN WORTHY
--- OUTSIDE RECORDS SUMMARY | 2023-03-22 10:42 | XMS_ITS | Continuity of Care Document ---
Author Name Unknown Organization [facility] Address [address] [place] [address]- Care Team Providers Care Media Job Titles Name Role Phone Tenisha Lara MD Primary Care Physician Encounter [facility] [place] Date(s): 07/29/21 - 08/28/[address] [address]- Attending Physician: Jenaro Nicholas DO Admitting Physician: Jenaro Nicholas DO Referring Physician: Lara Conti MD Allergies, Adverse Reactions, Alerts Substance Reaction Severity Status codeine headache Active Bee Stings Active penicillins 1 Active Arava Active Zestril cough Active Augmentin Active 1Tolerates cefepime Medications amiodarone 200 mg oral tablet 200 mg, 1, tablet, By Mouth, Daily, # 30 tablet, Refills 5, Tot. Refills 5, Maintenance, 08/20/21 10:22:00 EDT, Route to Pharmacy Electronically, [facility], Partial fill upon patient request if the prescription is for a schedule II opioid... Start Date: 08/20/21 Status: Ordered amLODIPine 10 mg oral tablet 10 mg, 1, tablet, By Mouth, Daily, # 90 tablet, Refills 11, Tot. Refills 11, Maintenance, 07/13/21 11:13:00 EDT, Route to Pharmacy Electronically, [facility], Partial fill upon [...] 07/13/21 11:12:00 EDT, Route to Pharmacy Electronically, [facility], Dose increase, 163, cm, 07/13/21 10:43:00 EDT, Height, 93.5, kg, 2... Start Date: 07/13/21 Status: Ordered dapagliflozin 5 mg oral tablet 1 tablet = 5 mg, By Mouth, Daily, # 90 tablet, 0 Refills, Maintenance, 10/27/20 11:53:00 EDT, Tablet, [facility], Partial fill upon patient [...] 2 Refills, Maintenance, 04/24/20 11:22:00 EST, Tablet, [facility], 163, cm, 02/14/20 [...] Gm, 11 Refills, Maintenance, 09/25/20 13:18:00 EDT, [facility], 163, cm, 09/25/20 12:08:00 EDT, Height, 101.6, kg, 08/24/20 19:11:00 EDT, Dry Weight Start Date: 09/25/20 Status: Ordered spironolactone 25 mg oral tablet 12.5 mg, 0.5, tablet, By Mouth, Daily, # 15 tablet, Refills 11, Tot. Refills 11, Maintenance, 07/13/21 11:14:00 EDT, Route to Pharmacy Electronically, [facility], Partial fill upon patientrequest if the prescription is for a schedule II op... Start Date: 07/13/21 Status: Ordered torsemide 20 mg oral tablet 1 tablet = 20 mg, By Mouth, Daily, # 90 tablet, 11 Refills, Maintenance, 07/13/21 11:14:00 EDT, Tablet, [facility], Partial fill upon patient request [...]
--- OUTSIDE RECORDS SUMMARY | 2023-03-22 10:42 | XMS_ITS | Continuity of Care Document ---
Author Name Unknown Organization [facility] Address [address] [place] [address]- Care Team Providers Care Sales Operations Lead Name Role Phone Tenisha Lara MD Primary Care Physician [phone] Encounter [facility] [place] Date(s): 02/21/22 - 03/23/22 [facility] [address] [place] [address]- Allergies, Adverse Reactions, Alerts Substance Reaction Severity Status codeine headache Active penicillins 1 Active Arava Active Zestril cough Active Augmentin Active Bee Stings Active 1Tolerates cefepime Medications albuterol CFC free 90 mcg/inh inhalation aerosol 2, puffs, Inhalation, 4 times a day, PRN, # 18 Gm, Refills 11, Tot. Refills 11, Maintenance, 01/12/22 12:09:00 EDT, Aerosol, Route to Pharmacy Electronically, [id number], [facility], 163, cm, 01/12/22 10:50:00 EDT,... Start Date: 01/12/22 Stop Date: 01/07/23 Status: Ordered amiodarone 200 mg oral tablet 200 mg, 1, tablet, By Mouth, Daily, # 30 tablet, Refills 1, Tot. Refills 1, Maintenance, 02/21/22 12:41:00 EST, Route to Pharmacy Electronically, [facility]68, Partial fill upon patient request if the prescription is for a schedule II opioid... Start Date: 02/21/22 Stop Date: 04/22/22 Status: Ordered amLODIPine 10 mg oral tablet 10 mg, 1, tablet, By Mouth, Daily, # 90 tablet, Refills 11, Tot. Refills 11, Maintenance, 07/13/21 11:13:00 EDT, Route to Pharmacy Electronically, [facility], Partial fill upon patient request if the prescription is for a schedule II opioid... Start Date: 07/13/21 Status: Ordered Breo Ellipta 100 mcg-25 mcg/inh inhalation powder 1 puffs, Inhalation, Daily, # 1 each, 11 Refills, Maintenance, 01/12/22 12:08:00 EDT, Inhaler, [facility], Partial fill upon [...] 07/13/21 11:12:00 EDT, Route to Pharmacy Electronically, [facility], Dose increase, 163, cm, 07/13/21 10:43:00 EDT, Height, 93.5, kg, 2... Start Date: 07/13/21 Status: Ordered dapagliflozin 10 mg oral tablet 1 tablet = 10 mg, By Mouth, Daily, # 90 tablet, 11 Refills, Maintenance, 03/21/22 13:01:00 EST, Tablet, [facility], Dose increase, 163, [...] 11 Refills, Maintenance, 10/25/21 15:10:00 EDT, Tablet, [facility], Partial fill upon [...] 2 Refills, Maintenance, 04/24/20 11:22:00 EST, Tablet, [facility], 163, cm, 02/14/20 [...] each, 11 Refills, Maintenance, 01/12/22 12:08:00 EDT, [facility], 163, cm, 01/12/22 10:50:00 EDT, Height, 87.3, kg, 08/12/21 7:07:00 EDT, Dry Weight Start Date: 01/12/22 Stop Date: 01/07/23 Status: Ordered spironolactone 25 mg oral tablet 25 mg, 1, tablet, By Mouth, Daily, # 90 tablet, Refills 11, Tot. Refills 11, Maintenance, 10/25/21 15:11:00 EDT, Route to Pharmacy Electronically, [facility], Dose increase, 163, cm, 10/25/21 14:46:00 EDT, Height, 87.3, kg, 08/12/21 7:07:00... Start Date: 10/25/21 Status: Ordered torsemide 20 mg oral tablet 1 tablet = 20 mg, By Mouth, Daily, # 90 tablet, 11 Refills, Maintenance, 07/13/21 11:14:00 EDT, Tablet, [facility], Partial fill upon [...] Team Personnel Name: Aura Fox RN Position: [facility] ED RN W/OE and Tasks Member Role: Primary Care Nurse Name: Opal Gonzalez RN Position: S RN Member Role: Primary Care Nurse Name: Tenisha Lara MD Position: [facility] General Pediatrics MD Member Role: PCP Address: Address: [address] [place] [id number]- Name: Bettina Moran RN Position: [facility] RN Member Role: Primary Care Nurse Name: Britany Fuentes RN Position: [facility] ED RN W/OE and Tasks Member Role: Primary Care Nurse Name: Jenaro Evans MD Position: [facility] Cardiology MD Member Role: Lifetime Consulting Physician Address: Address: [address] [place] [address] [place] [address]- Name: Sandra Dubois RN Position: [facility] RN Member Role: Primary Care Nurse Name: Taylor Lopes RN Position: [facility] RN Member Role: Primary Care Nurse Name: Haresh Deal RN Position: [facility] SN RN Member Role: Primary Care Nurse Name: Taina Lambert RN Position: [facility] RN Member Role: Primary Care Nurse Name: Teri Azevedo RN Position: [facility] SN RN Member Role: Primary Care Nurse Name: Zoie Abdalla RN Position: S RN Member Role: Primary Care Nurse Care Team Related Persons Name: BESSIE ORTIZ Address: home [address] [place] [address] Name: SAMANTHA KHAN Address: home [address] [place] [address] Name: CARMEN WORTHY
--- OUTSIDE RECORDS SUMMARY | 2023-03-22 10:42 | XMS_ITS | Continuity of Care Document ---
Author Name Unknown Organization [facility] Address [address] [place] [address]- Care Team Providers Care Time Checker Name Role Phone Tenisha Lara MD Primary Care Physician Encounter [place] Date(s): 06/28/22 - 07/28/22 [facility] [address] [place] [address]- [place] Allergies, Adverse Reactions, Alerts Substance Reaction Severity Status codeine headache Active penicillins 1 Active Arava Active Zestril cough Active Augmentin Active Bee Stings Active 1Tolerates cefepime Medications albuterol CFC free 90 mcg/inh inhalation aerosol 2, puffs, Inhalation, 4 times a day, PRN, # 18 Gm, Refills 11, Tot. Refills 11, Maintenance, 01/12/22 12:09:00 EDT, Aerosol, Route to Pharmacy Electronically, [id number], [facility], 163, cm, 01/12/22 10:50:00 EDT,... Start Date: 01/12/22 Stop Date: 01/07/23 Status: Ordered amiodarone 200 mg oral tablet 200 mg, 1, tablet, By Mouth, Daily, # 90 tablet, Refills 2, Tot. Refills 2, Maintenance, 05/02/22 14:32:00 EST, Route to Pharmacy Electronically, [facility], 163, cm, 03/21/22 12:14:00 EST, Height, 87.3, kg, 08/12/21 7:07:00 EDT, Dry Weight Start Date: 05/02/22 Stop Date: 01/27/23 Status: Ordered amLODIPine 10 mg oral tablet 10 mg, 1, tablet, By Mouth, Daily, # 90 tablet, Refills 11, Tot. Refills 11, Maintenance, 07/13/21 11:13:00 EDT, Route to Pharmacy Electronically, [facility], Partial fill upon patient request if the prescription is for a schedule II opioid... Start Date: 07/13/21 Status: Ordered Breo Ellipta 100 mcg-25 mcg/inh inhalation powder 1 puffs, Inhalation, Daily, # 1 each, 11 Refills, Maintenance, 01/12/22 12:08:00 EDT, Inhaler, [facility], Partial fill upon patient [...] EDT, Route to Pharmacy Electronically, [facility], Dose increase, 163, cm, 03/21/22 12:14:00 EST, Height, 87.3, kg, ... Start Date: 07/01/22 Stop Date: 06/15/25 Status: Ordered dapagliflozin 10 mg oral tablet 1 tablet = 10 mg, By Mouth, Daily, # 90 tablet, 11 Refills, Maintenance, 03/21/22 13:01:00 EST, Tablet, [facility], Dose increase, 163, cm, [...] Maintenance, 10/25/21 15:10:00 EDT, Tablet, [facility], Partial fill upon patient [...] Maintenance, 04/24/20 11:22:00 EST, Tablet, [facility], 163, cm, 02/14/20 10:48:00 [...] Refills, Maintenance, 01/12/22 12:08:00 EDT, [facility], 163, cm, 01/12/22 10:50:00 EDT, Height, 87.3, kg, 08/12/21 7:07:00 EDT, Dry Weight Start Date: 01/12/22 Stop Date: 01/07/23 Status: Ordered spironolactone 50 mg oral tablet 1 tablet = 50 mg, By Mouth, Daily, dose increase, # 90 tablet, 3 Refills, Maintenance, 05/05/22 11:55:00 EST, [facility], 163, cm, 03/21/22 12:14:00 EST, Height, 87.3, kg, 08/12/21 7:07:00EDT, Dry Weight Start Date: 05/05/22 Stop Date: 04/30/23 Status: Ordered torsemide 20 mg oral tablet 1 tablet = 20 mg, By Mouth, Daily, # 90 tablet, 11 Refills, Maintenance, 07/13/21 11:14:00 EDT, Tablet, [facility], Partial fill upon patient [...] Team Personnel Name: Aura Fox RN Position: [facility] ED RN W/OE and Tasks Member Role: Primary Care Nurse Name: Tenisha Lara MD Position: [facility] General Pediatrics MD Member Role: PCP Address: Address: [address] [place] [address]- Name: Bettina Moran RN Position: [facility] RN Member Role: Primary Care Nurse Name: Britany Fuentes RN Position: [facility] RN Member Role: Primary Care Nurse Name: Jenaro Evans MD Position: [facility] Cardiology MD Member Role: Lifetime Consulting Physician Address: Address: [address] [place] [address] [facility] [place] [place] [address] Name: Sandra Dubois RN Position: [facility] RN Member Role: Primary Care Nurse Name: Taylor Lopes RN Position: [facility] RN Member Role: Primary Care Nurse Name: Haresh Deal RN Position: [facility] SN RN Member Role: Primary Care Nurse Name: Taina Lambert RN Position: [facility] RN Member Role: Primary Care Nurse Name: Teri Azevedo RN Position: [facility] SN RN Member Role: Primary Care Nurse Name: Zoie Abdalla RN Position: S RN Member Role: Primary Care Nurse Care Team Related Persons Name: BESSIE ORTIZ Address: home [address] [place] [address] Name: SAMANTHA KHAN Address: home [address] [place] [address] Name: CARMEN WORTHY
--- OUTSIDE RECORDS SUMMARY | 2023-03-22 10:42 | XMS_ITS | Continuity of Care Document ---
Author Name Unknown Organization [facility] Address [address] [place] [address]- Care Team Providers Care Cambering Machine Operator Name Role Phone Tenisha Lara MD Primary Care Physician En[place] [facility] [place] 12/23/22 - 01/22/23 [facility] [address] [place], [place] [address] Attending Physician: Admtr, Ar8 Admitting Physician: [...] 12:09:00 EDT, Aerosol, Route to Pharmacy Electronically, [id number], [facility], 163, cm, 01/12/22 10:50:00 [...] 10/19/22 11:20:00 EDT, Route to Pharmacy Electronically, [facility], Partial fill upon patient request if the prescription is for a schedule II opioid d... Start Date: 10/19/22 Status: Ordered Breo Ellipta 100 mcg-25 mcg/inh inhalation powder 1 puffs, Inhalation, Daily, # 1 each, 11 Refills, Maintenance, 01/12/22 12:08:00 EDT, Inhaler, [facility], Partial fill upon patient request if the prescription is for a schedule II opioiddrug., 1 puffs Inhalation Daily,x30 days, 163, cm,... Start Date: 01/12/22 Stop Date: 01/07/23 Status: Ordered carvedilol 25 mg oral tablet 50 mg, 2, tablet, By Mouth, 2 times a day, # 360 tablet, Refills 11, Tot. Refills 11, Maintenance, 07/01/22 11:12:00 EDT, Route to Pharmacy Electronically, [facility], Dose increase, 163, cm, 03/21/22 12:14:00 EST, Height, 87.3, kg, ... Start Date: 07/01/22 Stop Date: 06/15/25 Status: Ordered dapagliflozin 10 mg oral tablet 1 tablet = 10 mg, By Mouth, Daily, # 90 tablet, 11 Refills, Maintenance, 03/21/22 13:01:00 EST, Tablet, [facility]68, Dose increase, 163, cm, [...] tablet, 5 Refills, Maintenance, 12/21/22 12:30:00 EDT, [facility], 30, Take 1 tablet [...] Refills, Maintenance, 04/24/20 11:22:00 EST, Tablet, [facility], 163, cm, 02/14/20 10:48:00 [...] 11 Refills, Maintenance, 01/12/22 12:08:00 EDT, [facility], 163, cm, 01/12/22 10:50:00 EDT, Height, 87.3, kg, 08/12/21 7:07:00 EDT, Dry Weight Start Date: 01/12/22 Stop Date: 01/07/23 Status: Ordered spironolactone 50 mg oral tablet 1 tablet = 50 mg, By Mouth, Daily, dose increase, # 90 tablet, 3 Refills, Maintenance, 05/05/22 11:55:00 EST, [facility], 163, cm, 03/21/22 12:14:00 EST, Height, 87.3, kg, 08/12/21 7:07:00EDT, Dry Weight Start Date: 05/05/22 Stop Date: 04/30/23 Status: Ordered torsemide 20 mg oral tablet 1 tablet = 20 mg, By Mouth, Daily, # 90 tablet, 11 Refills, Maintenance, 07/13/21 11:14:00 EDT, Tablet, [facility], Partial fill upon patient [...] Team Personnel Name: Tenisha Lara MD Position: [facility] Physician - Pediatrics Member Role: PCP Address: Address: [address] [place] [address]- Name: Bettina Moran RN Position: [facility] RN Member Role: Primary Care Nurse Name: Britany Fuentes RN Position: S RN Member Role: Primary Care Nurse Name: Jenaro Evans MD Position: [facility] Cardiology MD Member Role: Lifetime Consulting Physician Address: Address: [address] [place] [address], [address] [place] [address] [place] [address]- Name: Sandra Dubois RN Position: [facility] RN Member Role: Primary Care Nurse Name: Taylor Lopes RN Position: [facility] RN Member Role: Primary Care Nurse Name: Haersh Deal RN Position: [facility] SN RN Member Role: Primary Care Nurse Name: Taina Lambert RN Position: [facility] RN Member Role: Primary Care Nurse Name: Teri Azevedo RN Position: [facility] SN RN Member Role: Primary Care Nurse Name: Zoie Abdalla RN Position: S RN Member Role: Primary Care Nurse Care Team Related Persons Name: BESSIE ORTIZ Address: home [address] [place] [address] Name: SAMANTHA KHAN Address: home [address] [place] [address] Name: CARMEN WORTHY
--- OUTSIDE RECORDS SUMMARY | 2023-03-22 10:42 | XMS_ITS | Continuity of Care Document ---
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 Name Role Phone Tenisha Lara MD Primary Care Physician Encounter [facility] Date(s): 08/03/20 - 08/03/[address] [address]- Encounter Diagnosis Congestive heart failure (CHF)(Final) - 08/03/20 Discharge Disposition: A-D/C Home Attending Physician: Manan Carolina MD Admitting Physician: Manan Carolina MD Referring Physician: Not on Staff, Referring [...] 06/09/20 11:25:00 EST, Route to Pharmacy Electronically, [facility], 163, cm, 02/14/20 10:48:00 EST, Height, 99, kg, 09/19/19 18:05:00 EDT, Dry Weight Start Date: 06/09/20 Stop Date: 06/04/21 Status: Ordered digoxin 0.125 mg oral tablet 0.125 mg, 1, tablet, By Mouth, Daily, # 30 tablet, Refills 2, Tot. Refills 2, Maintenance, 07/23/2114:03:00 EDT, Route to Pharmacy Electronically, [facility], Partial fill upon patient request if the prescription is for a schedule II opioi... Start Date: 07/23/20 Stop Date: 10/21/20 Status: Ordered Eliquis 5 mg oral tablet 1 tablet = 5 mg, By Mouth, 2 times a day, # 60 tablet, 0 Refills, Maintenance, 07/07/20 16:24:00 EDT, Tablet, [facility], Partial fill upon patient request if the prescription is for a schedule II opioid drug., 163, cm, 07/07/20 15:53:00 ED... Start Date: 07/07/20 Status: Ordered Entresto 49 mg-51 mg oral tablet 1 tablet, By Mouth, 2 times a day, # 180 tablet, 3 Refills, Maintenance, 12/06/19 9:20:00 EDT, Tablet, [facility], 1 tablet By Mouth [...] mL, 0 Refills, Maintenance, 06/26/20 22:05:00 EDT, [place], Partial fill upon patient request if the [...] Gm, 0 Refills, Maintenance, 04/13/20 16:46:00 EST, [facility], 163, cm, 02/14/20 10:48:00 EST, Height, 99, kg, 09/19/19 18:05:00 EDT, Dry Weight Start Date: 04/13/20 Stop Date: 05/13/20 Status: Ordered Tessalon Perles 100 mg oral capsule 1 capsule = 100 mg, By Mouth, 3 times a day, PRN Cough, # 14 capsule, 0 Refills, Maintenance, 06/24/20 0:38:00 EDT, Capsule, [facility], Partial fill [...] Gm, 11 Refills, Maintenance, 06/25/20 14:10:00 EDT, [facility], 164, cm, 06/24/20 [...] Exam Date Time Procedure Performing Provider Status 08/03/20 12:00 PM Chest Portable Kibe , Holley; Auth (Ve rified) Notes: (Chest Portable) Reason For Exam: Shortness of Breath RESULT: Chest Portable Chest Portable Reason: Shortness of Breath; Clinical Question(s): CHF COMPARISON: 06/26/2020 and 06/23/2020. FINDINGS: LINES AND TUBES: Again demonstrated is a triple lead intracardiac pacemaker. LUNGS AND PLEURA: Clear lungs. Normal pulmonary vascularity. No pleural effusion. No pneumothorax. HEART, MEDIASTINUM AND NATHALIA: The cardiomediastinal silhouette remains enlarged. BONES AND SOFT TISSUES: No acute abnormality. IMPRESSION: Persistent enlarged cardiomediastinal silhouette without evidence of pulmonary pathology. WSN: [id number] Ordering Physician: Abad Faust Dictated By: Madeline Jain MD Dictated Date/Time: 08/03/20 8:04 pm Reviewed By: Madeline Jain MD Signed By: Madeline Jain MD Signed Date/Time: 08/03/20 8:04 pm Transcribed By: RONALD Transcribed Date/Time: 08/03/20 8:03 pm Vital Signs Most recent to oldest [Reference Range]: 1 2 3 Height 160 cm (08/03/20 12:06 PM) Weight 104.5 kg (08/03/20 12:06 PM) Oxygen Saturation [94-100 %] 97 % (08/03/20 4:31 PM) 97 % (08/03/20 3:30 PM) 95 % (08/03/20 12:50 PM) Pulse Rate [55-90 bpm] 77 bpm (08/03/20 4:31 PM) 87 bpm (08/03/20 3:30 PM) 87 bpm (08/03/20 12:50 PM) Blood Pressure [90-138/55-84 mm Hg] 140/73mm Hg *H* (08/03/20 4:31 PM) 131/79mm Hg (08/03/20 3:30 PM) 130/65mm Hg (08/03/20 12:50 PM) Respiratory Rate [16-30 br/min] 23 br/min (08/03/20 4:31 PM) 18 br/min (08/03/20 3:30 PM) 33 br/min *H* (08/03/20 12:50 PM) Temperature [96.8-100.4 DegF] 98.9 DegF (08/03/20 12:08 PM) Liters per Minute 2 L/min (08/03/20 12:50 PM) 2 L/min (08/03/20 12:08 PM) 2 L/min (08/03/20 12:06 PM) Mode of Delivery (Oxygen) Room air (08/03/20 4:31 PM) Room air (08/03/20 3:30 PM) Nasal cannula (08/03/20 12:50 PM) Temperature Route Oral (08/03/20 12:08 PM) Dry Weight 104.5 kg (08/03/20 12:06 PM) Weight Obtained Via Patient/family state d (08/03/20 12:06 PM) Dry Weight Obtained Via Patient/family s tated (08/03/20 12:06 PM) Social History Social History Type Response Smoking Status Never (less than 100 in lifetime) entered on: 09/19/19 Sex
--- OUTSIDE RECORDS SUMMARY | 2023-03-22 10:42 | XMS_ITS | Continuity of Care Document ---
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 Refills 11, Maintenance, 01/12/22 12:09:00 EDT, Aerosol, Route to Pharmacy Electronically, [id number], [facility], 163, cm, 01/12/22 10:50:00 EDT,... Start Date: 01/12/22 Stop Date: 01/07/23 Status: Ordered amiodarone 200 mg oral tablet 200 mg, 1, tablet, By Mouth, Daily, # 30 tablet, Refills 5, Tot. Refills 5, Maintenance, 08/20/21 10:22:00 EDT, Route to Pharmacy Electronically, [facility], Partial fill upon patient request if the prescription is for a schedule II opioid... Start Date: 08/20/21 Status: Ordered amLODIPine 10 mg oral tablet 10 mg, 1, tablet, By Mouth, Daily, # 90 tablet, Refills 11, Tot. Refills 11, Maintenance, 07/13/21 11:13:00 EDT, Route to Pharmacy Electronically, [facility], Partial fill upon patient request if the prescription is for a schedule II opioid... Start Date: 07/13/21 Status: Ordered Breo Ellipta 100 mcg-25 mcg/inh inhalation powder 1 puffs, Inhalation, Daily, # 1 each, 11 Refills, Maintenance, 01/12/22 12:08:00 EDT, Inhaler, [facility], Partial fill upon patient request if the prescription is for a schedule II opioiddrug., 1 puffs Inhalation Daily,x30 days, 163, cm,... Start Date: 01/12/22 Stop Date: 01/07/23 Status: Ordered carvedilol 25 mg oral tablet 25 mg, 1, tablet, By Mouth, 2 times a day, # 180 tablet, Refills 11, Tot. Refills 11, Maintenance, 07/13/21 11:12:00 EDT, Route to Pharmacy Electronically, [facility], Dose increase, 163, cm, 07/13/21 10:43:00 EDT, Height, 93.5, kg, ... Start Date: 07/13/21 Status: Ordered dapagliflozin 5 mg oral tablet 1 tablet = 5 mg, By Mouth, Daily, # 30 tablet, 11 Refills, Maintenance, 12/15/21 12:12:00 EDT, Tablet, [facility], this is a dose [...] 11 Refills, Maintenance, 10/25/21 15:10:00 EDT, Tablet, [facility], Partial fill upon patient [...] 2 Refills, Maintenance, 04/24/20 11:22:00 EST, Tablet, [facility], 163, cm, 02/14/20 10:48:00 [...] each, 11 Refills, Maintenance, 01/12/22 12:08:00 EDT, [facility], 163, cm, 01/12/22 10:50:00 EDT, Height, 87.3, kg, 08/12/21 7:07:00 EDT, Dry Weight Start Date: 01/12/22 Stop Date: 01/07/23 Status: Ordered spironolactone 25 mg oral tablet 25 mg, 1, tablet, By Mouth, Daily, # 90 tablet, Refills 11, Tot. Refills 11, Maintenance, 10/25/21 15:11:00 EDT, Route to Pharmacy Electronically, [facility], Dose increase, 163, cm, 10/25/21 14:46:00 EDT, Height, 87.3, kg, 08/12/21 7:07:00... Start Date: 10/25/21 Status: Ordered torsemide 20 mg oral tablet 1 tablet = 20 mg, By Mouth, Daily, # 90 tablet, 11 Refills, Maintenance, 07/13/21 11:14:00 EDT, Tablet, [facility], Partial fill upon patient [...] Team Personnel Name: Aura Fox RN Position: [facility] ED RN W/OE and Tasks Member Role: Primary Care Nurse Name: Opal Gonzalez RN Position: [facility] RN Member Role: Primary Care Nurse Name: Tenisha Lara MD Position: [facility] General Pediatrics MD Member Role: PCP Address: Address: [address] [place], [place] [address] Name: Bettina Moran RN Position: [facility] RN Member Role: Primary Care Nurse Name: Jenaro Evans MD Position: [facility] Cardiology MD Member Role: Lifetime Consulting Physician Address: Address: [address] [place] [address] [place] [address]- Name: Sandra Dubois RN Position: [facility] RN Member Role: Primary Care Nurse Name: Taylor Lopes RN Position: [facility] RN Member Role: Primary Care Nurse Name: Haresh Deal RN Position: [facility] SN RN Member Role: Primary Care Nurse Name: Taina Lambert RN Position: [facility] RN Member Role: Primary Care Nurse Name: Teri Azevedo RN Position: [facility] SN RN Member Role: Primary Care Nurse Name: Zoie Abdalla RN Position: S RN Member Role: Primary Care Nurse Care Team Related Persons Name: BESSIE ORTIZ Address: home [address] [place] [address] Name: SAMANTHA KHAN Address: home [address] [place] [address]
--- OUTSIDE RECORDS SUMMARY | 2023-03-22 10:42 | XMS_ITS | Continuity of Care Document ---
Author Name Unknown Organization [facility] Address [address] [place] [address]- Care Team Providers Care Collections Attorney Name Role Phone Jane ECHEVERRIA, Tenisha Primary Care Physician [phone] [id number] Date(s): 09/18/19 - 09/20/[address] [address]- [facility] Discharge Disposition: A-D/C Home Attending Physician: Mary Chavez MD Admitting Physician: Jay Meza MD Referring Physician: Not on Staff, Referring [...] tablet, Refills 3, Tot. Refills 3, Maintenance, 06/11/19 12:08:00 EDT, Route to Pharmacy Electronically, [facility], 163, cm, 05/21/19 9:55:00 EST, Height, 93.5, kg, 11/14/18 20:45:00 EDT, Dry Weight Start Date: 06/11/19 Status: Ordered Entresto 97 mg-103 mg oral tablet 1 tablet, By Mouth, 2 times a day, # 180 tablet, 3 Refills, Maintenance, 08/01/19 13:26:00 EDT, Tablet, [facility], 1 tablet By Mouth 2 times a day, 163, cm, 07/31/19 8:51:00 EDT, Height, 93.5, kg, 11/14/18 20:45:00 EDT, Dry Weight Start Date: 08/01/19 Status: Ordered folic acid 1 mg oral tablet 1 mg, 1, tablet, By Mouth, Daily, # 30 tablet, Refills 0, Maintenance, 11/14/18 21:19:12 EDT Start Date: 11/14/18 Status: Ordered furosemide 20 mg oral tablet 60 mg, 3, tablet, By Mouth, 2 times a day, Refills 0, Maintenance, 03/06/18 14:21:00 EST Start Date: 03/06/18 Status: Ordered gabapentin 300 mg oral capsule 300 mg, 1, capsule, By Mouth, 3 times a day, # 63 capsule, Refills 0, Tot. Refills 0, Maintenance, 08/09/19 20:09:00 EDT, Route to Pharmacy Electronically, [facility], 163, cm, 08/09/19 19:56:00 EDT, Height, 99.3, kg, 08/09/19 19:56:00 EDT,... Start Date: 08/09/19 Stop Date: 08/30/19 Status: Ordered Imdur 60 mg oral tablet, [...] pain, # 25 tablet, 2 Refills, Maintenance, 08/09/19 11:11:00 EDT, Tablet, [facility], 163, cm, 07/31/19 8:51:00 EDT, Height, 93.5, kg, 11/14/18 20:45:00 EDT, Dry Weight Start Date: 08/09/19 Status: Ordered simvastatin 20 mg oral tablet [...] 12:21:00 EST, Aerosol, Route to Pharmacy Electronically, [id number], [facility], 163, cm, 05/21/19 9:55:00 [...] Exam Date Time Procedure Performing Provider Status 09/16/19 8:42 PM Chest Portable Angeles Cohen; Bibi ( Verified) Notes: (Chest Portable) Reason For Exam: Chest Pain;Other: RESULT: Chest Portable Chest Portable Reason: Other:; Chest Pain; Clinical Question(s): CHF COMPARISON: 08/09/2019. FINDINGS: LINES AND TUBES: Triple-lead left subclavian pacer/AICD wires are intact. LUNGS AND PLEURA: Clear lungs. Normal pulmonary vascularity. No pleural effusion. No pneumothorax. HEART, MEDIASTINUM AND NATHALIA: Mild prominence of the cardiac silhouette, unchanged. Normal mediastinal and hilar contour. BONES AND SOFT TISSUES: No acute abnormality. IMPRESSION: No acute abnormality. Exam limited by low lung volumes. WSN: [id number] Ordering Physician: Dixon Eckert Dictated By: Haresh Mcnamara MD Dictated Date/Time: 09/16/19 8:59 pm Reviewed By: Haresh Mcnamara MD Signed By: Haresh Mcnamara MD Signed Date/Time: 09/16/19 8:59 pm Transcribed By: RONALD Transcribed Date/Time: 09/16/19 8:59 pm Vital Signs Most recent to oldest [Reference Range]: 1 2 3 Height 163 cm (09/20/19 8:55 AM) 163 cm (09/19/19 8:00 PM) 163 cm (09/19/19 5:34 PM) Weight 99.0 kg (09/19/19 5:34 PM) 99.0 kg (09/16/19 10:16 PM) 99.0 kg (09/16/19 9:34 PM) Oxygen Saturation [94-100 %] 97 % (09/20/19 8:55 AM) 97 % (09/20/19 2:23 AM) 95 % (09/19/19 8:00 PM) Pulse Rate [55-90 bpm] 85 bpm (09/20/19 9:07 AM) 77 bpm (09/20/19 8:55 AM) 78 bpm (09/20/19 2:23 AM) Body Mass Index [18.5-24.99] 37.26 *>HHI* (09/19/19 5:34 PM) 37.26 *>HHI* (09/16/19 10:16 PM) Blood Pressure [90-138/55-84 mm Hg] 125/76mm Hg (09/20/19 9:07 AM) 125/66mm Hg (09/20/19 8:55 AM) 96/41mm Hg (09/20/19 2:23 AM) Respiratory Rate [16-30 br/min] 18 br/min (09/20/19 8:55 AM) 18 br/min (09/20/19 2:23 AM) 18 br/min (09/19/19 10:40 PM) Temperature [96.8-100.4 DegF] 97.7 DegF (09/20/19 8:55 AM) 98.0 DegF (09/20/19 2:23 AM) 97.7 DegF (09/19/19 8:00 PM) Mode of Delivery (Oxygen) Room air (09/20/19 8:55 AM) Room air (09/20/19 2:23 AM) Room air (09/19/19 8:00 PM) Blood pressure sites Arm, left (09/20/19 8:55 AM) Arm, right (09/20/19 2:23 AM) Arm, left (09/19/19 8:00 PM) Temperature Route Oral (09/20/19 8:55 AM) Oral (09/20/19 2:23 AM) Oral (09/19/19 8:00 PM) Dry Weight 99.0 kg (09/19/19 5:34 PM) 99.0 kg (09/16/19 10:16 PM) Weight Obtained Via Bed scale (09/16/19 9:34 PM) Social History Social History Type Response Smoking Status Never (less than 100 in lifetime) entered on: 09/19/19 Sex
--- OUTSIDE RECORDS SUMMARY | 2023-03-22 10:42 | XMS_ITS | Continuity of Care Document ---
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 Start Date: 11/19/20 Status: Ordered amLODIPine 10 mg oral tablet 10 mg, 1, tablet, By Mouth, Daily, # 90 tablet, Refills 11, Tot. Refills 11, Maintenance, 07/13/21 11:13:00 EDT, Route to Pharmacy Electronically, [facility], Partial fill upon patient [...] 07/13/21 11:12:00 EDT, Route to Pharmacy Electronically, [facility], Dose increase, 163, cm, 07/13/21 10:43:00 EDT, Height, 93.5, kg, 2... Start Date: 07/13/21 Status: Ordered dapagliflozin 5 mg oral tablet 1 tablet = 5 mg, By Mouth, Daily, # 90 tablet, 0 Refills, Maintenance, 10/27/20 11:53:00 EDT, Tablet, [facility], Partial fill upon patient request if [...] 2 Refills, Maintenance, 04/24/20 11:22:00 EST, Tablet, [facility], 163, cm, 02/14/20 10:48:00 [...] Gm, 11 Refills, Maintenance, 09/25/20 13:18:00 EDT, [facility], 163, cm, 09/25/20 12:08:00 EDT, Height, 101.6, kg, 08/24/20 19:11:00 EDT, Dry Weight Start Date: 09/25/20 Status: Ordered spironolactone 25 mg oral tablet 12.5 mg, 0.5, tablet, By Mouth, Daily, # 15 tablet, Refills 11, Tot. Refills 11, Maintenance, 07/13/21 11:14:00 EDT, Route to Pharmacy Electronically, [facility], Partial fill upon patientrequest if the prescription is for a schedule II op... Start Date: 07/13/21 Status: Ordered torsemide 20 mg oral tablet 1 tablet = 20 mg, By Mouth, Daily, # 90 tablet, 11 Refills, Maintenance, 07/13/21 11:14:00 EDT, Tablet, [facility], Partial fill upon patient [...]
--- OUTSIDE RECORDS SUMMARY | 2023-03-22 10:42 | XMS_ITS | Continuity of Care Document ---
Author Name Unknown Organization [facility] Address [address] [place] [address]- Care Team Providers Care Court Reporter Name Role Phone Tenisha Lara MD Primary Care Physician Encounter [facility] [place] Date(s): 05/10/21 - 06/30/21 [facility] [address] [place] [id number]- Attending Physician: Arden Jackson Admitting Physician: Arden Jackson Referring Physician: Tenisha Lara MD Allergies, Adverse Reactions, Alerts Substance Reaction Severity Status codeine headache Active penicillins 1 Active Arava Active Bee Stings Active Zestril cough Active Augmentin Active 1Tolerates cefepime Medications albuterol-ipratropium 3 mg-0.5 mg/3 ml inhalation solution 3 mL, Inhalation, 4 times a day, PRN As needed, # 30 each, 0 Refills, Maintenance, 05/21/19 9:59:00EST, Solution Start Date: 05/21/19 Status: Ordered amiodarone 200 mg oral tablet 200 mg, 1, tablet, By Mouth, Daily, # 30 tablet, Refills 5, Tot. Refills 5, Maintenance, 11/19/20 11:15:00 EDT, Route to Pharmacy Electronically, [facility], Partial fill upon patient request if the prescription is for a schedule II opioid... Start Date: 11/19/20 Status: Ordered amLODIPine 5 mg oral tablet 5 mg, 1, tablet, By Mouth, Daily, # 90 tablet, Refills 1, Tot. Refills 1, Maintenance, 06/29/21 14:04:00 EDT, Route to Pharmacy Electronically, [facility], Partial fill upon patient request if the prescription is for a schedule II opioid drCammy Start Date: 06/29/21 Status: Ordered Breo Ellipta 100 mcg-25 mcg/inh [...] Maintenance,12/31/20 16:52:00 EDT, Route to Pharmacy Electronically, [facility], Partial fill upon patient request if the prescription is for a schedule... Start Date: 12/31/20 Stop Date: 12/26/21 Status: Ordered dapagliflozin 5 mg oral tablet 1 tablet = 5 mg, By Mouth, Daily, # 90 tablet, 0 Refills, Maintenance, 10/27/20 11:53:00 EDT, Tablet, [facility], Partial fill upon patient request if the prescription is for a scheduleII opioid drug., 163, cm, 10/27/20 7:45:00 EDT, Hei... Start Date: 10/27/20 Status: Ordered digoxin 0.125 mg oral tablet 1, tablet, By Mouth, Every Monday and , # 90 tablet, Refills 2, Tot. Refills 2, Maintenance, 10/30/20 10:00:00 EDT, Route to Pharmacy Electronically, [facility], 163, cm, 10/29/20 [...] tablet, 5 Refills, Maintenance, 05/17/21 7:35:00 EST, [facility], 1 tablet By Mouth [...] 2 Refills, Maintenance, 04/24/20 11:22:00 EST, Tablet, [facility], 163, cm, 02/14/20 [...] Gm, 11 Refills, Maintenance, 09/25/20 13:18:00 EDT, [facility], 163, cm, 09/25/20 [...] 0 Refills, Maintenance, 06/24/20 0:38:00 EDT, Capsule, [facility], Partial fill upon [...] Gm, 11 Refills, Maintenance, 06/25/20 14:10:00 EDT, [facility], 164, cm, 06/24/20 [...]
--- OUTSIDE RECORDS SUMMARY | 2023-03-22 10:42 | XMS_ITS | Continuity of Care Document ---
Author Name Unknown Organization [facility] Address [address] [place] [address]- Care Team Providers Care Integrated Logistics Operations Manager Name Role Phone Tenisha Lara MD Primary Care Physician [phone] Encounter [facility] Date(s): 01/16/23 - 01/23/23 [facility] [address] [place] [address]- Encounter Diagnosis Venous insufficiency of both lower extremities(Discharge Diagnosis) - 01/16/23 Attending Physician: Martha Olson MD Admitting Physician: Martha Olson MD Referring Physician: Tenisha Lara MD Allergies, Adverse Reactions, Alerts Substance Reaction Severity Status codeine headache Active Bee Stings Active Augmentin Active penicillins 1 Active Arava Active Zestril cough Active 1Tolerates cefepime Medications albuterol CFC free 90 mcg/inh inhalation aerosol 2, puffs, Inhalation, 4 times a day, PRN, # 18 Gm, Refills 11, Tot. Refills 11, Maintenance, 01/12/22 12:09:00 EDT, Aerosol, Route to Pharmacy Electronically, [id number], [facility], 163, cm, 01/12/22 10:50:00 [...] 10/19/22 11:20:00 EDT, Route to Pharmacy Electronically, [facility], Partial fill upon patient request if the prescription is for a schedule II opioid d... Start Date: 10/19/22 Status: Ordered Breo Ellipta 100 mcg-25 mcg/inh inhalation powder 1 puffs, Inhalation, Daily, # 1 each, 11 Refills, Maintenance, 01/12/22 12:08:00 EDT, Inhaler, [facility], Partial fill upon patient request if the prescription is for a schedule II opioiddrug., 1 puffs Inhalation Daily,x30 days, 163, cm,... Start Date: 01/12/22 Stop Date: 01/07/23 Status: Ordered carvedilol 25 mg oral tablet 50 mg, 2, tablet, By Mouth, 2 times a day, # 360 tablet, Refills 11, Tot. Refills 11, Maintenance, 07/01/22 11:12:00 EDT, Route to Pharmacy Electronically, [facility], Dose increase, 163, cm, 03/21/22 12:14:00 EST, Height, 87.3, kg, ... Start Date: 07/01/22 Stop Date: 06/15/25 Status: Ordered dapagliflozin 10 mg oral tablet 1 tablet = 10 mg, By Mouth, Daily, # 90 tablet, 11 Refills, Maintenance, 03/21/22 13:01:00 EST, Tablet, [facility], Dose increase, 163, cm, [...] tablet, 5 Refills, Maintenance, 12/21/22 12:30:00 EDT, [facility], 30, Take 1 tablet [...] 2 Refills, Maintenance, 04/24/20 11:22:00 EST, Tablet, [facility], 163, cm, 02/14/20 10:48:00 [...] each, 11 Refills, Maintenance, 01/12/22 12:08:00 EDT, [facility], 163, cm, 01/12/22 10:50:00 EDT, Height, 87.3, kg, 08/12/21 7:07:00 EDT, Dry Weight Start Date: 01/12/22 Stop Date: 01/07/23 Status: Ordered spironolactone 50 mg oral tablet 1 tablet = 50 mg, By Mouth, Daily, dose increase, # 90 tablet, 3 Refills, Maintenance, 05/05/22 11:55:00 EST, [facility], 163, cm, 03/21/22 12:14:00 EST, Height, 87.3, kg, 08/12/21 7:07:00EDT, Dry Weight Start Date: 05/05/22 Stop Date: 04/30/23 Status: Ordered torsemide 20 mg oral tablet 1 tablet = 20 mg, By Mouth, Daily, # 90 tablet, 11 Refills, Maintenance, 07/13/21 11:14:00 EDT, Tablet, [facility], Partial fill upon patient [...] superficial veins of upper extremities Confirmed Active Diagnosis Diagnosis Type Effective Dates Health Status Clinical Service Informant Venous insufficiency of both lower extremities Discharge Diagnosis 01/16/23 Social History Social History Type Response Smoking Status Never (less than 100 in lifetime) entered on: 09/19/19 Sex Note * Tasha Carcamo: PERFORM, SIGN, VERIFY Event Display: Patient Education/Instruction Authored Date: [id number] [facility] [address] Clinical Summary Name SJ ORTIZ Age 77 Years 1945 PCP Tenisha Lara MD PCP Visit Date 01/16/2023 07:13:00 Additional Instructions: Scheduled Appointments?? Future Appointments ?*[facility] ?Phone:??--?Fax:??-- ?Appt. Date:??02/01/2023?10:20 AM ?Scheduled Provider:??[facility] ?*[facility] ?Phone:??--?Fax:??-- ?Appt. Date:??03/03/2023?10:20 AM ?Scheduled Provider:??[facility] ?*[facility] ?Phone:??--?Fax:??-- ?Appt. Date:??03/29/2023?7:40 AM ?Scheduled Provider:??[facility]ation Follow-Up Instructions ?? With: Address: When: Whitney ECHEVERRIA, Martha Kelley [address] [facility] [place] [address] , only if needed Diagnosis Venous insufficiency (chronic) (peripheral) Medications: Please continue your medications until treatment is completed or stopped by your provider. Discuss any questions related to medications with your provider. Medications to Continue with No Changes These medications were not printed or sent to your pharmacy Acetaminophen (Tylenol Caplet) 650 Milligram Oral every 4 hours as needed. Next Dose: Albuterol (albuterol CFC free 90 mcg/inh inhalation aerosol) 2 puff(s) Inhalation 4 times a day as needed Wheezing/Shortness of Breath for 30 Days. Refills: 11. Next Dose: amiODARONE (amiodarone 200 mg oral tablet) 1 tab(s) Oral Daily. Next Dose: Amlodipine (amLODIPine 10 mg oral tablet) 1 tab(s) Oral Daily. Refills: 2. Next Dose: apixaban (Eliquis 5 mg oral tablet) 1 tab(s) Oral twice a day. Next Dose: Carvedilol (carvedilol 25 mg oral tablet) 2 tab(s) Oral twice a day for 90 Days. Refills: 11. Next Dose: dapagliflozin (dapagliflozin 10 mg oral tablet) 1 tab(s) Oral Daily. Refills: 11. Next Dose: EPINEPHrine (EpiPen 2-Dave 0.3 mg injectable kit) 0.3 Milligram Intramuscular once. Next Dose: fluticasone-vilanterol (Breo Ellipta 100 mcg-25 mcg/inh inhalation powder) 1 puff(s) Inhalation Daily for 30 Days. Refills: 11. Next Dose: Insulin NPH (NovoLIN N FlexPen 100 units/mL subcutaneous suspension) Subcutaneous Infusion twice a day. Next Dose: Meclizine (meclizine 25 mg oral tablet) 1 tab(s) Oral 3 times a day. Next Dose: Miscellaneous Rx (DIURETIC INTERVENTION) Stardard Intervention for high PAD (PAD above goal for at least 2 readings) Double dose of loop diuretic for 2 days. Return to baseline dose of diuretics for at least 2 days. Repeat above if neccessary. If on once daily diuretics, increase to BID for 2 days. Standard Intervention for low PAD (PAD below goal for at least 2 readings) Hold PM dose of loop diuretic until PAD in range If on once daily diuretics, hold diuretic until PAD in range . Refills: 0. Next Dose: Nitroglycerin (nitroglycerin 0.4 mg sublingual tablet) 1 tab(s) Sublingual every 5 minutes as needed for chest pain. Refills: 2. Next Dose: Omeprazole (omeprazole 20 mg oral delayed release tablet) 1 tab(s) Oral Daily. Next Dose: sacubitril-valsartan (Entresto 97 mg-103 mg oral tablet) 1 tab(s) Oral twice a day. Refills: 5. Next Dose: Simvastatin (simvastatin 10 mg oral tablet) 1 tab(s) Oral Daily. Next Dose: Spironolactone (spironolactone 50 mg oral tablet) 1 tab(s) Oral Daily for 90 Days. dose increase. Refills: 3. Next Dose: Tiotropium (Spiriva Respimat 1.25 mcg/inh inhalation aerosol) 2 spray(s) Inhalation Daily for 30 Days. Refills: 11. Next Dose: torsemide (torsemide 20 mg oral tablet) 1 tab(s) Oral Daily. Refills: 11. Next Dose: Trazodone (traZODone 100 mg oral tablet) TAKE 1 2 TO 1 (ONE HALF TO ONE) TABLET BY MOUTH ONCE DAILYAT BEDTIME NEEDED FOR 30 DAYS. Next Dose: Allergy Info:?? Bee Stings; Augmentin; Zestril; Arava; penicillins; codeine Medications Given This Visit Future Orders ?No future orders Vital Signs Height Weight BMI Blood Pressure / Temperature Pulse Rate Respiratory Rate 02 Sat Mode of Delivery / You can now view a summary of your hospital visit from the comfort of your home through a free online portal called [facility]. [facility] is a website that allows you to securely view your medical information including discharge summary, medications and follow-up visits. ??You can alsosend a secure electronic message to your doctor???s office to request appointments, renew medications or just ask a question. You can enroll at [email or web address] or register during your next office visit. Disclaimer:?? The information provided is of a general nature and is intended to be used in conjunction with the recommendations and advice of your health care practitioner. ??Every effort has been made to ensure that the information provided is accurate and complete at the time it is provided to you however, as your needs change, or, as new ??information becomes available, different or additional instructions may be required. If you have questions, please consult with your primary care provider or pharmacist, as appropriate. ??This information is not intended to serve as substitution for assessment and evaluation by a qualified health care provider. If you do not have a primary care provider, you may find a [facility] provider by calling [facility] at [phone]. [facility], in keeping with [facility] guidance, no longer requires face masks for staff, patientsor visitors in most situations. Similar to time spent indoors at other locations, there is the chance that you were exposed to respiratory viruses during your time with us (such as flu or COVID-19).? If you develop symptoms concerning for a viral respiratory infection, please seek testing (and treatment if indicated) from your medical provider or home test kit. For information about the plan of care including goals and instructions for your diagnosis, please see the patient education orders section of this document. Patient Education Materials?? The content of this educational material or handout may have been modified, supplemented, or adapted from its original content and format to support your individualized medical care. Patient Care team information Care Team Personnel Name: Tenisha Lara MD [facility] Physician - Pediatrics Member Role: PCP Address: Address: [address] [place] [address]- Name: Bettina Moran RN Position: [facility] RN Member Role: Primary Care Nurse Name: Britany Fuentes RN Position: [facility] RN Member Role: Primary Care Nurse Name: Jenaro Evans MD Position: [facility] Cardiology MD Member Role: Lifetime Consulting Physician Address: Address: [address] [place] [address] [facility] [place] [address]- [place] Name: Sandra Dubois RN Position: S RN [...] Care Nurse Care Team Related Persons Name: OMARCHARUBESSIE Address: home [address] [place] [address] Name: SAMANHTA KHAN Address: home [address] [place] [address] Name: CARMEN WORTHY
--- OUTSIDE RECORDS SUMMARY | 2023-03-22 10:42 | XMS_ITS | Continuity of Care Document ---
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 Name Role Phone Tenisha Lara MD Primary Care Physician Encounter [facility] [id number] Date(s): 03/04/21 - 06/12/21 [facility] [address] [place] [address]- Attending Physician: Eleazar Yung MD Admitting Physician: [...] 11/19/20 11:15:00 EDT, Route to Pharmacy Electronically, [facility], Partial fill upon patient request if the [...] Maintenance,12/31/20 16:52:00 EDT, Route to Pharmacy Electronically, [facility], Partial fill upon patient request if the prescription is for a schedule... Start Date: 12/31/20 Stop Date: 12/26/21 Status: Ordered dapagliflozin 5 mg oral tablet 1 tablet = 5 mg, By Mouth, Daily, # 90 tablet, 0 Refills, Maintenance, 10/27/20 11:53:00 EDT, Tablet, [facility], Partial fill upon patient request if the prescription is for a scheduleII opioid drug., 163, cm, 10/27/20 7:45:00 EDT, Hei... Start Date: 10/27/20 Status: Ordered digoxin 0.125 mg oral tablet 1, tablet, By Mouth, Every Monday and , # 90 tablet, Refills 2, Tot. Refills 2, Maintenance, 10/30/20 10:00:00 EDT, Route to Pharmacy Electronically, [facility], 163, cm, 10/29/20 [...] tablet, 5 Refills, Maintenance, 05/17/21 7:35:00 EST, [facility], 1 tablet By Mouth 2 times a day,x30 days,Instr:dose increase, 163, cm, 04/09/21 15:22:00 EST, Height, 93.5, kg, 2... Start Date: 2/14/22 Stop Date: 11/13/21 Status: Ordered EpiPen 2-Dave [...] 2 Refills, Maintenance, 04/24/20 11:22:00 EST, Tablet, [facility], 163, cm, 02/14/20 [...] Gm, 11 Refills, Maintenance, 09/25/20 13:18:00 EDT, [facility], 163, cm, 09/25/20 [...] 0 Refills, Maintenance, 06/24/20 0:38:00 EDT, Capsule, [facility], Partial fill upon [...] Gm, 11 Refills, Maintenance, 06/25/20 14:10:00 EDT, [facility], 164, cm, 06/24/20 [...]
--- OUTSIDE RECORDS SUMMARY | 2023-03-22 10:42 | XMS_ITS | Continuity of Care Document ---
Author Name Unknown Organization [facility] Address [address] [place] [address]- Care Team Providers Care Certified Legal Investigator Name Role Phone Tenisha Lara MD Primary Care Physician [place] [facility] [place] 03/29/22 - 04/28/22 [facility] [address] [place] [address]- [place] Allergies, Adverse Reactions, Alerts Substance Reaction Severity Status codeine headache Active penicillins 1 Active Arava Active Zestril cough Active Augmentin Active Bee Stings Active 1Tolerates cefepime Medications albuterol CFC free 90 mcg/inh inhalation aerosol 2, puffs, Inhalation, 4 times a day, PRN, # 18 Gm, Refills 11, Tot. Refills 11, Maintenance, 01/12/22 12:09:00 EDT, Aerosol, Route to Pharmacy Electronically, [id number], [facility], 163, cm, 01/12/22 10:50:00 EDT,... Start Date: 01/12/22 Stop Date: 01/07/23 Status: Ordered amiodarone 200 mg oral tablet 200 mg, 1, tablet, By Mouth, Daily, # 30 tablet, Refills 1, Tot. Refills 1, Maintenance, 02/21/22 12:41:00 EST, Route to Pharmacy Electronically, [facility], Partial fill upon patient request if the prescription is for a schedule II opioid... Start Date: 02/21/22 Stop Date: 04/22/22 Status: Ordered amLODIPine 10 mg oral tablet 10 mg, 1, tablet, By Mouth, Daily, # 90 tablet, Refills 11, Tot. Refills 11, Maintenance, 07/13/21 11:13:00 EDT, Route to Pharmacy Electronically, [facility], Partial fill upon patient request if the prescription is for a schedule II opioid... Start Date: 07/13/21 Status: Ordered Breo Ellipta 100 mcg-25 mcg/inh inhalation powder 1 puffs, Inhalation, Daily, # 1 each, 11 Refills, Maintenance, 01/12/22 12:08:00 EDT, Inhaler, [facility], Partial fill upon patient [...] 11:12:00 EDT, Route to Pharmacy Electronically, [facility], Dose increase, 163, cm, 07/13/21 10:43:00 EDT, Height, 93.5, kg, ... Start Date: 07/13/21 Status: Ordered dapagliflozin 10 mg oral tablet 1 tablet = 10 mg, By Mouth, Daily, # 90 tablet, 11 Refills, Maintenance, 03/21/22 13:01:00 EST, Tablet, [facility], Dose increase, 163, cm, [...] 11 Refills, Maintenance, 10/25/21 15:10:00 EDT, Tablet, [facility], Partial fill upon patient [...] Refills, Maintenance, 04/24/20 11:22:00 EST, Tablet, [facility], 163, cm, 02/14/20 10:48:00 [...] each, 11 Refills, Maintenance, 01/12/22 12:08:00 EDT, [facility], 163, cm, 01/12/22 10:50:00 EDT, Height, 87.3, kg, 08/12/21 7:07:00 EDT, Dry Weight Start Date: 01/12/22 Stop Date: 01/07/23 Status: Ordered spironolactone 50 mg oral tablet 1 tablet = 50 mg, By Mouth, Daily, dose increase, # 30 tablet, 3 Refills, Maintenance, 04/01/22 12:09:00 EST, [facility], 163, cm, 03/21/22 12:14:00 EST, Height, 87.3, kg, 08/12/21 7:07:00EDT, Dry Weight Start Date: 04/01/22 Stop Date: 07/30/22 Status: Ordered torsemide 20 mg oral tablet 1 tablet = 20 mg, By Mouth, Daily, # 90 tablet, 11 Refills, Maintenance, 07/13/21 11:14:00 EDT, Tablet, [facility], Partial fill upon patient [...] Team Personnel Name: Aura Fox RN Position: [facility] ED RN W/OE and Tasks Member Role: Primary Care Nurse Name: Opal Gonzalez RN Position: S RN Member Role: Primary Care Nurse Name: Tenisha Lara MD Position: [facility] General Pediatrics MD Member Role: PCP Address: Address: [address] [place] [address]- Name: Bettina Moran RN Position: [facility] RN Member Role: Primary Care Nurse Name: Britany Fuentes RN Position: [facility] ED RN W/OE and Tasks Member Role: Primary Care Nurse Name: Jenaro Evans MD Position: [facility] Cardiology MD Member Role: Lifetime Consulting Physician Address: Address: [address] [place] [address] [place] [address]- Name: Sandra Dubois RN Position: [facility] RN Member Role: Primary Care Nurse Name: Taylor Lopes RN Position: [facility] RN Member Role: Primary Care Nurse Name: Haresh Deal RN Position: S RN Member Role: Primary Care Nurse Name: Taina Lambert RN Position: S RN Member Role: Primary Care Nurse Name: Teri Azevedo RN Position: [facility] SN RN Member Role: Primary Care Nurse Name: Zoie Abdalla RN Position: S RN Member Role: Primary Care Nurse Care Team Related Persons Name: BESSIE ORTIZ Address: home [address] [place] [address] Name: SAMANTHA KHAN Address: home [address] [place] [address] Name: CARMEN WORTHY
--- OUTSIDE RECORDS SUMMARY | 2023-03-22 10:42 | XMS_ITS | Continuity of Care Document ---
Author Name Unknown Organization [facility] Address [address] [place] [address]- Care Team Providers Care Director Prison Name Role Phone Tenisha Lara MD Primary Care Physician Encounter [facility] Date(s): 07/22/22 - 08/21/22 [facility] [address] [place] [address]- Attending Physician: Admtr, Ar8 Admitting Physician: Admtr, [...] 12:09:00 EDT, Aerosol, Route to Pharmacy Electronically, [id number], [facility], 163, cm, 01/12/22 10:50:00 EDT,... Start Date: 01/12/22 Stop Date: 01/07/23 Status: Ordered amiodarone 200 mg oral tablet 200 mg, 1, tablet, By Mouth, Daily, # 90 tablet, Refills 2, Tot. Refills 2, Maintenance, 05/02/22 14:32:00 EST, Route to Pharmacy Electronically, [facility], 163, cm, 03/21/22 12:14:00 EST, Height, 87.3, kg, 08/12/21 7:07:00 EDT, Dry Weight Start Date: 05/02/22 Stop Date: 01/27/23 Status: Ordered amLODIPine 10 mg oral tablet 10 mg, 1, tablet, By Mouth, Daily, # 90 tablet, Refills 11, Tot. Refills 11, Maintenance, 07/13/21 11:13:00 EDT, Route to Pharmacy Electronically, [facility], Partial fill upon patient request if the prescription is for a schedule II opioid... Start Date: 07/13/21 Status: Ordered Breo Ellipta 100 mcg-25 mcg/inh inhalation powder 1 puffs, Inhalation, Daily, # 1 each, 11 Refills, Maintenance, 01/12/22 12:08:00 EDT, Inhaler, [facility], Partial fill [...] 07/01/22 11:12:00 EDT, Route to Pharmacy Electronically, [facility], Dose increase, 163, cm, 03/21/22 12:14:00 EST, Height, 87.3, kg, ... Start Date: 07/01/22 Stop Date: 06/15/25 Status: Ordered dapagliflozin 10 mg oral tablet 1 tablet = 10 mg, By Mouth, Daily, # 90 tablet, 11 Refills, Maintenance, 03/21/22 13:01:00 EST, Tablet, [facility], Dose increase, [...] 11 Refills, Maintenance, 10/25/21 15:10:00 EDT, Tablet, [facility], Partial fill [...] 2 Refills, Maintenance, 04/24/20 11:22:00 EST, Tablet, [facility], 163, cm, [...] each, 11 Refills, Maintenance, 01/12/22 12:08:00 EDT, [facility], 163, cm, 01/12/22 10:50:00 EDT, Height, 87.3, kg, 08/12/21 7:07:00 EDT, Dry Weight Start Date: 01/12/22 Stop Date: 01/07/23 Status: Ordered spironolactone 50 mg oral tablet 1 tablet = 50 mg, By Mouth, Daily, dose increase, # 90 tablet, 3 Refills, Maintenance, 05/05/22 11:55:00 EST, [facility], 163, cm, 03/21/22 12:14:00 EST, Height, 87.3, kg, 08/12/21 7:07:00EDT, Dry Weight Start Date: 05/05/22 Stop Date: 04/30/23 Status: Ordered torsemide 20 mg oral tablet 1 tablet = 20 mg, By Mouth, Daily, # 90 tablet, 11 Refills, Maintenance, 07/13/21 11:14:00 EDT, Tablet, [facility], Partial fill [...] Team Personnel Name: Aura Fox RN Position: [facility] ED RN W/OE and Tasks Member Role: Primary Care Nurse Name: Tenisha Lara MD Position: [facility] General Pediatrics MD Member Role: PCP Address: Address: [address] [place] [address]- Name: Bettina Moran RN Position: [facility] RN Member Role: Primary Care Nurse Name: Britany Fuentes RN Position: [facility] RN Member Role: Primary Care Nurse Name: Jenaro Evans MD Position: [facility] Cardiology MD Member Role: Lifetime Consulting Physician Address: Address: [address] [place] [address] [place] [address]- Name: Sandra Dubois RN Position: [facility] RN Member Role: Primary Care Nurse Name: Taylor Lopes RN Position: [facility] RN Member Role: Primary Care Nurse Name: Haresh Deal RN Position: [facility] SN RN Member Role: Primary Care Nurse Name: Taina Lambert RN Position: [facility] RN Member Role: Primary Care Nurse Name: Teri Azevedo RN Position: [facility] SN RN Member Role: Primary Care Nurse Name: Zoie Abdlala RN Position: S RN Member Role: Primary Care Nurse Care Team Related Persons Name: BESSIE ORTIZ Address: home [address] [place] [address] Name: SAMANTHA KHAN Address: home [address] [place] [address] Name: CARMEN WORTHY
== END 2023-03-22 11:14 | disposition home or self-care (01) ==
LOC: HO.RHE 10:37
PROVIDERS: Visit Provider Student in an Organized Health Care Education/Training Program
DX: L40.9 Psoriasis, unspecified (principal); Z79.899 Other long term (current) drug therapy
CPT/HCPCS: 99214

== ENCOUNTER → 2023-03-22 10:37 | Outpatient (BNVA) | payer MEDICARE, MEDICAID, SELFPAY | PROVIDERS: Visit Provider Student in an Organized Health Care Education/Training Program | DX: L40.9 Psoriasis, unspecified (principal); Z79.899 Other long term (current) drug therapy | CPT/HCPCS: 99212 ==

== ENCOUNTER 2023-08-24 12:27 | Outpatient (AMB) | payer MEDICARE, MEDICAID, SELFPAY ==
--- NOTE | 2023-08-24 12:40 | MHC.OFFVIS ---
Vital Signs 08/24/23 12:47 Height 5 ft 3 in Weight 188 lb 11.451 oz BMI 33.4 BP 116/62 Blood Pressure Location Lt brachial Position Sitting Pulse 74 Pulse Oximetry (%) 96 Intake Visit Reasons: PSO Intake Note: Patient presents today for follow up. Reports she would like to discontinue MTX due to hair loss. Allergies leflunomide [Arava] Allergy (Intermediate, Verified 08/24/23 12:48) swollen lisinopril [Zestril] Allergy (Intermediate, Verified 08/24/23 12:48) Cough penicillin V Allergy (Intermediate, Verified 08/24/23 12:48) Rash Bees Allergy (Intermediate, Uncoded 08/24/23 12:48) Anaphylaxis Medication List - Last Reconciled 08/24/23 by Ken Currie MD albuterol sulfate 90 mcg/actuation (Ventolin HFA) inhalation albuterol sulfate 90 mcg/actuation (Ventolin HFA) 1 inh inhalation BID amlodipine 10 mg PO DAILY apixaban (Eliquis) 5 mg PO BID carvedilol 25 mg PO BID dapagliflozin propanediol (Farxiga) mg PO DAILY fluticasone furoate-vilanterol 100-25 mcg/dose (Breo Ellipta) 1 ea inhalation DAILY fluticasone furoate-vilanterol 100-25 mcg/dose (Breo Ellipta) 1 inh inhalation DAILY folic acid 1 mg PO DAILY insulin NPH isoph U-100 human (Novolin N NPH U-100 Insulin isophane) units subcut methotrexate sodium 12.5 mg (5 x 2.5 mg) PO QWEEK nystatin topical omeprazole 20 mg PO DAILY sacubitril-valsartan 97-103 mg (Entresto) tabs PO simvastatin 10 mg PO DAILY tiotropium bromide (Spiriva with HandiHaler) 1 cap inhalation DAILY torsemide mg PO DAILY HPI Comments Details: 77-year-old female with psoriasis returns for follow-up. She has been on methotrexate regularly since last visit. She states that her psoriasis is doing much better overall except for faint patches bilaterally on her lower back. She has had some hair loss with methotrexate and would like to discontinue it. Her last dose was a week ago. Initial history: This is a 77-year-old female with psoriasis and psoriatic arthritis who presents for follow-up. She was last evaluated by Dr. Cueto 10/2020. She states that she started having psoriasis in her early teens, she develops psoriatic arthritis 10-15 years ago. She stated that when she was started on methotrexate her psoriasis rash resolved completely. She would have swollen and tender joints. Over the last year or so patient has been having right shoulder stiffness and bilateral thumb pain. Her psoriasis has come back and she has rashes behind her right ear, her lower back and her umbilicus. She does not use a steroid cream [facility] Medical History (Updated 08/24/23 @ 13:09 by Ken Currie MD) Congestive cardiac failure Psoriasis Pacemaker Surgical History History of knee joint replacement Hx of cholecystectomy H/O: hysterectomy Family History Father CVD (cardiovascular disease) Mother Uterine cancer Social History Alcohol intake: current Alcohol intake frequency: holidays/special occasions only Patient Tobacco Use Status: Never used Tobacco Review of Systems Musc Denies joint swelling Skin/Breast Reports rash Physical Exam Vital Signs: Last Vital Signs Pulse 74 08/24/23 12:47 BP 116/62 08/24/23 12:47 Pulse Ox 96 08/24/23 12:47 BMI result Body Mass Index 33.4 Const General: cooperative, no acute distress and well developed Orientation/consciousness: patient oriented x3 HEENT Head: Yes normal to inspection Resp Effort & Inspection: normal respiratory effort and able to speak in complete sentences Auscultation: clear to auscultation bilaterally Skin Other: Faint Patches of psoriasis on her lower back, no other psoriasis patches noted. No psoriasis patches behind ears or on abdomen Skin lesion with crusting on the right side of her nose. Neuro General: patient oriented x3 Extrem Other: No synovitis on exam. Bilateral Heberden's nodes Assessment & Plan Assessment & Plan (1) Psoriasis: Comment: PSO dx in teens PsA dx approx 2005 MTX 01/2023 effective but caused hair loss DC 08/2023 Code(s): L40.9 - Psoriasis, unspecified Category: Medical Plan: This is a 77-year-old female with psoriasis? who presents for follow-up.? She has been on methotrexate regularly for the last 6-7 months with significant improvement in her psoriasis. In is almost clear except for faint patches on her lower back. Patient would like to discontinue methotrexate due to hair loss. She will need another DMARD. Discussed risks and benefits of Otezla. Patient agreed to proceed. I provided patient with Otezla starter pack sample. Advised patient to call the clinic and let us know how she feels with Otezla over the coming few weeks. If well tolerated, will start prior authorization for Otezla Labs today and before next visit in 3 months (2) Skin lesion of face: Code(s): L98.9 - Disorder of the skin and subcutaneous tissue, unspecified Category: Medical Plan: Lesion on right side of nose. Skin cancer needs to be ruled out. Patient has an appointment with biodiesel process control technician in October Plan I spent 26 minutes reviewing patient's chart, evaluating patient, ordering diagnostic workup, counseling patient and documenting in the chart Orders: Orders Comprehensive Met. Panel Today L40.9 - Psoriasis, unspecified, Z79.899 - Other termite exterminator helper (current) drug therapy Complete Blood Count Auto Diff 3 Months L40.9 - Psoriasis, unspecified Comprehensive Met. Panel 3 Months L40.9 - Psoriasis, unspecified Complete Blood Count Auto Diff Today L40.9 - Psoriasis, unspecified, Z79.899 - Other termite exterminator helper (current) drug therapy C Reactive Protein Today L40.9 - Psoriasis, unspecified, Z79.899 - Other termite exterminator helper (current) drug therapy Erythrocyte Sedimentation Rate Today L40.9 - Psoriasis, unspecified, Z79.899 - Other termite exterminator helper (current) drug therapy C Reactive Protein 3 Months L40.9 - Psoriasis, unspecified Erythrocyte Sedimentation Rate 3 Months L40.9 - Psoriasis, unspecified Medications: New apremilast (Otezla Starter) Otezla starter pack sample 27 tablets Lot # [id number] Exp date: 07/01/2025 27 ea 0RF Coding Level of Care Code Est Pt Level 4 (32286) Diagnoses Psoriasis L40.9 Skin lesion of face L98.9
[2023-08-24 12:47] VITALS: BP 116/62; PULSE 74; O2SAT 96; BMI 33.4
== END 2023-08-24 13:03 | disposition home or self-care (01) ==
PROVIDERS: Visit Provider Student in an Organized Health Care Education/Training Program
DX: L40.9 Psoriasis, unspecified (principal); L98.9 Disorder of the skin and subcutaneous tissue, unspecified
CPT/HCPCS: 99214

== ENCOUNTER → 2023-08-24 12:27 | Outpatient (BNVA) | payer MEDICARE, MEDICAID, SELFPAY | PROVIDERS: Visit Provider Student in an Organized Health Care Education/Training Program | DX: L40.9 Psoriasis, unspecified (principal); L98.9 Disorder of the skin and subcutaneous tissue, unspecified; L65.9 Nonscarring hair loss, unspecified; Z79.631 Long term (current) use of antimetabolite agent | CPT/HCPCS: 99212 ==

== ENCOUNTER 2023-10-30 11:10 | Outpatient (REF) | payer MEDICARE, MEDICAID, SELFPAY ==
[2023-10-30 11:36] LABS: MANUAL DIFF FLAG NO
[2023-10-30 12:13] LABS: Basophils Absolute Auto 0.1 X10*3/uL (0.0-0.2); Basophils Percent Auto 0.7 % (0-2); Eosinophils Absolute Auto 0.2 X10*3/uL (0.0-0.4); Eosinophils Percent Auto 2.7 % (0-4); Hematocrit 43.1 % (37.0-47.0); Hemoglobin 13.8 g/dl (12.0-16.0); Imm Gran Abs Auto 0.01 X10*3/uL (0.00-0.03); Imm Gran Pct Auto 0.1 % (0.0-0.4); Lymphocytes Absolute Auto 1.4 X10*3/uL (1.2-4.9); Lymphocytes Percent Auto 19.8 % (20-40); Mean Corpuscular Hemoglobin 27.4 pg (27.0-33.0); Mean Corpuscular Volume 85.5 fL (80.0-98.0); Monocytes Absolute Auto 0.6 X10*3/uL (0.1-1.2); Monocytes Percent Auto 8.1 % (2-11); Neutrophils Absolute Auto 4.9 x10*3/uL (2.0-8.3); Neutrophils Percent Auto 68.6 % (45-73); Platelet Count 142 X10*3/uL (160-400); Red Blood Count 5.04 X10*6/uL (4.20-5.50); Red Cell Distribution Width 17.1 % (11.0-16.0); White Blood Count 7.1 X10*3/uL (4.8-10.8)
[2023-10-30 12:55] LABS: Erythrocyte Sedimentation Rate 7 MM/HR (0-20)
[2023-10-30 13:04] LABS: Alanine Aminotransferase 17 U/L (0-31); Alkaline Phosphatase 72 U/L (39-117); Anion Gap 13 (12-20); Aspartate Amino Transferase 16 U/L (5-31); Bilirubin Total 0.3 mg/dL (0.0-1.0); Blood Urea Nitrogen 22 mg/dL (9-16); C Reactive Protein 0.19 mg/dL (< or = 0.50); Calcium 9.4 mg/dL (8.4-10.2); Carbon Dioxide 24 mmol/L (22-29); Chloride 108 mmol/L (96-108); Estimated Glomerular Filt Rate 48; Glucose Random 140 mg/dL (60-115); Potassium 4.7 mmol/L (3.3-5.1); Sodium 140 mmol/L (135-145)
== END 2023-10-30 11:11 | disposition home or self-care (01) ==
LOC: HO.LAB 11:10
PROVIDERS: PCP Internal Medicine; Visit Provider Student in an Organized Health Care Education/Training Program
DX: L40.9 Psoriasis, unspecified (principal); Z79.899 Other long term (current) drug therapy
CPT/HCPCS: 36415; 80053; 85025; 85652; 86140

== ENCOUNTER 2024-09-04 10:35 | Outpatient (REF) | payer MEDICARE, MEDICAID, SELFPAY ==
[2024-09-04 10:48] LABS: MANUAL DIFF FLAG NO
--- OUTSIDE RECORDS SUMMARY | 2024-09-04 11:24 | XMS_ITS | Clinical Summary ---
Author Organization [employer] Address [address] [place] [address] Care Team Providers Care Flat Ironer Name Role Phone Tenisha Lara MD Primary Care Provider [phone] Allergies Active Allergy Reactions Criticality Noted Date Comments Amoxicillin-Pot Clavulanate 07/20/2022 Other reaction(s): Encephalopathy Bee Venom Anaphylaxis High 07/20/2022 Codeine Headache 07/20/2022 Leflunomide 07/20/2022 Other reaction(s): flu like symptoms Lisinopril Cough 07/20/2022 Penicillin G 07/20/2022 Other reaction(s): flushed and red Tolerates cefepime Penicillinase Photosensitivity 12/12/2019 Other Reaction(s): Other: See Comments Vancomycin Other 03/09/2012 Other Reaction(s): Other: See Comments Red Man Red Man Medications Farxiga 10 MG Take 10 mg by mouth in the morning. 023 Active Lancet Devices (Autolet) lancing deviceIndication s:Type 2 diabetes mellitus with diabetic peripheral angiopathy without gangrene, without long-term current use of insulin ([facility]) use three times daily and as needed for 30 days 1 each 3 023 Active albuterol (2.5 MG/3ML) 0.083% nebulizer solution 3 mL. Active Ventolin HFA 108 (90 Base) MCG/ACT inhaler PRN 022 Active amLODIPine (Norvasc) 10 MG tablet Take 10 mg by mouth in the morning. 023 Active Blood Glucose Monitoring Suppl (ONE TOUCH ULTRA 2) w/Device kit USE TO CHECK GLUCOSE ONE TO THREE TIMES DAILY 022 Active Breo Ellipta 100-25 MCG/ACT aerosol powder Inhale 1 puff Once per day. PRN 022 Active Spiriva Respimat 1.25 MCG/ACT inhaler PRN Active nystatin (Mycostatin) creamIndications :Yeast infection Apply topically 2 times daily. 45 g 023 Active glucose blood (MeaningfyTouch Ultra) test stripIndications :Type 2 diabetes mellitus with diabetic peripheral angiopathy without gangrene, with long-term current use of insulin (CMS/HCC) USE 1 STRIP TO CHECK GLUCOSE TWICE DAILY NEEDED 50 each 023 Active sacubitril-valsa rtan (Entresto) 97-103 MG tablet Take 1 tablet by mouth 2 times daily. Active EPINEPHrine (Epipen) 0.3 MG/0.3ML injection syringe Inject 0.3 mL (0.3 mg) as directed 1 (one) time for 1 dose. 1 each Active nitroglycerin (Nitrostat) 0.4 MG SL tabletIndication s:Nonischemic cardiomyopathy (CMS/HCC) Place 1 tablet (0.4 mg) under the tongue every 5 (five) minutes if needed for chest pain. May repeat every 5 minutes as needed for a total of 3 tablets in 15 minutes. If pain persists after 3 doses, seek immediate medical attention. 25 tablet Active carvedilol (Coreg) 25 MG tablet Take 1 tablet (25 mg) by mouth 2 times daily. 180 tablet 3 024 2024 Active spironolactone (Aldactone) 25 MG tabletIndication s:Nonischemic cardiomyopathy (CMS/HCC) Take 2 tablets (50 mg) by mouth Once per day. 180 tablet 3 024 2024 Active meclizine (Antivert) 25 MG tabletIndication s:Vertigo Take 1 tablet (25 mg) by mouth if needed in the morning, at noon, and at bedtime for dizziness. 90 tablet 1 Active apixaban (Eliquis) 5 MG tabletIndication s:Atrial fibrillation, unspecified type (CMS/HCC) Take 1 tablet (5 mg) by mouth 2 times daily. 180 tablet 3 024 2024 Active traZODone (Desyrel) 100 MG tabletIndication s:Depression with anxiety TAKE 1 TO 2 TABLETS BY MOUTH ONCE DAILY NEEDED 180 tablet 025 Active NovoLIN N 100 UNIT/ML injectionIndicat ions:Type 2 diabetes mellitus with hyperglycemia, with long-term current use of insulin ([facility]) INJECT 25 UNITS SUBCUTANEOUSLY BEFORE BREAKFAST AND BEFORE SUPPER 20 mL 025 Active omeprazole (PriLOSEC) [address] capsuleIndicatio ns:Gastroesophag eal reflux disease without esophagitis Take 1 capsule (20 mg) by mouth before breakfast. Do not crush or chew. 90 capsule 3 025 2025 Active simvastatin (Zocor) 10 MG tabletIndication s:Type 2 diabetes mellitus with diabetic peripheral angiopathy without gangrene, without long-term current use of insulin ([facility]) Take 1 tablet by mouth in the evening 90 tablet 025 Active simvastatin (Zocor) 10 MG tabletIndication s:Type 2 diabetes mellitus with diabetic peripheral angiopathy without gangrene, without long-term current use of insulin ([facility]) Take 1 tablet by mouth in the evening 90 tablet 025 2024 Discontinued omeprazole (PriLOSEC) [address] capsuleIndicatio ns:Gastroesophag eal reflux disease without esophagitis Take 1 capsule by mouth once daily in the morning 30 capsule 025 2024 Discontinued(R eorder (will not trigger notification to Pharmacy)) omeprazole (PriLOSEC) [address] capsuleIndicatio ns:Gastroesophag eal reflux disease without esophagitis Take 1 capsule (20 mg) by mouth before breakfast. Do not crush or chew. 90 capsule 3 025 2024 Discontinued(R eorder (will not trigger notification to Pharmacy)) Active Problems Problem Noted Date Diagnosed Date Closed displaced fracture of fifth metatarsal bone of right foot with routine healing 08/26/2022 Overview (08/26/2022): Fractured 08/[address] Duarte Anxiety 08/25/2022 Asthma 08/25/2022 CHF (congestive heart failure) 08/25/2022 Left bundle branch block 08/25/2022 Diabetic polyneuropathy asso ciated with type 2 diabetes mellitus 08/25/2022 Diabetic renal disease 08/25/2022 Mild intermittent asthma with exacerbation 08/25 Nonischemic cardiomyopathy 08/25/2022 Primary insomnia 08/25/2022 Psoriasis 08/25/2022 Rapid atrial fibrillation 08/25/2022 Psoriatic arthritis 08/25/2022 ICD (implantable cardioverter-defibrillator) in place 09/29/2017 Overview (08/25/2022): [employer] biventricular Last Assessment & Plan: -Device check completed in office today under separate report. She will continue to have both routine in office and remote device checks. technician terminal and repeater current use of anticoagulant therapy 1 Type 2 diabetes mellitus 09/10/2014 Overview (08/25/2022): Diabetes mellitus Encounters Date Type Department Care Team Description 08/22/2024 [facility] MED[facility] [address] [place] [address] Tenisha Lara MD Type 2 diabetes mellitus with diabetic peripheral angiopathy without gangrene, without long-term current use of insulin ([facility]) 08/20/2024 [facility] [address] [place] [address] Tenisha Lara MD Gastroesophageal reflux disease without esophagitis 08/14/2024 [facility] [address] [place] [address] Tenisha Lara MD Gastroesophageal reflux disease without esophagitis 07/16/2024 [facility] [address] [place] [address] Tenisha Lara MD Gastroesophageal reflux disease without esophagitis 07/16/2024 [facility] [address] [place] [address] Tenisha Lara MD Type 2 diabetes mellitus with hyperglycemia, with long-term current use of insulin ([facility]) 06/28/2024 Refill [facility] MED[facility] [address] [place] [address] Tenisha Lara MD Depression with anxiety 06/08/2024 Refill [facility] [address] [place] [address] Tenisha Lara MD Gastroesophageal reflux disease without esophagitis from Last 3 Months Immunizations Immunization Administration Dates Next Due Influenza High-dose Quadriva lent Preservative Free 01/10/2023,01/20/2022,03/04/2020 Influenza injectable quadriv alent preservative free 01/10/2019,01/16/2015 Influenza, High Dose Seasona l, Preservative Free 11/26/2016 Influenza, IIV3, injectable 01/04/2018,1 04/03/2015,01/17/2014,01/18 Influenza, Split (incl. moe fied surface antigen) 01/12/2012,02/08/2011,12/18/2009 Pneumococcal Conjugate PCV 13 10/25/2015, 010 Pneumococcal Polysaccharide PPSV23 01/16/2015 TD (adult), 2 Lf tetanus tox oid, preservative free, adsorbed 09/25/2023,07/01/2009 Tdap 07/01/2009 Zoster, live 09/25/2023 Family History Medical History Relation Name Comments CVD Father Uterine cancer Mother Smoker Son Relation Name Status Comments Brother 1 Brother 2 Father Mother Son Social History Tobacco Use Types Packs/Day Years Used Date Smoking Tobacco: Never Tobacco Cessation:Counseling Given: Not Answered Alcohol Use Standard Drinks/Week Comments Yes 0 (1 standard drink = 0.6 oz pur e alcohol) Housing Stability Answer Date Recorded What is your housing situation today? I have clint sing 09/25/[address] you li ve. Do you have problems with any of the following? None of the above 09/25/2023 Food Insecurity Answer Date Recorded Within the past 12 months, y ou worried that your food would run out before you got money to buy more: Never True 09/25/2023 Within the past 12 months,th e food you bought just didn't last and you didn't have enough money to get more: Never True Transportation Answer Date Recorded In the past 12 months, has l ack of transportation kept you from medical appts, meetings, work or from getting things needed for daily living? No 09/25/2023 Utilities Answer Date Recorded In the past 12 months, has t he electric, gas, oil or water company threatened to shut off services in your home? No 09/25/2023 Depression Answer Date Recorded Patient Health Questionnaire-2 Score 0 11/02/2023 Internet Access Answer Date Recorded Internet Access Q1 Yes 12/04/2023 Internet Access Q2 Not on file 12/04/2023 Comments Unknown Sex and Gender Information Value Date Recorded Sex Assigned at Female 01/31/2022 10:30 AM EDT Legal Sex Female 10:30 AM EDT Gender Identity Female 08/25/2022 8:29 AM EDT Sexual Orientation Choose not to disclose 2022 8:29 AM EDT Last Filed Vital Signs Vital Sign Reading Time Taken Comments Blood Pressure 96/64 11/02/2023 8:32 AM EDT Pulse 85 11/02/2023 8:32 AM EDT Temperature 35.9 ??C (96.7 ??F) 11/02/2023 8:32 AM ED T Respiratory Rate 16 11/02/2023 8:32 AM EDT Oxygen Saturation 99% 11/02/2023 8:32 AM EDT Inhaled Oxygen Concentration - - Weight 83 kg (183 lb) 11/02/2023 8:32 AM EDT Height 162.6 cm (5' 4 ) 11/02/2023 8:32 AM EDT Body Mass Index 31.41 11/02/2023 8:32 AM EDT Plan of Treatment Upcoming Encounters Date Type Department Care Team (Late st Contact Info) Description 09/19/2024 9:30 AM EDT Office Visit [place] [facility] [address] [place] [address] Tenisha Lara MD [address] [place] [address] Health Maintenance Due Date Last Done Comments Eye Exam 09/06/1955 Alcohol/Substance Use Screening 1957 Hepatitis C Screening 09/06/1963 RSV Patients and Patients Aged 60 years or older (1 - 1-dose 75+ series) 2020 Zoster Vaccines (2 of 3) 11/20/2023 09/25/2023 COVID-19 Vaccine ( - 2023- season) 2023 03/21/2023, 12/02/2021, 02/12/2021, Additional history exists Diabetes: Hemoglobin A1C 02/02/2024 08 024, 09/13/2022, 07/07/2021, Additional history exists Depression Screening 11/01/2024 11/02/2023, 11/02/19 Diabetes: Foot Exam 11/01/2024 11/02/2023 Lipid Panel 11/01/2024 11/02/2023, 09/01, 07/07/2021, Additional history exists SDOH Screening 11/01/2024 11/02/2023 Tobacco Screening 11/01/2024 11/02/2023 Influenza Vaccine (Season Ended) 2024 01/10/2023, 01/20/2022, 03/04/2020, Additional history exists DTaP/Tdap/Td Vaccines (4 - Td or Tdap) 09/24/2033 09/25/2023, 07/01/2009, 07/01/2009 Pneumococcal Vaccine: 50+ Years Completed 10/25/2015, 01/16/2015, 09/11/2009 HIB Vaccines Aged Out No longer eligi ble based on patient's age to complete this topic HPV Vaccines Aged Out No longer eligi ble based on patient's age to complete this topic Hepatitis A Vaccines Aged Out No long er eligible based on patient's age to complete this topic Hepatitis B Vaccines Aged Out No long er eligible based on patient's age to complete this topic IPV Vaccines Aged Out No longer eligi ble based on patient's age to complete this topic Meningococcal B Vaccine Aged Out No l onger eligible based on patient's age to complete this topic Meningococcal Vaccine Aged Out No kamilah migdalia eligible based on patient's age to complete this topic RSV under 20 months Aged Out No longe r eligible based on patient's age to complete this topic Rotavirus Vaccines Aged Out No longer eligible based on patient's age to complete this topic Procedures Procedure Name Priority Date/Time Associated Diagnosis Comments HEMOGLOBIN A1C Routine 11/02/2023 9:31 AM EDT Type 2 diabetes mellitus with hyperglycemia, with long-term current use of insulin ([facility]) LIPID PANEL, STANDARD Routine 11/02/2023 9:31 AM EDT Type 2 diabetes mellitus with hyperglycemia, with long-term current use of insulin ([facility]) from Last 3 Months or Most Recently Relevant to Health Maintenance Results * (ABNORMAL) Hemoglobin A1c (11/02/2023 9:31 AM EDT) Hemoglobin A1c 7.1(H) 4.8 - 5.6 % [facility] 1 Comment: ? Prediabetes: 5.7 - 6.4 ? Diabetes: >6.4 ? Glycemic control for adults with diabetes: <7.0 Blood Venous blood specimen / Unknown 11/02/2023 9:31 AM EDT 11/02/2023 Narrative [facility] 1 - 11/03/2023 6:05 AM EDT Performed at: ??01 - [facility] [address] ??[id number] Docket Clerk: Charla Cunningham MD, Phone: ??[phone] us Tenisha Lara MD LAB BLOOD ORDERABLES Final Resul t [facility] 1 * (ABNORMAL) Lipid Panel, Standard (11/02/2023 9:31 AM EDT) Cholesterol, Total 173 100 - 199 mg/dL [facility] 1 Triglycerides 186(H) 0 - 149 mg/dL [facility] 1 HDL Cholesterol 45 >39 mg/dL [facility] 1 VLDL Cholesterol Joel 32 5 - 40 mg/dL [facility] 1 LDL Chol Calc (NIH) 96 0 - 99 mg/dL [facility] 1 Blood Venous blood specimen / Unknown 11/02/2023 9:31 AM EDT 11/02/2023 Narrative [facility] 1 - 11/03/2023 8:09 AM EDT Performed at: ??01 - [facility] [address] ??[id number] Docket Clerk: Charla Cunningham MD, Phone: ??[phone] us Tenisha Lara MD LAB BLOOD ORDERABLES Final Resul t [facility] 1 from Last 3 Months or Most Recently Relevant to Health Maintenance Insurance MEDICARE [facility] Care Teams Flat Ironer Relationship Specialty Start Date End Date Tenisha Lara MD [address] [place] [address] PCP - General Internal Medicine 05/11/22
[2024-09-04 11:47] LABS: Basophils Percent Auto 0.6 % (0-2); Eosinophils Absolute Auto 0.2 X10*3/uL (0.0-0.4); Eosinophils Percent Auto 2.3 % (0-4); Hematocrit 29.6 % (37.0-47.0); Hemoglobin 9.3 g/dl (12.0-16.0); Imm Gran Abs Auto 0.01 X10*3/uL (0.00-0.03); Imm Gran Pct Auto 0.2 % (0.0-0.4); Lymphocytes Absolute Auto 1.2 X10*3/uL (1.2-4.9); Lymphocytes Percent Auto 18.3 % (20-40); Mean Corpuscular HGB Conc 31.4 g/dl (31.0-35.0); Mean Corpuscular Hemoglobin 25.3 pg (27.0-33.0); Mean Corpuscular Volume 80.7 fL (80.0-98.0); Mean Platelet Volume 10.5 fL (9.4-12.3); Monocytes Absolute Auto 0.6 X10*3/uL (0.1-1.2); Monocytes Percent Auto 8.8 % (2-11); Neutrophils Absolute Auto 4.5 x10*3/uL (2.0-8.3); Neutrophils Percent Auto 69.8 % (45-73); Platelet Count 177 X10*3/uL (160-400); Red Blood Count 3.67 X10*6/uL (4.20-5.50); Red Cell Distribution Width 14.6 % (11.0-16.0); White Blood Count 6.5 X10*3/uL (4.8-10.8)
[2024-09-04 12:27] LABS: Erythrocyte Sedimentation Rate 16 MM/HR (0-20)
[2024-09-04 14:27] LABS: Alanine Aminotransferase 12 U/L (0-31); Alkaline Phosphatase 78 U/L (39-117); Anion Gap 11 (12-20); Aspartate Amino Transferase 17 U/L (5-31); Bilirubin Total 0.4 mg/dL (0.0-1.0); Blood Urea Nitrogen 15 mg/dL (9-16); C Reactive Protein 0.26 mg/dL (< or = 0.50); Calcium 8.9 mg/dL (8.4-10.2); Carbon Dioxide 29 mmol/L (22-29); Chloride 106 mmol/L (96-108); Estimated Glomerular Filt Rate > 60; Glucose Random 118 mg/dL (60-115); Potassium 4.2 mmol/L (3.3-5.1); Sodium 142 mmol/L (135-145); Total Protein 6.8 g/dL (6.5-8.0)
== END 2024-09-04 10:36 | disposition home or self-care (01) ==
LOC: HO.LAB 10:35
PROVIDERS: PCP Internal Medicine; Visit Provider Student in an Organized Health Care Education/Training Program
DX: L40.9 Psoriasis, unspecified (principal)
CPT/HCPCS: 36415; 80053; 85025; 85652; 86140

== ENCOUNTER 2024-10-17 12:45 | Outpatient (AMB) | payer MEDICARE, MEDICAID, SELFPAY ==
--- NOTE | 2024-10-17 12:50 | A.OFFVIS_ITS ---
Vital Signs 10/17/24 12:59 Height 5 ft 3 in Weight 178 lb 9.191 oz BMI 31.6 BP 112/64 Blood Pressure Location Lt brachial Position Sitting Pulse 76 Pulse Source Pulse Oximeter Pulse Oximetry (%) 98 Oxygen Delivery Method Room Air Intake Visit Reasons: PSO Intake Note: Patient presents for PsO follow up. Allergies leflunomide (Arava) Allergy (Intermediate, Verified 10/17/24 12:54) swollen lisinopril (Zestril) Allergy (Intermediate, Verified 10/17/24 12:54) Cough penicillin V Allergy (Intermediate, Verified 10/17/24 12:54) Rash Bees Allergy (Intermediate, Uncoded 08/24/23 12:48) Anaphylaxis Medication List - Last Reconciled 10/17/24 by Iliana Cole MD albuterol sulfate 90 mcg/actuation (Ventolin HFA) inhalation albuterol sulfate 90 mcg/actuation (Ventolin HFA) 1 inh inhalation BID amlodipine 10 mg PO DAILY apixaban (Eliquis) 5 mg PO BID apremilast (Otezla) 30 mg PO BID carvedilol 25 mg PO BID insulin NPH isoph U-100 human (Novolin N NPH U-100 Insulin isophane) units subcut meclizine 25 mg PO TID PRN nystatin topical omeprazole 20 mg PO DAILY sacubitril-valsartan 97-103 mg (Entresto) tabs PO simvastatin 10 mg PO DAILY torsemide mg PO DAILY HPI Comments Details: Patient is a 79-year-old female with asthma, hypertension complicated by heart failure with reduced ejection fraction, diabetes, hyperlipidemia complicated by coronary artery disease, polyarticular osteoarthritis and psoriatic arthritis here today for follow up. Interval History: Patient last seen 08/24/[address] Currie. At that time she was on methotrexate. She wanted to discontinue the methotrexate because she was noting hair loss. Psoriasis doing much better except for faint patches bilaterally on her lower back. Methotrexate was discontinued and she was started on Otezla which she tolerated. Today, - Feels like the otezla is not doing well for her joints - PsO is well controlled - Gets pain in her hands. Takes Tylenol which helps Rheumatologic History: PSO dx in teens PsA dx approx 2005 MTX 01/2023 effective but caused hair loss DC 08/2023 Otezla 08/2023 Initial history: This is a 77-year-old female with psoriasis and psoriatic arthritis who presents for follow-up. She was last evaluated by Dr. Cueto 10/2020. She states that she started having psoriasis in her early teens, she develops psoriatic arthritis 10-15 years ago. She stated that when she was started on methotrexate her psoriasis rash resolved completely. She would have swollen and tender joints. Over the last year or so patient has been having right shoulder stiffness and bilateral thumb pain. Her psoriasis has come back and she has rashes behind her right ear, her lower back and her umbilicus. She does not use a steroid cream Current Rheumatology Medication(s): Otezla 30mg bid PFSH Medical History (Updated 10/17/24 @ 13:36 by Iliana Cole MD) Congestive cardiac failure Psoriasis Pacemaker Surgical History History of knee joint replacement Hx of cholecystectomy H/O: hysterectomy Family History Father CVD (cardiovascular disease) Mother Uterine cancer Social History Alcohol intake: current Alcohol intake frequency: holidays/special occasions only Patient Tobacco Use Status: Never used Tobacco Review of Systems Const Details: Review of Systems Constitutional: Denies fever, chills, weight loss ENT: Denies vision changes, eye pain or eye redness, dental caries, dry mouth GI: Denies nausea, vomiting, diarrhea, abdominal pain, change in BM Pulm: Denies SOB, SLADE, hemoptysis, wheezing Cards: Denies chest pain, palpitations Skin: Denies Raynaud's, rash, nail changes, photosensitivity, PROJECT ADMIN: Denies headaches, weakness, paresthesias, recurrent falls MSK: as per HPI All other systems reviewed and are unremarkable except noted above Physical Exam Vital Signs: Last Vital Signs Pulse 76 10/17/24 12:59 BP 112/64 10/17/24 12:59 Pulse Ox 98 10/17/24 12:59 Oxygen Delivery Method Room Air 10/17/24 12:59 BMI result Body Mass Index 31.6 Vital signs reviewed Physical Examination CONSTITUITIONAL Patient alert and cooperative. Well appearing and in no apparent painful distress MSK Hands * Right Hand: Able to make a fist. No swelling or tenderness to palpation of these joints. * Left Hand: Able to make a fist. No swelling or tenderness to palpation of these joints. * Mild Herbedens nodes noted bilaterally Wrists * Right Wrist: Full ROM. 70 degrees of wrist flexion, 80 degrees of wrist extension. No swelling or TTP * Left Wrist: Full ROM. 70 degrees of wrist flexion, 80 degrees of wrist extension. No swelling or TTP Elbows * Right Elbow: Full ROM. No swelling or TTP. No TTP of the medial and lateral epicondyles * Left Elbow: Full ROM. No swelling or TTP. No TTP of the medial and lateral epicondyles Shoulders * Right shoulder: Full ROM. No swelling noted. No TTP of the AC joint, subacromial bursa or posterior shoulder * Left shoulder: Full ROM. No swelling noted. No TTP of the AC joint, subacromial bursa or posterior shoulder Knees * Right knee: Full ROM. No swelling noted. No TTP of the knee joint lie or pes anserine bursa * Left knee: Full ROM. No swelling noted. No TTP of the knee joint lie or pes anserine bursa. * Surgical scar noted over each knee Ankles * Right ankle: Good ankle dorsiflexion and plantar flexion. No swelling. No TTP of the ankle joint * Left ankle: Good ankle dorsiflexion and plantar flexion. No swelling. No TTP of the ankle joint Feet * Right foot: Negative squeeze test * Left foot: Negative squeeze test Tender points? * No tenderness to palpation of the bilateral trapezius, supraspinatus, anterior costochondral junctions, bilateral suboccipital muscle insertions SKIN No rashes Results Reviewed Results Reviewed: Laboratory Tests 09/04/24 10:48 WBC 6.5 RBC 3.67 L D Hgb 9.3 L D Hct 29.6 L D Plt Count 177 ESR 16 Sodium 142 Potassium 4.2 Chloride 106 Carbon Dioxide 29 BUN 15 Creatinine 0.86 AST 17 ALT 12 C-Reactive Protein 0.26 Assessment & Plan Assessment & Plan (1) Psoriatic arthritis: Comment: PSO dx in teens PsA dx approx 2005 MTX 01/2023 effective but caused hair loss DC 08/2023 Otezla 08/2023 Code(s): L40.50 - Arthropathic psoriasis, unspecified Category: Medical Plan: #PsA Patient with PsO complicated by PsA here today for follow up Currently in remission with no signs of active disease Current complaints related to degenerative arthritis of the hands Plan - Continue Otezla 30mg bid - RTC 1 year - Labs before visit: CBC, CMP, ESR, CRP (2) Polyarticular osteoarthritis: Code(s): M15.9 - Polyosteoarthritis, unspecified Plan: #Polyarticular OA Patient s/p bilateral knee replacement Main complaint today is hand pain Recommended topical diclofenac but patient deferred Can continue to take Tylenol up to 1000mg bid (3) Anemia: Code(s): D64.9 - Anemia, unspecified Qualifiers: Anemia type: unspecified type Qualified Code(s): D64.9 - Anemia, unspecified Plan: #Anemia Patient with new anemia compared to 1 year ago Advised her to get further work up from primary including stool test for occult blood Currently on iron tablets prescribed by primary (4) Long-term current use of apremilast: Code(s): Z79.61 - roasterman (current) use of immunomodulator Plan: #Long-term Current Use of Apremilast Risks and benefits of Apremilast in the management of psoriatic arthritis and psoriasis discussed with the patient. Benefits include decreased joint pain and morbidity Risks include GI upset including diarrhea, hypersensitivity reactions, significant weight loss, symptoms of depression Plan I spent 30 minutes reviewing the record and labs, taking a history, examining the patient, discussing the treatment plan, ordering diagnostic work up and documenting in the medical record Orders: Orders XR DEXA axial skeleton Today M81.0 - Age-related osteoporosis without current pathological fracture Complete Blood Count Auto Diff 1 Year L40.50 - Arthropathic psoriasis, unspecified Comprehensive Met. Panel 1 Year L40.50 - Arthropathic psoriasis, unspecified C Reactive Protein 1 Year L40.50 - Arthropathic psoriasis, unspecified Erythrocyte Sedimentation Rate 1 Year L40.50 - Arthropathic psoriasis, unspecified Coding Level of Care Code Est Pt Level 4 (09357) Complex EM visit Add On G2211 Diagnoses Psoriatic arthritis L40.50 Polyarticular osteoarthritis M15.9 Anemia, unspecified type D64.9 Anemia type: unspecified type Long-term current use of apremilast Z79.61
[2024-10-17 12:59] VITALS: BP 112/64; PULSE 76; O2SAT 98; BMI 31.6
--- OUTSIDE RECORDS SUMMARY | 2024-10-17 13:09 | XMS_ITS | Clinical Summary ---
Author Organization [facility] Address [address] [place] [address] Care Team Providers Care Director Of Retail Name Role Phone Tenisha Lara MD Primary Care Provider [phone] Allergies Active Allergy Reactions Criticality Noted Date [...] 10 MG Take 10 mg by mouth Once per day. 023 Active Lancet Devices (Autolet) lancing deviceIndication s:Type 2 diabetes mellitus with diabetic peripheral angiopathy without gangrene, without long-term current use of insulin ([facility]) use three times daily and as needed for 30 days 1 each 3 023 Active albuterol (2.5 MG/3ML) 0.083% nebulizer solution 3 mL. Active Ventolin HFA 108 (90 Base) MCG/ACT inhaler PRN 022 Active amLODIPine (Norvasc) 10 MG tablet Take 10 mg by mouth Once per day. 023 Active Blood Glucose Monitoring Suppl (ONE TOUCH ULTRA 2) w/Device kit 022 Active Breo Ellipta 100-25 MCG/ACT aerosol powder Inhale 1 puff Once per day. PRN 022 Active Spiriva Respimat 1.25 MCG/ACT inhaler PRN 10/13/2 022 Active sacubitril-valsa rtan (Entresto) 97-103 MG tablet Take 1 tablet by mouth in the morning and 1 tablet in the evening. Active nitroglycerin (Nitrostat) 0.4 MG SL tabletIndication s:Nonischemic cardiomyopathy (CMS/HCC) Place 1 tablet (0.4 mg) under the tongue every 5 (five) minutes if needed for chest pain. May repeat every 5 minutes as needed for a total of 3 tablets in 15 minutes. If pain persists after 3 doses, seek immediate medical attention. 25 tablet 024 Active spironolactone (Aldactone) 25 MG tabletIndication s:Nonischemic cardiomyopathy (CMS/HCC) Take 2 tablets (50 mg) by mouth Once per day. 180 tablet 3 024 2024 Active meclizine (Antivert) 25 MG tabletIndication s:Vertigo Take 1 tablet (25 mg) by mouth if needed in the morning, at noon, and at bedtime for dizziness. 90 tablet 1 024 Active apixaban (Eliquis) 5 MG tabletIndication s:Atrial fibrillation, unspecified type (CMS/HCC) Take 1 tablet (5 mg) by mouth 2 times daily. 180 tablet 3 024 2024 Active omeprazole (PriLOSEC) [address] capsuleIndicatio ns:Gastroesophag eal reflux disease without esophagitis Take 1 capsule (20 mg) by mouth before breakfast. Do not crush or chew. 90 capsule 3 025 2025 Active simvastatin (Zocor) 10 MG tabletIndication s:Type 2 diabetes mellitus with diabetic peripheral angiopathy without gangrene, without long-term current use of insulin (CMS/HCC) Take 1 tablet by mouth in the evening 90 tablet 025 Active carvedilol (Coreg) 25 MG tablet Take 1 tablet by mouth twice daily 180 tablet 025 Active nystatin (Mycostatin) creamIndications :Yeast infection Apply topically 2 times daily. 45 g 025 Active ferrous sulfate (Fe Tabs) 325 (65 Fe) MG EC tabletIndication s:Iron deficiency anemia, unspecified iron deficiency anemia type Take 1 tablet (325 mg) by mouth with breakfast. Do not crush, chew, or split. 90 tablet 025 Active traZODone (Desyrel) 100 MG tabletIndication s:Depression with anxiety TAKE 1 TO 2 TABLETS BY MOUTH ONCE DAILY NEEDED 180 tablet 025 Active NovoLIN N 100 UNIT/ML injectionIndicat ions:Type 2 diabetes mellitus with hyperglycemia, with long-term current use of insulin ([facility]) INJECT 24 UNITS SUBCUTANEOUSLY BEFORE BREAKFAST AND BEFORE SUPPER 20 mL 025 Active EPINEPHrine (Epipen) 0.3 MG/0.3ML injection syringe Inject 0.3 mL (0.3 mg) as directed 1 (one) time for 1 dose. 1 each 2 025 Active glucose blood (OneTouch Ultra) test stripIndications :Type 2 diabetes mellitus with diabetic peripheral angiopathy without gangrene, with long-term current use of insulin ([facility]) USE 1 STRIP TO CHECK GLUCOSE TWICE DAILY NEEDED 50 each 025 Active nystatin (Mycostatin) creamIndications :Yeast infection Apply topically 2 times daily. 45 g 023 2024 Discontinued(R eorder (will not trigger notification to Pharmacy)) glucose blood (OneTouch Ultra) test stripIndications :Type 2 diabetes mellitus with diabetic peripheral angiopathy without gangrene, with long-term current use of insulin ([facility]) USE 1 STRIP TO CHECK GLUCOSE TWICE DAILY NEEDED 50 each 023 2024 Discontinued(R eorder (will not trigger notification to Pharmacy)) EPINEPHrine (Epipen) 0.3 MG/0.3ML injection syringe Inject 0.3 mL (0.3 mg) as directed 1 (one) time for 1 dose. 1 each 024 2024 Discontinued(R eorder (will not trigger notification to Pharmacy)) traZODone (Desyrel) 100 MG tabletIndication s:Depression with anxiety TAKE 1 TO 2 TABLETS BY MOUTH ONCE DAILY NEEDED 180 tablet 025 2024 Discontinued NovoLIN N 100 UNIT/ML injectionIndicat ions:Type 2 diabetes mellitus with hyperglycemia, with long-term current use of insulin ([facility]) INJECT 25 UNITS SUBCUTANEOUSLY BEFORE BREAKFAST AND BEFORE SUPPER 20 mL 025 2024 Discontinued EPINEPHrine (Epipen) 0.3 MG/0.3ML injection syringe Inject 0.3 mL (0.3 mg) as directed 1 (one) time for 1 dose. 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 1 Type 2 diabetes mellitus 09/10/2014 Overview (08/25/2022): Diabetes mellitus Encounters Date Type Department Care Team Description 10/15/2024 Refill [facility] [address] [place] [id number] Tenisha Lara MD Type 2 diabetes mellitus with diabetic peripheral angiopathy without gangrene, with long-term current use of insulin ([facility]) 09/30/[address] [address] Tenisha Lara MD Depression with anxiety; Type 2 diabetes mellitus with hyperglycemia, with long-term current use of insulin ([facility]) 09/25/2024 Results Follow-Up [address] [address] [place] Michelle CNP Comprehensive metabolic panel, Magnesium, Iron Deficiency Anemia [place] With Complete Blood Count (CBC) With Differential [[id number]], Additional followed-up results: 6 09/19/2024 9:30 AM EDT Office Visit [address] [address] Tenisha Lara MD Type 2 diabetes mellitus with hyperglycemia, with long-term current use of insulin [place] (Primary Dx); Yeast infection; Anemia, unspecified type; Immunization due 09/19/2024 Travel 09/06/[address] [address] Tenisha Lara MD 08/22/2024 Refill [facility] [address] [place] [address] Tenisha Lara MD Type 2 diabetes mellitus with diabetic peripheral angiopathy without gangrene, without long-term current use of insulin [place] 08/20/[address] [address] Tenisha Lara MD Gastroesophageal reflux disease without esophagitis 08/14/[address] [address] Tenisha Lara MD Gastroesophageal reflux disease without esophagitis from Last 3 Months Immunizations Immunization Administration Dates Next Due Influenza High-dose Quadriva lent Preservative Free 01/10/2023,01/20/2022,03/04/2020 Influenza injectable quadriv alent preservative free 01/10/2019,01/16/2015 Influenza, High Dose Seasona l, Preservative Free 11/26/2016 Influenza, IIV3, injectable 01/04/2018,1 04/03/2015,01/17/2014,01/18 Influenza, Split (incl. moe fied surface antigen) 01/12/2012,02/08/2011,12/18/2009 Moderna Covid-19 Vaccine 12+ 09/19/2024 Pneumococcal Conjugate PCV 13 10/25/2015, 010 Pneumococcal [...] your housing situation today? I have clint don 09/25/[address] you li [...] Sign Reading Time Taken Comments Blood Pressure 102/69 09/19/2024 9:39 AM EDT Pulse 76 09/19/2024 9:39 AM EDT Temperature 36.4 C (97.6 F) 09/19/2024 9:39 AM EDT Respiratory Rate 16 09/19/2024 9:39 AM EDT Oxygen Saturation 99% 11/02/2023 8:32 AM EDT Inhaled Oxygen Concentration - - Weight 83 kg (183 lb) 09/19/2024 9:39 AM EDT Height 152.4 cm (5') 09/19/2024 9:39 AM EDT Body Mass Index 35.74 09/19/2024 9:39 AM EDT Plan of Treatment Upcoming Encounters Date Type Department Care Team (Late st Contact Info) Description 10/28/2024 12:00 PM EDT Office Visit [facility] MEDICAL [address] [place] [address] Kourtney Benavides MD [address] [place] [address] 03/11/2025 11:00 AM EST Office Visit [facility] MEDICAL [address] [place] [address] Tenisha Lara MD [address] [place] [address] Health Maintenance Due Date Last Done Comments Eye Exam 09/06/1955 Alcohol/Substance Use Screening 1957 Hepatitis C Screening 09/06/1963 RSV Patients and Patients Aged 60 years or older (1 - 1-dose 75+ series) 2020 Zoster Vaccines (2 of 3) 11/20/2023 09/25/2023 Depression Screening 11/01/2024 11/02/2023, 11/02/19 Diabetes: Foot Exam 11/01/2024 11/02/2023 SDOH Screening 11/01/2024 11/02/2023 Influenza Vaccine (#1) 2024 , 01/20/2022, 03/04/2020, Additional history exists COVID-19 Vaccine ( season) 2025 09/19/2024, 03/21/2023, 12/02/2021, Additional history exists Diabetes: Hemoglobin A1C 03/21/2025 025, 11/02/2023, 09/13/2022, Additional history exists Lipid Panel 09/19/2025 09/19/2024, 08/0 04/2023, 09/13/2022, Additional history exists Tobacco Screening 09/19/2025 09/19/2024 DTaP/Tdap/Td Vaccines (4 - Td or Tdap) [...] Procedure Name Priority Date/Time Associated Diagnosis Comments LIPID PANEL, STANDARD Routine 09/19/2024 10:13 AM EDT Type 2 diabetes mellitus with hyperglycemia, with long-term current use of insulin ([facility]) HEMOGLOBIN A1C Routine 09/19/2024 10:13 AM EDT Type 2 diabetes mellitus with hyperglycemia, with long-term current use of insulin ([facility]) VITAMIN B12 Routine 09/19/2024 10:13 AM EDT Anemia, unspecified type FOLATE, SERUM Routine 09/19/2024 10:13 AM EDT Anemia, unspecified type FERRITIN Routine 09/19/2024 10:13 AM EDT Anemia, unspecified type IRON AND TOTAL IRON BINDING CAPACITY Routine 09/19/2024 10:13 AM EDT Anemia, unspecified type IRON DEFICIENCY ANEMIA CASCADE WITH COMPLETE BLOOD COUNT Routine 09/19/2024 10:13 AM EDT Anemia, unspecified type MAGNESIUM Routine 09/19/2024 10:13 AM EDT Type 2 diabetes mellitus with hyperglycemia, with long-term current use of insulin ([facility]) COMPREHENSIVE METABOLIC PANEL Routine 09/19/2024 10:13 AM EDT Type 2 diabetes mellitus with hyperglycemia, with long-term current use of insulin ([facility]) from Last 3 Months Results * (ABNORMAL) Iron Deficiency Anemia [place] With Complete Blood Count (CBC) With Differential [[id number]] (09/19/2024 10:13 AM EDT) Pathologist [facility] White Blood Cell Count 8.7 3.4 - 10.8 x10E3/uL [facility] Red Blood Cell Count 4.10 3.77 - 5.28 x10E6/uL [facility] 1 Hemoglobin 10.9(L) 11.1 - 15.9 g/dL [facility] 1 Hematocrit 34.8 34.0 - 46.6 % [facility] 1 MCV 85 79 - 97 fL [facility] 1 MCH 26.6 26.6 - 33.0 pg [facility] 1 MCHC 31.3(L) 31.5 - 35.7 g/dL [facility] 1 RDW 14.3 11.7 - 15.4 % [facility] 1 Platelet Count 196 150 - 450 x10E3/uL [facility] 1 Neutrophils 75 Not Estab. % [facility] 1 Lymphocytes 16 Not Estab. % [facility] 1 Monocytes 7 Not Estab. % [facility] 1 Eosinophils 1 Not Estab. % [facility] 1 Basophils 1 Not Estab. % [facility] 1 Absolute Neutrophils 6.6 1.4 - 7.0 x10E3/uL [facility] 1 Absolute Lymphocytes 1.4 0.7 - 3.1 x10E3/uL [facility] 1 Absolute Monocytes 0.6 0.1 - 0.9 x10E3/uL [facility] 1 Absolute Eosinophils 0.1 0.0 - 0.4 x10E3/uL [facility] 1 Absolute Basophils 0.1 0.0 - 0.2 x10E3/uL [facility] 1 Immature Granulocytes 0 Not Estab. % [facility] 1 Immature Grans (Abs) 0.0 0.0 - 0.1 x10E3/uL [facility] 1 Iron Def Anemia Casc Iron cascade info [facility] 1 Blood Venous blood specimen / Unknown 09/19/2024 10:13 AM EDT 09/19/2024 Narrative [facility] 1 - 09/20/2024 6:05 AM EDT Performed at: - [facility] [id number] Electrical Designer: Charla Cunningham MD, Phone: [phone] Tenisha Lara MD LAB BLOOD ORDERABLES Final Resul t [facility] * (ABNORMAL) Iron and TIBC (09/19/2024 10:13 AM EDT) [facility] Iron Binding Capacity 518(H) 250 - 450 ug/dL [facility] 1 UIBC 490(H) 118 - 369 ug/dL [facility] Iron, Total 28 27 - 139 ug/dL [facility] % Saturation 5(LL) 15 - 55 % [facility] 1 Blood Venous blood specimen / Unknown 09/19/2024 10:13 AM EDT 09/19/2024 Narrative [facility] 1 - 09/20/2024 6:05 AM EDT Performed at: [facility] [address] [id number] Electrical Designer: Charla Cunningham MD, Phone: [phone] us Tenisha Lara MD LAB BLOOD ORDERABLES Final Resul t Performing Organization Address City/[facility]/ZIP Co de Phone Number [facility] * Magnesium (09/19/2024 10:13 AM EDT) Pathologist [facility] Magnesium 2.0 1.6 - 2.3 mg/dL [facility] 1 Blood Venous blood specimen / Unknown 09/19/2024 10:13 AM EDT 09/19/2024 Narrative [facility] 1 - 09/20/2024 8:06 AM EDT Performed at: - [facility] [id number] Electrical Designer: Charla Cunningham MD, Phone: [phone] us Tenisha Lara MD LAB BLOOD ORDERABLES Final Resul t Performing Organization Address [facility] de Phone Number [facility] * (ABNORMAL) Hemoglobin A1c (09/19/2024 10:13 AM EDT) [facility] Hemoglobin A1c 6.6(H) 4.8 - 5.6 % [facility] Comment: Prediabetes: 5.7 - 6.4 Diabetes: >6.4 Glycemic control for adults with diabetes: <7.0 Blood Venous blood specimen / Unknown 09/19/2024 10:13 AM EDT 09/19/2024 Narrative [facility] 1 - 09/20/2024 6:05 AM EDT Performed at: - [facility] [id number] Electrical Designer: Charla Cunningham MD, Phone: [phone] us Tenisha Lara MD LAB BLOOD ORDERABLES Final Resul t Performing Organization Address City/[facility] Co de Phone Number [facility] * Folate, Serum [[id number]] (09/19/2024 10:13 AM EDT) Pathologist [facility] Folate, Serum 7.3 >3.0 ng/mL [facility] Comment: A serum folate concentration of less than 3.1 ng/mL is considered to represent clinical deficiency. Blood Venous blood specimen / Unknown 09/19/2024 10:13 AM EDT 09/19/2024 Narrative [facility] 1 - 09/20/2024 6:05 AM EDT Performed at: [address] [id number] Electrical Designer: Charla Cunningham MD, Phone: [phone] Tenisha Lara MD LAB BLOOD ORDERABLES Final Resul t Performing Organization Address [facility] de Phone Number [facility] * (ABNORMAL) Ferritin (09/19/2024 10:13 AM EDT) Ferritin 13(L) 15 - 150 ng/mL [facility] 1 Blood Venous blood specimen / Unknown 09/19/2024 10:13 AM EDT 09/19/2024 Narrative [facility] 1 - 09/20/2024 6:05 AM EDT Performed at: [facility] [id number] Electrical Designer: Charla Cunningham MD, Phone: [phone] Tenisha Lara MD LAB BLOOD ORDERABLES Final Resul t Performing Organization Address [facility] de Phone Number [facility] * Vitamin B12 (09/19/2024 10:13 AM EDT) Vitamin B12 477 232 - 1,245 pg/mL [facility] 1 Blood Venous blood specimen / Unknown 09/19/2024 10:13 AM EDT 09/19/2024 Narrative [facility] 1 - 09/20/2024 6:05 AM EDT Performed at: [facility] [id number] Electrical Designer: Charla Cunningham MD, Phone: [phone] Tenisha Lara MD LAB BLOOD ORDERABLES Final Resul t Performing Organization Address [facility] de Phone Number [facility] * Lipid Panel, Standard (09/19/2024 10:13 AM EDT) Cholesterol, Total 155 100 - 199 mg/dL [facility] 1 Triglycerides 110 0 - 149 mg/dL [facility] HDL Cholesterol 51 >39 mg/dL [facility] 1 VLDL Cholesterol Joel 20 5 - 40 mg/dL [facility] 1 LDL Chol Calc (NIH) 84 0 - 99 mg/dL [facility] 1 Blood Venous blood specimen / Unknown 09/19/2024 10:13 AM EDT 09/19/2024 Narrative [facility] 1 - 09/20/2024 6:05 AM EDT Performed at: 01 - [facility] [id number] Electrical Designer: Charla Cunningham MD, Phone: [phone] us Tenisha Lara MD LAB BLOOD ORDERABLES Final Resul t [facility] * (ABNORMAL) Comprehensive metabolic panel (09/19/2024 10:13 AM EDT) Glucose 135(H) 70 - 99 mg/dL [facility] 1 Urea Nitrogen (BUN) 19 8 - 27 mg/dL [facility] 1 Creatinine, Serum 0.90 0.57 - 1.00 mg/dL [facility] 1 eGFR 65 >59 mL/min/1.7 3 [facility] 1 BUN/Creatinine Ratio 21 12 - 28 [facility] 1 Sodium 139 134 - 144 mmol/L [facility] 1 Potassium 4.9 3.5 - 5.2 mmol/L [facility] 1 Chloride 101 96 - 106 mmol/L [facility] 1 Anion Gap 16.0 10.0 - 18.0 mmol/L [facility] 1 Carbon Dioxide 22 20 - 29 mmol/L [facility] 1 Calcium 9.5 8.7 - 10.3 mg/dL [facility] 1 Protein, Total 7.0 6.0 - 8.5 g/dL [facility] 1 Albumin 4.5 3.8 - 4.8 g/dL [facility] 1 Globulin 2.5 1.5 - 4.5 g/dL [facility] 1 Bilirubin, Total 0.2 0.0 - 1.2 mg/dL [facility] 1 Alkaline Phosphatase 98 44 - 121 IU/L [facility] 1 AST 14 0 - 40 IU/L [facility] 1 ALT 11 0 - 32 IU/L [facility] 1 Blood Venous blood specimen / Unknown 09/19/2024 10:13 AM EDT 09/19/2024 Narrative [facility] 1 - 09/20/2024 6:05 AM EDT Performed at: 01 - [facility] [address] [id number] Electrical Designer: Charla Cunningham MD, Phone: [phone] us Tenisha Lara MD LAB BLOOD ORDERABLES Final Resul t [facility] 1 from Last 3 Months Insurance MEDICARE [facility] Care Teams Director Of Retail Relationship Specialty Start Date End Date Tenisha Lara MD [address] [place] [id number] PCP - General Internal Medicine 05/11/22
== END 2024-10-17 13:44 | disposition home or self-care (01) ==
PROVIDERS: PCP Internal Medicine; Visit Provider Student in an Organized Health Care Education/Training Program
DX: L40.50 Arthropathic psoriasis, unspecified (principal); M15.9 Polyosteoarthritis, unspecified; D64.9 Anemia, unspecified; Z79.61 Long term (current) use of immunomodulator
CPT/HCPCS: 99214; G2211

== ENCOUNTER → 2024-10-17 12:45 | Outpatient (BNVA) | payer MEDICARE, MEDICAID, SELFPAY | PROVIDERS: PCP Internal Medicine; Visit Provider Student in an Organized Health Care Education/Training Program | DX: M15.9 Polyosteoarthritis, unspecified (principal); L40.50 Arthropathic psoriasis, unspecified; D64.9 Anemia, unspecified; Z79.61 Long term (current) use of immunomodulator; Z79.01 Long term (current) use of anticoagulants; Z79.899 Other long term (current) drug therapy | CPT/HCPCS: 99212 ==